=== PATIENT | female | born 2000 | race Caucasian/White ===

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

== ENCOUNTER 2021-04-05 20:55 | Emergency (ER) | payer OTHER, MEDICAID, SELFPAY ==
[2021-04-05 20:57] VITALS: BP 141/87; PULSE 71; RESP 16; TEMP 36.4; O2SAT 100; BMI 25.4
--- NOTE | 2021-04-05 22:08 | EX.ED.DYSGE1 ---
HPI History of Present Illness Chief Complaint: Anxiety Narrative Narrative: 21-year-old female presenting with anxiety. She states she has a long history of anxiety. She states she has not bipolar. She decided she would stop taking her medications 3 years ago and has intermittent episodes of anxiety. Currently she thinks that she is anxious because she has a new job. She denies chest pain or shortness of breath. She denies fever or chills. She states she is otherwise eating and drinking normally. She does have some difficulty sleeping but is getting sleep. She states that she does have a history of insomnia in the past. She has not seen her primary care provider or psychiatric professional in years. [facility] Medical History Anxiety Asthma Migraines Home Medications hydroxyzine pamoate [Vistaril] 25 mg PO TID PRN #30 cap 04/05/21 [Rx Last Taken Unknown] Allergy/AdvReac Type Severity Reaction Status Date / Time escitalopram [From Lexapro] Allergy Rash Verified 04/05/21 20:56 Social History Smoking Status: Never smoker ROS ROS ED Constitutional Constitutional ED: Denies chills or fever(s) Eyes Eyes: Denies blurry vision or change in vision ENT ENT ED: Denies ear pain or rhinorrhea Cardiovascular Cardiovascular: Denies chest pain or palpitations Respiratory/Chest Respiratory/Chest: Denies cough or dyspnea Gastrointestinal Gastrointestinal: Denies abdominal pain, nausea or vomiting Genitourinary Genitourinary ED: Denies dysuria or hematuria Musculoskeletal Musculoskeletal: Denies arthralgias or myalgias Neurologic Neurologic: Denies headache(s) or weakness Psychiatric Psychiatric: Reports anxiety; Denies suicidal ideation or suicidal thoughts EXAM Physical Exam Const Vital Signs: 04/05/21 20:57 Temperature 97.6 F L Temperature Source Temporal Pulse Rate 71 Respiratory Rate 16 Blood Pressure 141/87 H Blood Pressure Mean 105 Pulse Ox 100 Oxygen Delivery Method Room Air Positive well nourished General Appearance ED: NAD HEENT Reports moist mucous membranes Negative for trauma Eyes PERRL and EOMs intact bilaterally Resp normal respiratory effort and clear to auscultation bilaterally Cardio regular rate, regular rhythm and no murmurs GI normal to inspection, nondistended, normoactive bowel sounds Neuro oriented x3 and CN's II-XII intact bilaterally Sensorium / Orientation: alert Psych mental status grossly normal Mood & Affect: anxious Skin no rashes or lesions noted and no wounds MDM MDM MDM Narrative Medical decision making narrative: Patient presenting with anxiety. She has a history of this. She thinks that the stress from her new job is causing it. She is not on any medication because she took her self off of it. From her story she does not sound manic. She has not suicidal or homicidal. Patient was given Ativan and felt improved. I will give her hydroxyzine for home until she can follow-up with Dr. Souza. Patient stable at this time. Impression: 1. Anxiety Discharge Plan Triage Chief Complaint: Anxiety ED Provider: Gold Springer Dx/Rx/DC Orders Instructions: ED Anxiety Reaction Prescriptions: New hydroxyzine pamoate [Vistaril] 25 mg capsule 25 mg PO TID PRN (Reason: anxiety) Qty: 30 RF: 0 Primary Care Provider: Rubia Souza Referrals: Rubia Souza MD [Primary Care Provider] - Disposition Disposition: Home, Self Care
[2021-04-05] MEDS: LORazepam 1 MG Tablet PO (22:17)
--- NOTE | 2021-04-05 22:51 | ED.RN ---
patient reports feeling better and comfortable going home
== END 2021-04-05 23:14 | disposition home or self-care (01) ==
PROVIDERS: Emergency Provider Student in an Organized Health Care Education/Training Program; PCP Pediatrics
DX: F41.9 Anxiety disorder, unspecified (principal); J45.909 Unspecified asthma, uncomplicated
CPT/HCPCS: 99283

== ENCOUNTER 2021-05-02 17:24 | Emergency (ER) | payer OTHER, MEDICAID, SELFPAY ==
[2021-05-02 17:25] VITALS: BP 120/89; PULSE 77; RESP 16; TEMP 36.6; O2SAT 99; BMI 25.6
--- NOTE | 2021-05-02 17:26 | NURSING ---
NO OLD EKGS
--- NOTE | 2021-05-02 17:48 | EKG12_ITS ---
Test Reason : CP Blood Pressure : / mmHG Vent. Rate : 063 BPM Atrial Rate : 063 BPM P-R Int : 132 ms QRS Dur : 074 ms QT Int : 380 ms P-R-T Axes : 046 061 027 degrees QTc Int : 388 ms Normal sinus rhythm with sinus arrhythmia Normal ECG Confirmed by ALVARO CHRISTENSEN, FELICIA ([id number]), proposal editor KATT CHEN ([id number]) on 05/06/2021 1:20:18 PM Referred By: KIMBERLY Confirmed By:FELICIA JOHN MD
[2021-05-02 18:00] VITALS: BP 110/67
[2021-05-02 18:00] LABS: Absolute Lymphocyte Count 2.72 X10^3/uL (0.83-4.51); Absolute Neutrophil Count 5.5 X10^3/uL (2.0-7.7); Basophil# 0.07 X10^3/uL; Basophil% 0.8 % (0-1); Eosinophil# 0.06 X10^3/uL; Eosinophils% 0.7 % (0-5); Hematocrit 42.5 % (37-47); Hemoglobin 13.6 g/dL (12.0-15.0); Lymphocyte # 2.72 X10^3/ul (0.83-4.51); Lymphocyte % 30.3 % (19-41); Mean Corpuscular Hgb 27.5 pg (27.0-32.0); Mean Corpuscular Volume 85.9 fL (81-99); Mean Platelet Vol. 11.6 fl (6.2-12.0); Monocyte% 6.7 % (0-10); NRBC Flagged by Analyzer 0 % (0-5); Neutrophil % 61.3 % (47-70); Platelet Count 294 K/mm3 (150-450); RBC Distribution Width CV 12.4 % (11.6-14.6); RBC Distribution Width SD 38.6 fl (35.1-43.9); Red Blood Count 4.95 M/mm3 (4.2-5.4)
--- NOTE | 2021-05-02 18:00 | RAD_ITS ---
STUDY: X-RAY CHEST REASON FOR EXAM: Female, 21 years old. CP TECHNIQUE: AP portable COMPARISON: December 2015 FINDINGS: The lungs are clear and expanded. There is no demonstrated pleural abnormality. Normal size heart. Normal mediastinum and bailey. Normal visualized pulmonary arteries. Normal visualized aortic arch and descending thoracic aorta. Normal visualized thoracic spine. Normal visualized ribs, clavicles, and shoulders. There is no demonstrated abnormality of the visualized soft tissue structures of the upper abdomen. RAD/Chest 1 View (Portable) IMPRESSION: Normal x-ray examination of the chest. Electronically Signed: Fabio Ramirez MD at 18:25 EDT , Service support ,
[2021-05-02] MEDS: 0.9% Normal Saline 1,000 ML 150 ML IV (18:11)
[2021-05-02 18:26] LABS: D-Dimer Quantitative (DVT/PE) 0.85 FEU/ug/m (0.27-0.49)
[2021-05-02 18:31] LABS: Anion Gap 7 (5-15); BUN 8 mg/dL (7-18); BUN/Creat Ratio 10.8 RATIO (10-20); Calcium,Total 8.8 mg/dL (8.5-10.1); Chloride 104 mmol/L (98-107); Creatinine, Serum 0.74 mg/dL (0.55-1.02); EST Glomerular Filtration Rate 106 mL/min (>60); Est Glom Filt Rate - Afr Amer 128 mL/min (>60); Estimated Creatinine Clearance 95.91 ml/min; Glucose 80 mg/dL (74-106); Potassium 3.8 mmol/L (3.5-5.1); Sodium Level 138 mmol/L (136-145); Thyroid Stim Hormone (TSH) 2.04 uIU/mL (0.358-3.74); Troponin-I HS < 3.0 pg/mL (3.0-53.7)
[2021-05-02 18:32] LABS: Internal QC Validated? YES +Cl - CLEAR BKGD; Pregnancy, Serum, hCG Quali. NEGATIVE Negative
--- NOTE | 2021-05-02 18:39 | CT_ITS ---
STUDY: CTA CHEST REASON FOR EXAM: Female, 21 years old. chest pain RADIATION DOSAGE (If Supplied By Facility): CTDIvol = ( 11.78 ) mGy, DLP = ( 368.35 ) mGycm TECHNIQUE: The examination was performed with the intravenous administration of IV 100mL Isovue-370. Post-processing of the angiographic images was performed, with multiplanar reformation and 3D reconstruction. Individualized dose optimization techniques were used for this CT. COMPARISON: Portable chest 05/02/2021 FINDINGS: Normal enhancement of the main pulmonary artery and right and left pulmonary arteries. Normal enhancement of the bilateral peripheral pulmonary arteries. There is no demonstrated pulmonary embolism. Normal thoracic aorta and visualized great vessels. There is no demonstrated aortic dissection. Normal heart and pericardium. Normal mediastinum. Normal hilar regions. Normal visualized trachea and bronchi. The lungs are well expanded. Normal pulmonary parenchyma. Normal pleura. Normal chest wall structures. Normal osseous structures. Normal visualized upper abdomen. CT/CTA Chest W/WO Contrast IMPRESSION: Normal CTA chest examination, without a demonstrated pulmonary embolism or arterial dissection. Electronically Signed: Fabio Ramirez MD at 19:37 EDT , Service support ,
--- NOTE | 2021-05-02 18:45 | EDS_ITS ---
HPI History of Present Illness Chief Complaint: Chest Pain Informant: patient Onset/Context/Timing Onset: Today Quality: Positive for Pressure Location: Substernal Current Severity: Mild Maximum Severity: Moderate Narrative Narrative: Patient presents secondary to 15 minutes of chest pressure. She has been dealing with dizzy episodes recently which she describes as both lightheadedness and spinning. Patient states these symptoms come on fairly frequently. She has not found any specific enticing factor. She is scheduled to see a geophysical manager next week about this. Today she had chest pressure which is a new symptom for her. [facility] Medical History Anxiety Asthma Migraines Home Medications hydroxyzine pamoate [Vistaril] 25 mg PO TID PRN #30 cap 04/05/21 [Rx Last Taken Unknown] Allergy/AdvReac Type Severity Reaction Status Date / Time escitalopram [From Lexapro] Allergy Rash Verified 05/02/21 17:24 Social History Smoking Status: Never smoker ROS ROS ED Constitutional Constitutional ED: Denies chills or fever(s) Eyes Eyes: Denies change in vision ENT ENT ED: Denies sore throat Cardiovascular Cardiovascular: Reports chest pain Respiratory/Chest Respiratory/Chest: Denies cough or dyspnea Gastrointestinal Gastrointestinal: Denies abdominal pain, diarrhea, nausea or vomiting Genitourinary Genitourinary ED: Denies dysuria Musculoskeletal Musculoskeletal: Denies back pain Integumentary Denies rash Neurologic Neurologic: Reports other Details: Dizziness ; Denies headache(s) or weakness Psychiatric Psychiatric: Denies anxiety or depression Endocrine Endocrinology: Denies polydipsia or polyuria Allergic/Immunologic Allergic/Immunologic ED: Denies urticaria EXAM Physical Exam Const Vital Signs: 05/02/21 17:25 05/02/21 18:00 05/02/21 19:21 Temperature 97.9 F Temperature Source Oral Pulse Rate 77 57 L Respiratory Rate 16 20 H Blood Pressure 120/89 H 110/67 Blood Pressure Mean 99 81 Pulse Ox 99 100 Oxygen Delivery Method Room Air Room Air Positive well nourished and well developed General Appearance ED: well developed HEENT Reports normocephalic and head/scalp atraumatic Eyes PERRL and EOMs intact bilaterally Neck supple Chest Wall inspection of chest normal and palpation of chest normal Resp normal respiratory effort and clear to auscultation bilaterally Cardio regular rate and regular rhythm GI normal to inspection, nondistended, normoactive bowel sounds Palpation: soft Back/Spine no CVA tenderness Extremity normal to inspection Neuro oriented x3 and no sensory deficits noted Sensorium / Orientation: alert Motor Exam: strength 5/5 throughout Psych mental status grossly normal Skin no rashes or lesions noted Heart Score History: Slightly/Non-Suspicious ECG: Normal Age: </= 45 years Risk Factors: No Risk Factors Troponin: </= Normal Limit Score: 0 MDM MDM MDM Narrative Medical decision making narrative: Patient was placed on cardiac cath lab manager. EKG, labs, chest x-ray are obtained. Lab Data Attestation: I reviewed the patient's lab results. Labs: Laboratory Results - last 24 hr 05/02/21 05/02/21 05/02/21 17:35 17:35 17:35 WBC 9.0 RBC 4.95 Hgb 13.6 Hct 42.5 MCV 85.9 MCH 27.5 MCHC 32.0 RDW Std Deviation 38.6 RDW Coeff of Paul 12.4 Plt Count 294 MPV 11.6 Immature Gran % (Auto) 0.200 Neut % (Auto) 61.3 Lymph % (Auto) 30.3 [place] % (Auto) 6.7 Eos % (Auto) 0.7 Baso % (Auto) 0.8 Absolute Neuts (auto) 5.5 Absolute Lymphs (auto) 2.72 Nucleated RBC % 0 D-Dimer Quant (PE/DVT) Sodium 138 Potassium 3.8 Chloride 104 Carbon Dioxide 27.0 Anion Gap 7 BUN 8 Creatinine 0.74 Estim Creat Clear Calc 95.91 Est GFR (MDRD) Af Amer 128 Est GFR (MDRD) Non-Af 106 BUN/Creatinine Ratio 10.8 Glucose 80 Calcium 8.8 Troponin I High Sens < 3.0 L TSH 2.04 Serum , Qual NEGATIVE 05/02/21 17:55 WBC RBC Hgb Hct MCV MCH MCHC RDW Std Deviation RDW Coeff of Paul Plt Count MPV Immature Gran % (Auto) Neut % (Auto) Lymph % (Auto) [place] % (Auto) Eos % (Auto) Baso % (Auto) Absolute Neuts (auto) Absolute Lymphs (auto) Nucleated RBC % D-Dimer Quant (PE/DVT) 0.85 H* Sodium Potassium Chloride Carbon Dioxide Anion Gap BUN Creatinine Estim Creat Clear Calc Est GFR (MDRD) Af Amer Est GFR (MDRD) Non-Af BUN/Creatinine Ratio Glucose Calcium Troponin I High Sens TSH Serum , Qual Radiography Chest X-Ray - ED: 1 View, Read by ED Physician, Normal, Heart, Lungs and Mediastinum Diagnostic Testing: Radiology Impression Chest X-Ray 05/02/21 18:00 IMPRESSION: Normal x-ray examination of the chest. Electronically Signed: Fabio Ramirez MD at 18:25 EDT , Service support , Chest CTA 05/02/21 18:39 IMPRESSION: Normal CTA chest examination, without a demonstrated pulmonary embolism or arterial dissection. Electronically Signed: Fabio Ramirez MD at 19:37 EDT , Service support , EKG Initial EKG: Attestation: I personally reviewed and interpreted this EKG as follows: Interpretation: Sinus Rhythm (Sinus at 63 with no acute ischemia.) Treatment and Re-Evaluation Comments:: Lab work is reviewed with the patient. D-dimer is slightly elevated and patient is sent for a CTA. This reveals no evidence of PE or dissection. Patient has been on cardiac cath lab manager throughout her ED stay with no significant arrhythmias. She already has a follow-up appointment scheduled with cardiology next week. Patient is encouraged to return for worsened symptoms or concerns. Discharge Plan Triage Chief Complaint: Chest Pain ED Provider: Destiny Bruce Dx/Rx/DC Orders Clinical Impression: Atypical chest pain, Dizziness Instructions: ED Chest Pain, Uncertain Cause, ED Dizziness, Uncertain Cause Prescriptions: No Action hydroxyzine pamoate [Vistaril] 25 mg capsule 25 mg PO TID PRN (Reason: anxiety) Qty: 30 RF: 0 Primary Care Provider: Patricia Vadlivia NP Referrals: Patricia Valdivia NP, DIRECTOR OF REVENUE CYCLE MANAGEMENT-C [Primary Care Provider] - Activity Restrictions/Additional Instructions: Follow-up next week with cardiology as scheduled. Disposition Disposition: Home, Self Care
[2021-05-02 19:21] VITALS: PULSE 57; RESP 20; O2SAT 100
[2021-05-02 20:08] VITALS: BP 129/81; PULSE 64; RESP 16; O2SAT 99
== END 2021-05-02 20:08 | disposition home or self-care (01) ==
PROVIDERS: Emergency Provider Emergency Medicine; PCP Registered Nurse
DX: R07.89 Other chest pain (principal); R42 Dizziness and giddiness; R79.89 Other specified abnormal findings of blood chemistry; F41.9 Anxiety disorder, unspecified; J45.909 Unspecified asthma, uncomplicated; Z79.899 Other long term (current) drug therapy
CPT/HCPCS: 71045; 71275; 80048; 84443; 84484; 84703; 85025; 85379; 93005; 96360; 96361; 99284; J7030; Q9967; A4216

== ENCOUNTER 2021-05-09 18:50 | Emergency (ER) | payer OTHER, MEDICAID, SELFPAY ==
[2021-05-09 18:51] VITALS: BP 114/64; PULSE 75; RESP 16; TEMP 37.1; O2SAT 100
[2021-05-09 18:52] VITALS: BP 114/64; PULSE 75; RESP 16; TEMP 37.1; O2SAT 100; BMI 29.7
--- NOTE | 2021-05-09 19:38 | EKG12_ITS ---
Test Reason : CP Blood Pressure : / mmHG Vent. Rate : 071 BPM Atrial Rate : 071 BPM P-R Int : 140 ms QRS Dur : 082 ms QT Int : 384 ms P-R-T Axes : 039 061 018 degrees QTc Int : 417 ms Sinus rhythm with marked sinus arrhythmia Otherwise normal ECG Confirmed by ARACELI CHRISTENSEN, LETTY ([id number]), fan mail editor KATT CHEN ([id number]) on 05/13/2021 10:37:16 AM Referred By: MICHI Confirmed By:HERVE CHARLES MD
--- NOTE | 2021-05-09 19:59 | EDS_ITS ---
HPI History of Present Illness Chief Complaint: Chest Pain Narrative Narrative: Patient presenting with chest pain which he has been dealing with for a couple of weeks. She also has associated dizziness/lightheadedness. She was seen by cardiology yesterday and started on fludrocortisone for orthostatic hypotension. Patient states she was at work and noticed that she was having symptoms again. Patient came to the ED for evaluation. Patient denies any cardiac history or other medical problems. Patient denies fever, chills, cough. Patient states that her symptoms are similar to what she is experiencing over the last 2 weeks. PE Risk Factors: Negative for Recent Travel/Surgery, Recent Immobilization, Prior DVT or PE, Cancer and OCP + Smoking + >/=35 PFSH PFSH Medical History Anxiety Asthma Migraines Home Medications hydroxyzine pamoate [Vistaril] 25 mg PO TID PRN #30 cap 04/05/21 [Rx Last Taken Unknown] Allergy/AdvReac Type Severity Reaction Status Date / Time escitalopram [From Lexapro] Allergy Rash Verified 05/02/21 17:24 Social History Smoking Status: Never smoker ROS ROS ED Constitutional Constitutional ED: Denies chills, fever(s) or sweats Eyes Eyes: Denies blurry vision or change in vision ENT ENT ED: Denies ear pain, rhinorrhea or sore throat Cardiovascular Cardiovascular: Reports chest pain and other Details: Lightheadedness with standing ; Denies palpitations or racing heartbeat Respiratory/Chest Respiratory/Chest: Denies cough, dyspnea or sputum Gastrointestinal Gastrointestinal: Denies abdominal pain, constipation, diarrhea or vomiting Genitourinary Genitourinary ED: Denies dysuria, hematuria or urinary frequency Musculoskeletal Musculoskeletal: Denies arthralgias, myalgias or neck pain Integumentary Denies abscess, Abrasions or rash Neurologic Neurologic: Denies headache(s), paresthesias or weakness Psychiatric Psychiatric: Denies anxiety, depression, suicidal ideation or suicidal thoughts Endocrine Endocrinology: Denies polydipsia or polyuria EXAM Physical Exam Const Vital Signs: 05/09/21 18:51 05/09/21 18:52 05/09/21 20:08 Temperature 98.7 F 98.7 F Temperature Source Temporal Temporal Pulse Rate 75 75 Pulse Rate [Lying] Pulse Rate [Sitting] Pulse Rate [Standing] Respiratory Rate 16 16 Blood Pressure 114/64 114/64 Blood Pressure [Lying] Blood Pressure [Sitting] Blood Pressure [Standing] Blood Pressure Mean 80 80 Blood Pressure Mean [Lying] Blood Pressure Mean [Sitting] Blood Pressure Mean [Standing] Pulse Ox 100 100 Oxygen Delivery Method Room Air Room Air Room Air 05/09/21 20:10 Temperature Temperature Source Pulse Rate Pulse Rate [Lying] 57 L Pulse Rate [Sitting] 63 Pulse Rate [Standing] 65 Respiratory Rate Blood Pressure Blood Pressure [Lying] 100/62 Blood Pressure [Sitting] 109/67 Blood Pressure [Standing] 108/68 Blood Pressure Mean Blood Pressure Mean [Lying] 74 Blood Pressure Mean [Sitting] 81 Blood Pressure Mean [Standing] 81 Pulse Ox Oxygen Delivery Method Positive well developed General Appearance ED: well developed and NAD; Negative for pallor HEENT Reports normocephalic, head/scalp atraumatic and moist mucous membranes normocephalic and atraumatic Eyes PERRL and EOMs intact bilaterally Neck no lymphadenopathy and supple Chest Wall inspection of chest normal and palpation of chest normal Resp normal respiratory effort and clear to auscultation bilaterally Auscultation: Negative for rales, rhonchi or wheezes Cardio regular rate and regular rhythm GI Auscultation: normoactive bowel sounds Palpation: soft Narrative: Deferred Back/Spine Cervical Spine: cervical spine tenderness Extremity normal to inspection General Extremety ED: Yes edema and tenderness General Extremity: edema Neuro oriented x3 and CN's II-XII intact bilaterally Sensorium / Orientation: alert Motor Exam: strength 5/5 throughout Psych mental status grossly normal Attitude: No agitated Skin no rashes or lesions noted and no wounds General Skin Exam: Negative for jaundice or pallor Heart Score History: Slightly/Non-Suspicious ECG: Normal Age: </= 45 years Risk Factors: No Risk Factors Troponin: </= Normal Limit Score: 0 MDM MDM MDM Narrative Medical decision making narrative: Patient presenting with chest pain and dizziness that he has been experiencing for the last couple of weeks. She was seen in the ED for this on the . Patient had a negative work-up at that time except orthostatic hypotension. Patient was seen by her punch out crew member yesterday and started fluid cortisone yesterday for orthostatic hypotension. Patient had return of her symptoms. Patient is PERC negative and previously had a CTA on the which was negative. EKG on my interpretation is sinus rhythm at [address] elevation or depression. [place] interval 140 ms, QRS duration 82 ms, QTC 417 ms. Patient's heart score is 0. Lab work shows a leukocytosis of 11.3 which was present previously and is actually lower. Otherwise her lab work is normal. Troponin is less than 3. Chest x-ray shows no acute cardiopulmonary process on my interpretation and the radiologist does agree. Patient is not orthostatic in the ED today. Patient symptoms unknown but I do not believe it represents ACS or PE given she recently had CTA of the chest and is PERC negative. Patient stable for discharge at this time. Impression: 1. Chest pain, noncardiac 2. Dizziness uncertain cause Lab Data Attestation: I reviewed the patient's lab results. Labs: Laboratory Results - last 24 hr 05/09/21 05/09/21 20:03 20:03 WBC 11.3 H RBC 4.52 Hgb 12.8 Hct 39.6 MCV 87.6 MCH 28.3 MCHC 32.3 RDW Std Deviation 39.2 RDW Coeff of Paul 12.1 Plt Count 252 MPV 11.9 Immature Gran % (Auto) 0.400 Neut % (Auto) 68.3 Lymph % (Auto) 22.9 [place] % (Auto) 6.7 Eos % (Auto) 1.0 Baso % (Auto) 0.7 Absolute Neuts (auto) 7.7 Absolute Lymphs (auto) 2.58 Nucleated RBC % 0 Sodium 139 Potassium 3.7 Chloride 107 Carbon Dioxide 26.0 Anion Gap 6 BUN 8 Creatinine 0.63 Estim Creat Clear Calc 112.66 Est GFR (MDRD) Af Amer 155 Est GFR (MDRD) Non-Af 128 BUN/Creatinine Ratio 12.7 Glucose 80 Calcium 9.1 Troponin I High Sens < 3.0 L Discharge Plan Triage Chief Complaint: Chest Pain ED Provider: Gold Springer Dx/Rx/DC Orders Instructions: ED Chest Pain, Noncardiac, ED Dizziness, Uncertain Cause Prescriptions: No Action hydroxyzine pamoate [Vistaril] 25 mg capsule 25 mg PO TID PRN (Reason: anxiety) Qty: 30 RF: 0 Primary Care Provider: Patricia Valdivia NP Referrals: Skip,Patricia AUDIO/VISUAL OPERATOR, AUDIO/VISUAL OPERATOR-C [Primary Care Provider] - Disposition Disposition: Home, Self Care
[2021-05-09] MEDS: Aspirin 81 MG TAB.CHEW 324 MG PO (20:04)
[2021-05-09 20:10] VITALS: BP 100/62; BP 108/68; BP 109/67; PULSE 57; PULSE 63; PULSE 65
[2021-05-09 20:10] LABS: Absolute Lymphocyte Count 2.58 X10^3/uL (0.83-4.51); Absolute Neutrophil Count 7.7 X10^3/uL (2.0-7.7); Basophil# 0.08 X10^3/uL; Basophil% 0.7 % (0-1); Eosinophil# 0.11 X10^3/uL; Hematocrit 39.6 % (37-47); Hemoglobin 12.8 g/dL (12.0-15.0); Lymphocyte # 2.58 X10^3/ul (0.83-4.51); Lymphocyte % 22.9 % (19-41); Mean Corp Hgb Conc 32.3 g/dL (32-36); Mean Corpuscular Hgb 28.3 pg (27.0-32.0); Mean Corpuscular Volume 87.6 fL (81-99); Mean Platelet Vol. 11.9 fl (6.2-12.0); Monocyte# 0.75 X10^3/uL; Monocyte% 6.7 % (0-10); NRBC Flagged by Analyzer 0 % (0-5); Neutrophil % 68.3 % (47-70); Platelet Count 252 K/mm3 (150-450); RBC Distribution Width CV 12.1 % (11.6-14.6); RBC Distribution Width SD 39.2 fl (35.1-43.9); Red Blood Count 4.52 M/mm3 (4.2-5.4); White Blood Count 11.3 K/mm3 (4.4-11.0)
--- NOTE | 2021-05-09 20:20 | RAD_ITS ---
STUDY: X-RAY CHEST REASON FOR EXAM: Female, 21 years old. Chest pain TECHNIQUE: Single frontal view of the chest. COMPARISON: 05/02/2021. FINDINGS: The lungs are clear and expanded. There is no demonstrated pleural abnormality. Normal size heart. Normal mediastinum and bailey. Normal visualized pulmonary arteries. Normal visualized aortic arch and descending thoracic aorta. Normal visualized thoracic spine. Normal visualized ribs, clavicles, and shoulders. There is no demonstrated abnormality of the visualized soft tissue structures of the upper abdomen. RAD/Chest 1 View (Portable) IMPRESSION: Normal x-ray examination of the chest. Electronically Signed: Ajit Charles MD at 21:26 EDT Tel , Service support ,
[2021-05-09 20:43] LABS: Anion Gap 6 (5-15); BUN 8 mg/dL (7-18); BUN/Creat Ratio 12.7 RATIO (10-20); Calcium,Total 9.1 mg/dL (8.5-10.1); Chloride 107 mmol/L (98-107); Creatinine, Serum 0.63 mg/dL (0.55-1.02); EST Glomerular Filtration Rate 128 mL/min (>60); Est Glom Filt Rate - Afr Amer 155 mL/min (>60); Estimated Creatinine Clearance 112.66 ml/min; Glucose 80 mg/dL (74-106); Potassium 3.7 mmol/L (3.5-5.1); Sodium Level 139 mmol/L (136-145); Troponin-I HS < 3.0 pg/mL (3.0-53.7)
[2021-05-09 21:06] VITALS: BP 107/62; PULSE 62; RESP 16; O2SAT 94
== END 2021-05-09 21:08 | disposition home or self-care (01) ==
PROVIDERS: Emergency Provider Student in an Organized Health Care Education/Training Program; PCP Registered Nurse
DX: R07.89 Other chest pain (principal); R42 Dizziness and giddiness; F41.9 Anxiety disorder, unspecified; J45.909 Unspecified asthma, uncomplicated; Z79.899 Other long term (current) drug therapy
CPT/HCPCS: 71045; 80048; 84484; 85025; 93005; 99285; A4216

== ENCOUNTER 2025-05-15 21:55 | Emergency (ER) | payer BC, SELFPAY ==
[2025-05-15 21:55] VITALS: BP 161/83; PULSE 120; RESP 20; TEMP 36; O2SAT 100; BMI 26.9
--- NOTE | 2025-05-15 22:06 | EX.ED.DYSGE1 ---
HPI History of Present Illness Chief Complaint: Laceration Informant: patient Narrative Narrative: Patient is a 25-year-old female with past medical history of anxiety and asthma who is right-hand dominant. She states roughly 20 minutes prior to arrival she was cutting up vegetables and her cat was climbing on the curtains. She states that she looked up to tell her cat to stop and she instinctively reached out for the knife she was using an ax and then grabbed the sharp end and cut her right thumb. She denies any numbness tingling or weakness. She states she was uncertain if she would need sutures or not secondary to the laceration and therefore comes in for evaluation [facility] Medical History Anxiety Migraines Asthma Home Medications ?Medication ?Instructions ?Recorded ?Last Taken ?Type hydroxyzine pamoate 25 mg capsule 25 mg PO TID PRN anxiety #30 caps 04/05/21 Unknown Rx (Vistaril) Allergy/AdvReac Type Severity Reaction Status Date / Time escitalopram (From Lexapro) Allergy Rash Verified 05/02/21 17:24 Social History Smoking Status: Never smoker [facility] ED Constitutional Constitutional ED: Denies chills or fever(s) ENT ENT ED: Denies sore throat Cardiovascular Cardiovascular: Denies chest pain Respiratory/Chest Respiratory/Chest: Denies cough or dyspnea Gastrointestinal Gastrointestinal: Denies abdominal pain, diarrhea, nausea or vomiting Musculoskeletal Musculoskeletal: Reports other Details: Positive right hand/thumb pain Integumentary Reports other Details: Positive right thumb laceration Neurologic Neurologic: Denies headache(s), paresthesias or weakness Hematologic/Lymphatic Hematologic/Lymphatic: Denies easy bleeding or easy bruising EXAM Physical Exam Const Vital Signs: 05/15/25 21:55 05/15/25 23:04 Temperature 96.8 F L 97.9 F Temperature Source Temporal Pulse Rate 120 H 80 Respiratory Rate 20 H 18 Blood Pressure 161/83 H 115/70 Blood Pressure Mean 109 85 Pulse Ox 100 100 Oxygen Delivery Method Room Air Positive well nourished and well developed General Appearance ED: well developed HEENT HEENT Narrative: Normocephalic atraumatic Eyes PERRL and EOMs intact bilaterally General Eye ED: Negative for scleral icterus Neck supple Resp normal respiratory effort and clear to auscultation bilaterally Cardio regular rhythm Rate: tachycardic Extremity Extremity Narrative: Right upper extremity is neurovascularly intact; AIN/PIN are intact and normal. Along the volar aspect of the right thumb just below the DIP joint is a horizontal 1.5 cm laceration that is subcutaneous layer deep with minimal ooze of blood and no retained foreign object. No ligamentous or tendon damage noted either Remainder of the exam is normal Neuro oriented x3 and CN's II-XII intact bilaterally Sensorium / Orientation: alert Motor Exam: strength 5/5 throughout Psych mental status grossly normal Skin Skin Narrative: Laceration to the right thumb as documented above MDM MDM MDM Narrative Medical decision making narrative: Patient arrived to ER hypertensive and tachycardic but was visibly anxious and nervous. She sustained a simple laceration to her right thumb. There is no sign of ligamentous or tendon damage no retained foreign object or no signs of bony deformity. Therefore do not feel the need for x-ray or lab work as there is no obvious signs of secondary infection either. The patient had the wound close as documented below. Her tetanus status was updated. Following closure of the wound she is neurovascularly intact with full active range of motion and is otherwise safe for discharge Patient had the right thumb cleaned with chlorhexidine. It was anesthetized using 5 mL of 1% lidocaine without epinephrine and digital block fashion. The wound was copiously irrigated with normal saline. Then three 4-0 Ethilon sutures were placed in simple interrupted fashion. This brought the wound edges getter well with good approximation. Patient tolerated the procedure without complication History & Record Review Discussion w/independent historian: Patient Discharge Plan Triage Chief Complaint: Laceration ED Provider: Brandon Wray Dx/Rx/DC Orders Clinical Impression: Laceration of right thumb, Anxiety Instructions: ED Laceration, Hand: All Closures Prescriptions: No Action hydroxyzine pamoate [Vistaril] 25 mg capsule 25 mg PO TID PRN (Reason: anxiety) Qty: 30 0RF Stand Alone Forms: ED Work / School Excuse Primary Care Provider: Care Physician,No Primary Referrals: Patricia Valdivia ANIMAL HEALTH TECHNICIAN, ANIMAL HEALTH TECHNICIAN-C [Non-Staff] - Activity Restrictions/Additional Instructions: Please return to the ER or see your family doctor in 7 to 10 days for suture removal Print Language: Persian Disposition Disposition: Home, Self Care Discharge Date/Time: 05/15/25 23:05
[2025-05-15] MEDS: Lidocaine 1% (20 ml mdv) 20 ML Vial INFILT (22:12)
[2025-05-15 23:04] VITALS: BP 115/70; PULSE 80; RESP 18; TEMP 36.6; O2SAT 100
--- OUTSIDE RECORDS SUMMARY | 2025-05-15 23:04 | XMS RPT_ITS | CCD ---
Author Organization [facility] Team Providers Care Club Car Attendant Name Role Phone Unavailable Primary Care Provider Unavailabl e YAMILKA TOM Referring Unavailable KATELYNN CAMPO Attending Unavailable KATELYNN CAMPO Referring Unavailable KATELYNN CAMPO Referring Unavailable Unavailable Primary Care Provider Unavailabl e Allergies Allergy Classification Reported Allergen(s) Allergy Type Date of Onset Reaction(s) Facility (7 sources) Escitalopram; Translations: [ESCITALOPRAM] Drug Allergy 07-20-2020 Rash [facility] Medications Current Medications Medication Drug Class(es) Dates Sig (Normalized) Sig (Original) [id number] actuat albuterol 0.09 mg/actuat metered dose inhaler (20 sources) beta2-Adrenergic Agonist Start: 11-06-2024 take 2 puff(s) by inhalation every four hours as needed for wheezing albuterol HFA (PROVENTIL HFA, VENTOLIN HFA) 90 mcg/actuation inhaler Indications: Lower respiratory infection Inhale 2 Puffs as instructed every 4 hours as needed for wheezing/shortness of breath. 8 g 11/06/2024 Active Start: 12-29-2023 take 2.5 mg by inhal ation every four hours as needed albuterol (PROVENTIL) 2.5 mg /3 mL (0.083 %) nebulizer solution Use 3 mL via nebulizer every 4 hours as needed for wheezing/shortness of breath. Use over 5-15minutes. 75 mL 12/29/2023 Active Start: 12-29-2023 End: 05-23-2024 take 2 puff(s) by inhalation every six hours as needed albuterol HFA (PROAIR HFA) 90 mcg/actuation inhaler Inhale 2 Puffs as instructed every 6 hours as needed. 1 Each 12/29/2023 05/23/2024 Discontinued Start: 02-23-2021 End: 05-23-2024 take 2 puff(s) by inhalation every four hours as needed albuterol HFA (PROAIR HFA) 90 mcg/actuation inhaler Indications: Suspected COVID-19 virus infection , Mild intermittent asthma with exacerbation Inhale 2 Puffs as instructed every 4 hours as needed. 1 Each 02/23/2021 05/23/2024 Discontinued albuterol HFA (P ROAIR HFA) 90 mcg/actuation inhaler Inhale 2 Puffs as instructed. Active Comment on above: Inhale 2 Puffs as in structed. Inhale 2 Puffs as in structed every 4 hours as needed. Inhale 2 Puffs as in structed every 6 hours as needed. Use 3 mL via nebuliz er every 4 hours as needed for wheezing/shortness of breath. Use over 5-15minutes. benzonatate 100 mg oral capsule (1 source) Non-narcotic Antitussive Start: 5 take 1 capsule by mouth three times daily as needed for cough benzonatate (TESSALON PERLE) 100 mg capsule Indications: Lower respiratory infection Take 1 capsule by mouth three times a day as needed for cough for up to 12 doses. 12 capsule 11/06/2024 Active cetirizine hydrochloride 10 mg oral tablet (6 sources) Histamine-1 Receptor Antagonist Start: 9 take 1 tablet by mouth once daily as needed cetirizine (ZYRTEC) 10 mg tablet Indications: Seasonal allergic rhinitis due to pollen Take 1 tablet by mouth once daily as needed. 30 tablet 2 02/15/2019 Active Comment on above: Take 1 tablet by [facility] once daily as needed. doxycycline monohydrate 100 mg oral capsule (2 sources) Tetracycline-class Drug Start: 5 End: 5 take 1 capsule by mouth twice daily doxycycline monohydrate (MONODOX) 100 mg capsule Indications: Lower respiratory infection Take 1 capsule by mouth two times a day for 5 days. 10 capsule 11/06/2024 11/11/2024 Active Start: 01-01-2024 End: 01-08-2024 take 1 tablet by mouth twice daily doxycycline (VIBRA-TABS) 100 mg tablet Indications: Acute cough , Mild intermittent asthma with acute exacerbation Take 1 tablet by mouth two times a day for 7 days. 14 tablet 0 01/01/2024 01/08/2024 Active Comment on above: Take 1 tablet by [facility] two times a day for 7 days. fluticasone propionate 0.05 mg/actuat metered dose nasal spray (7 sources) Corticosteroid Start: 02-16-20 End: 01-01-20 take 2 spray(s) by mouth once daily fluticasone (FLONASE) 50 mcg/actuation nasal spray Indications: Acute cough , Mild intermittent asthma with acute exacerbation Use 2 Sprays in each nostril once daily. Rinse mouth after use. 11.1 mL 01/01/2024 Active Comment on above: Use 2 Sprays in each nostril once daily. Rinse mouth after use. metroNIDAZOLE 500 mg oral tablet (1 source) Nitroimidazole Antimicrobial Start: 05-24-20 End: 05-31-20 take 1 tablet by mouth twice daily metroNIDAZOLE (FLAGYL) 500 mg tablet Take 1 tablet by mouth two times a day for 7 days. 14 tablet 0 05/24/2024 05/31/2024 Active Completed/Discontinued Medications Medication Drug Class(es) Dates Sig (Normalized) Sig (Original) albuterol 0.833 mg/ml / ipratropium bromide 0.167 mg/ml inhalation solution (1 source) Anticholinergic, beta2-Adrenergic Agonist Start: 01-01-2024 End: 01-01-2024 ipratropium-albute rol 3 mL nebulizer solution (DUONEB) Start: 01-01-2024 End: 01-01-2024 ipratropium-albuterol 3 mL n ebulizer solution (DUONEB) FLUoxetine (4 sources) Serotonin Reuptake Inhibitor End: 05-23-2024 FLUOXETINE HCL (PROZAC ORAL) Take by mouth. 05/23/2024 Discontinued End: 05-23-2024 FLUOXETINE HCL (PROZAC ORAL) Take by mouth. 0 05/23/2024 Discontinued FLUOXETINE HCL ( PROZAC ORAL) Take by mouth. 0 Active Comment on above: Take by mouth. mupirocin 0.02 mg/mg topical ointment (4 sources) RNA Synthetase Inhibitor Antibacterial Start: End: mupirocin (BACTROBAN) 2 % ointment Indications: Paronychia of finger, left Apply 1 application to affected area three times daily. Location: left index finger 1 Tube 01/19/2019 05/23/2024 Discontinued Comment on above: Apply 1 application to affected area three times daily. Location: left index finger olopatadine 2 mg/ml ophthalmic solution (4 sources) Histamine-1 Receptor Inhibitor Start: 9 End: 4 take 1 drop(s) into the eye(s) once daily as needed Olopatadine (PATADAY) 0.2 % drop Indications: Seasonal allergic rhinitis due to pollen Use 1 Drop in both eyes once daily as needed. 1 Bottle 02/15/2019 05/23/2024 Discontinued Comment on above: Use 1 Drop in both e yes once daily as needed. predniSONE 10 mg oral tablet (5 sources) Start: 4 End: 4 predniSONE (DELTASONE) 10 mg tablet Indications: Acute cough , Mild intermittent asthma with acute exacerbation Take 4 tabs daily for 3 days, then 2 tabs daily for 3 days, then 1 tab daily for 3 days with food. 21 tablet 0 01/01/2024 05/23/2024 Discontinued Start: 12-29-2023 End: 01-03-2024 take 2 tablets by mouth once daily predniSONE (DELTASONE) 20 mg tablet Take 2 tablets by mouth once daily for 5 days. 10 tablet 12/29/2023 01/03/2024 Comment on above: Take 2 tablets by mo ut once daily for 5 days. Take 4 tabs daily fo r 3 days, then 2 tabs daily for 3 days, then 1 tab daily for 3 days with food. sertraline 50 mg oral tablet (4 sources) Serotonin Reuptake Inhibitor End: 05-23-2024 take 1 tablet by mouth once daily sertraline (ZOLOFT) 50 mg tablet Take 50 mg by mouth once daily. 05/23/2024 Discontinued Comment on above: Take 50 mg by mouth once daily. topiramate (4 sources) End: 05-23-2024 topiramate (TOPAMAX ORAL) Take by mouth. 05/23/2024 Discontinued End: 05-23-2024 topiramate (TOPAMAX ORAL) Ta ke by mouth. 0 05/23/2024 Discontinued topiramate (TOPA MAX ORAL) Take by mouth. 0 Active Comment on above: Take by mouth. triamcinolone acetonide 0.25 mg/ml topical cream (4 sources) Corticosteroid Start: 07-20-2020 End: 05-23-2024 triamcinolone (KENALOG) 0.025 % cream Indications: Allergic rash present on examination Apply 1 application to affected area twice daily. 30 g 07/20/2020 05/23/2024 Discontinued Comment on above: Apply 1 application to affected area twice daily. Problems Problem Classification Problem Date Documented Da te Episodic/Chronic Asthma (2 sources) Exacerbation of asthma; Translations: [Unspecified asthma with (acute) exacerbation] 12-29-2023 Chronic Inflammatory diseases of female pelvic organs (1 source) Bacterial vaginosis; Translations: [Acute vaginitis] 05-24-2024 Episodic Other female genital disorders (1 source) Abnormal uterine bleeding; Translations: [Abnormal uterine and vaginal bleeding, unspecified] 05-23-2024 Chronic Other female genital disorders (1 source) Abnormal uterine and vaginal bleeding, unspecified; Translations: [Abnormal uterine bleeding] Onset: 05-23-2024 Chronic Other lower respiratory disease (2 sources) Cough; Translations: [Acute cough] 01-01-2024 Episodic Other lower respiratory disease (1 source) Lower respiratory tract infection; Translations: [Unspecified acute lower respiratory infection] 11-06-2024 Episodic Other screening for suspected conditions (not mental disorders or infectious disease) (1 source) Cancer cervix screening status; Translations: [Encounter for screening for malignant neoplasm of cervix] 05-23-2024 Episodic Unclassified (1 source) Acute cough; Translations: [Acute cough] Onset: 01-01-2024 Results Test Name Value Interpretation Reference Range Facil ity CASIMIROOVon 11-06-2024 CNOV Office Visit ([facility] ) MALLIKA ESPINO ([id number]) 2 F Date Time Provider Department 11/06/24 11:30 AM DELIA RODRIGUEZ [facility] During your visit today, we recorded the following information about you: Temperature Pulse Respiration Blood pressure 99.2 degrees 100/minute 18/minute 110/68 Weight 73.2 kg Delia Rodriguez APRN.CNP 11/06/2024 11:41 AM Signed This note was created using Dimeres. Subjective Mallika Espino is a 24 year old female. HPI For the last 2 -3 weeks pt has had sore throat cough headache occasional vomiting and, sinus congestion. She notes episodic fevers. Review of Systems As above Objective BP 110/68 Pulse 100 Temp 37.3 ?C (99.2 ?F) (Tympanic) Resp 18 Wt 73.2 kg (161 lb 6 oz) LMP 12/29/2023 (Exact Date) SpO2 99% Physical Exam Vitals and nursing note reviewed. Constitutional: General: She is not in acute distress. Appearance: Normal appearance. She is not ill-appearing. HENT: Head: Normocephalic. Mouth/Throat: Mouth: Mucous membranes are moist. Eyes: Conjunctiva/sclera: Conjunctivae normal. Cardiovascular: Rate and Rhythm: Normal rate and regular rhythm. Pulmonary: Effort: Pulmonary effort is normal. Breath sounds: Normal breath sounds. Musculoskeletal: General: Normal range of motion. Cervical back: Normal range of motion. Skin: General: Skin is warm and dry. Neurological: General: No focal deficit present. Mental Status: She is alert. Psychiatric: Mood and Affect: Mood normal. Behavior: Behavior normal. Assessment and Plan ASSESSMENT/PLAN: 1. Lower respiratory infection - ICD9: 519.8, ICD10: J22 With several weeks of slowly worsening symptoms I am concerned for possible pneumonia. Patient started on medications as noted below. We did discuss viral testing which patient declines at this time. She will follow-up with PCP. - BENZONATATE 100 MG CAPSULE - DOXYCYCLINE MONOHYDRATE 100 MG CAPSULE - ALBUTEROL SULFATE HFA 90 MCG/ACTUATION AEROSOL INHALER Delia Rodriguez APRN.CNP Allergies As of Date: 11/06/2024 Noted Allergy Reaction LEXAPRO (ESCITALOPRAM) 07/20/2020 2 - Rash Date Reviewed: 11/06/2024 Reviewed by: Delia Rodriguez APRN.CNP - Fully Assessed Reason for Visit: Cough [28] Cmt: Cough, ST, RUSSELL, vomiting and sinus congestion x 3 weeks Primary Visit Diagnosis:Lower respiratory infection [J22] Order(s):benzonatate (TESSALON PERLE) 100 mg capsuleTake 1 capsule by mouth three times a day as needed for cough for up to 12 doses.Disp: 12 capsuleRfl: 0 doxycycline monohydrate (MONODOX) 100 mg capsuleTake 1 capsule by mouth two times a day for 5 days.Disp: 10 capsuleRfl: 0 albuterol HFA (PROVENTIL HFA, VENTOLIN HFA) 90 mcg/actuation inhalerInhale 2 Puffs as instructed every 4 hours as needed for wheezing/shortness of breath.Disp: 8 gRfl: 0 Prescriptions as of 11/06/2024 - benzonatate (TESSALON PERLE) 100 mg capsule Take 1 capsule by mouth three times a day as needed for cough for up to 12 doses. - doxycycline monohydrate (MONODOX) 100 mg capsule Take 1 capsule by mouth two times a day for 5 days. - albuterol HFA (PROVENTIL HFA, VENTOLIN HFA) 90 mcg/actuation inhaler Inhale 2 Puffs as instructed every 4 hours as needed for wheezing/shortness of breath. - fluticasone (FLONASE) 50 mcg/actuation nasal spray Use 2 Sprays in each nostril once daily. Rinse mouth after use. - albuterol (PROVENTIL) 2.5 mg /3 mL (0.083 %) nebulizer solution Use 3 mL via nebulizer every 4 hours as needed for wheezing/shortness of breath. Use over 5-15minutes. - cetirizine (ZYRTEC) 10 mg tablet Take 1 tablet by mouth once daily as needed. - albuterol HFA (PROAIR HFA) 90 mcg/actuation inhaler Inhale 2 Puffs as instructed. Problem List As Of Date: 11/06/2024 (None) Prescriptions ordered this encounter Disp Refills Start End BENZONATATE 100 MG CAPSULE 12 c* 0 11/06/2024 Route: ORAL Sig: Take 1 capsule by mouth three times a day as needed for cough for up to 12 doses. DOXYCYCLINE MONOHYDRATE 100 MG CAPSU* 10 c* 0 11/06/2024 11/11/2024 Route: ORAL Sig: Take 1 capsule by mouth two times a day for 5 days. ALBUTEROL SULFATE HFA 90 MCG/ACTUATI* 8 g 0 11/06/2024 Cmt: Generic or brand: dispense inhaler preferred by patient/insurance unless DARIO flag is selected. Route: INHALATION Sig: Inhale 2 Puffs as instructed every 4 hours as needed for wheezing/shortness of breath. Letter Text Encounter Status:Closed by DELIA RODRIGUEZ on 11/06/24 [facility] 05-24-2024 KELLIN Telephone (OBGYWM) MALLIKA ESPINO ([id number]) 2 F Date Time Provider Department 05/24/24 KATELYNN CAMPO During your visit today, we recorded the following information about you: Katelynn Campo APRN.[facility] 05/24/2024 7:20 AM Signed Please notify patient: You tested positive for bacterial vaginosis. This is an imbalance of your normal bacteria. Your partner does not need treated. I will send a prescription for Flagyl 500mg by mouth twice a day for 7 days. 1) No alcohol during treatment and for 72 hours after last dose. 2) No intercourse during treatment. 3) Probiotic by mouth once daily for 30 days or as needed. Please let me know if you have any questions. Katelynn Campo APRN.Destiny Welch RN 05/24/2024 11:00 AM Signed Patient notified. Voiced understanding. Destiny Bautista RN Allergies As of Date: 05/24/2024 Noted Allergy Reaction LEXAPRO (ESCITALOPRAM) 07/20/2020 2 - Rash Date Reviewed: 05/23/2024 Reviewed by: Joana Timmons MA - Fully Assessed Reason for Visit: Results [95] Primary Visit Diagnosis:Bacterial vaginosis [N76.0, B96.89] Order(s):metroNIDAZOL E (FLAGYL) 500 mg tabletTake 1 tablet by mouth two times a day for 7 days.Disp: 14 tabletRfl: 0 Prescriptions as of 05/24/2024 - metroNIDAZOLE (FLAGYL) 500 mg tablet Take 1 tablet by mouth two times a day for 7 days. - fluticasone (FLONASE) 50 mcg/actuation nasal spray Use 2 Sprays in each nostril once daily. Rinse mouth after use. - albuterol (PROVENTIL) 2.5 mg /3 mL (0.083 %) nebulizer solution Use 3 mL via nebulizer every 4 hours as needed for wheezing/shortness of breath. Use over 5-15minutes. - cetirizine (ZYRTEC) 10 mg tablet Take 1 tablet by mouth once daily as needed. - albuterol HFA (PROAIR HFA) 90 mcg/actuation inhaler Inhale 2 Puffs as instructed. Problem List As Of Date: 05/24/2024 (None) Prescriptions ordered this encounter Disp Refills Start End METRONIDAZOLE 500 MG TABLET 14 t* 0 05/24/2024 05/31/2024 Route: ORAL Sig: Take 1 tablet by mouth two times a day for 7 days. Encounter Status:Closed by DESTINY BAUTISTA on 05/24/24 Normal [facility] 4 HCG.beta subunit Qn m[IU]/mL Normal <5.0 [facility] Comment on above: Order Comment: Speci men Type: BLOOD SPECIMEN Ordering Facility: [facility] Address: [address] [place] [address] Result Comment: Gertrudis galeas Performed By: #### 2 [id number] #### [facility] CLIA [id number] [address] [place] [address] [place] [address] [place] BACTERIAL VAGINOSIS NAATon 0 05-23-2024 Lactobacillus crispatus+gasseri+ jensenii + Gardnerella vaginalis + Atopobium vaginae rRNA SISI+probe Ql (Vag fld) Positive Abnormal Negative for bacterial vaginosis [facility] Comment on above: Order Comment: Speci men Type: FLUID SPECIMEN Ordering Facility: [facility] Address: [address] [place] [address] Performed By: #### L [id number] #### [facility] CLIA [id number] [address] [place] [address] [place] [facility] CLIA [id number] [address] [place] [address] [place] C. trachomatis+N. gonorrhoea e DNA SISI+probe Ql (Unsp spec)on 05-23-2024 C. trachomatis rRNA SISI+probe Ql (Unsp spec) Negative Normal Negative for Chlamydia trachomatis by amplificaton [facility] Comment on above: Order Comment: Speci men Type: FLUID SPECIMEN Ordering Facility: [facility] Address: [address] [place] [address] Performed By: #### L [id number] #### [facility] CLIA [id number] [address] [place] [address] [place] [facility] CLIA [id number] [address] [place] [address] [place] N. gonorrhoeae rRNA SISI+probe Ql (Unsp spec) Negative Normal Negative for Neisseria gonorrhoeae by amplification [facility] Comment on above: Order Comment: Speci men Type: FLUID SPECIMEN Ordering Facility: [facility] Address: [address] [place] [address] Performed By: #### L [id number] #### [facility] CLIA [id number] [address] [place] [address] [place] [facility] CLIA [id number] [address] [place] [address] [place] DC/TRICHOMONAS NAATon 0 05-23-2024 C. glabrata RNA SISI+probe Ql (Vag fld) Negative Normal Negative for Dc glabrata [facility] Comment on above: Order Comment: Speci men Type: FLUID SPECIMEN Ordering Facility: [facility] Address: [address] [place] [address] Performed By: #### L [id number] #### [facility] CLIA [id number] [address] [place] [address] [place] [facility] CLIA [id number] [address] [place] [address] [place] Dc sp DNA SISI+probe Ql (Vag fld) Negative Normal Negative for Dc species [facility] Comment on above: Order Comment: Speci men Type: FLUID SPECIMEN Ordering Facility: [facility] Address: [address] [place] [address] Performed By: #### L [id number] #### [facility] CLIA [id number] [address] [place] [address] [place] [facility] CLIA [id number] [address] [place] [address] [place] T. vaginalis DNA SISI+probe Ql (Unsp spec) Negative Normal Negative for Trichomonas vaginalis by amplification [facility] Comment on above: Order Comment: Speci men Type: FLUID SPECIMEN Ordering Facility: [facility] Address: [address] [place] [address] Performed By: #### L [id number] #### [facility] CLIA [id number] [address] [place] [address] [place] [facility] CLIA [id number] [address] [place] [address] [place] CBC panel Auto (Bld)on 05-23 Erythrocyte distribution width (RBC) [Ratio] 12.1 % 11.5 - 15.0 % [facility] Hematocrit (Bld) [Volume fraction] 40.9 % 36.0 - 46.0 % [facility] Hemoglobin (Bld) [Mass/Vol] 13.7 g/dL 11.5 - 15.5 g/dL [facility] Interpretation and review of laboratory results Normal [facility] MCH (RBC) [Entitic mass] 28.2 pg 26.0 - 34.0 pg [facility] MCHC (RBC) [Mass/Vol] 33.5 g/dL 30.5 - 36.0 g/dL [facility] MCV (RBC) [Entitic vol] 84.3 fL 80.0 - 100.0 fL [facility] Nucleated RBC (Bld) [#/Vol] NINF [facility] Platelet mean volume (Bld) [Entitic vol] 12.2 fL 9.0 - 12.7 fL [facility] Platelets (Bld) [#/Vol] 269 10*3/uL [facility] RBC (Bld) [#/Vol] 4.85 10*6/uL 3.90 - 5.20 m/uL [facility] WBC (Bld) [#/Vol] 9.16 10*3/uL [facility] Erythrocyte distribution width (RBC) [Ratio] 12.1 % Normal 11.5-15.0 [facility] Comment on above: Order Comment: Speci men Type: FLUID SPECIMEN Ordering Facility: [facility] Address: [address] [place] [address] Performed By: #### L [id number] #### [facility] CLIA [id number] [address] [place] [address] [place] [facility] CLIA [id number] [address] [place] [address] [place] Hematocrit (Bld) [Volume fraction] 40.9 % Normal 36.0-46.0 [facility] Comment on above: Order Comment: Speci men Type: FLUID SPECIMEN Ordering Facility: [facility] Address: [address] [place] [address] Performed By: #### L [id number] #### [facility] CLIA [id number] [address] [place] [address] [place] [facility] CLIA [id number] [address] [place] [address] [place] Hemoglobin (Bld) [Mass/Vol] 13.7 g/dL Normal 11.5-15.5 [facility] Comment on above: Order Comment: Speci men Type: FLUID SPECIMEN Ordering Facility: [facility] Address: [address] [place] [address] Performed By: #### L [id number] #### [facility] CLIA [id number] [address] [place] [address] [place] [facility] CLIA [id number] [address] [place] [address] [place] MCH (RBC) [Entitic mass] 28.2 pg Normal 26.0-34.0 [facility] Comment on above: Order Comment: Speci men Type: FLUID SPECIMEN Ordering Facility: [facility] Address: [address] [place] [address] Performed By: #### L [id number] #### [facility] CLIA [id number] [address] [place] [address] [place] [facility] CLIA [id number] [address] [place] [address] [place] MCHC (RBC) [Mass/Vol] 33.5 g/dL Normal 30.5-36.0 [facility] Comment on above: Order Comment: Speci men Type: FLUID SPECIMEN Ordering Facility: [facility] Address: [address] [place] [address] Performed By: #### L [id number] #### [facility] CLIA [id number] [address] [place] [address] [place] [facility] CLIA [id number] [address] [place] [address] [place] MCV (RBC) [Entitic vol] 84.3 fL Normal 80.0-100.0 [facility] Comment on above: Order Comment: Speci men Type: FLUID SPECIMEN Ordering Facility: [facility] Address: [address] [place] [address] Performed By: #### L [id number] #### [facility] CLIA [id number] [address] [place] [address] [place] [facility] CLIA [id number] [address] [place] [address] [place] Nucleated RBC (Bld) [#/Vol] 10*3/uL Normal <0.01 [facility] Comment on above: Order Comment: Speci men Type: FLUID SPECIMEN Ordering Facility: [facility] Address: [address] [id number] Performed By: #### L [id number] #### [facility] CLIA [id number] [address] [place] [address] [place] [facility] CLIA [id number] [address] [place] [address] [place] Platelet mean volume (Bld) [Entitic vol] 12.2 fL Normal 9.0-12.7 [facility] Comment on above: Order Comment: Speci men Type: FLUID SPECIMEN Ordering Facility: [facility] Address: [address] [place] [address] Performed By: #### L [id number] #### [facility] CLIA [id number] [address] [place] [address] [place] [facility] CLIA [id number] [address] [place] [address] [place] Platelets (Bld) [#/Vol] 269 10*3/uL Normal 150-400 [facility] Comment on above: Order Comment: Speci men Type: FLUID SPECIMEN Ordering Facility: [facility] Address: [address] [place] [address] Performed By: #### L [id number] #### [facility] CLIA [id number] [address] [place] [address] [place] [facility] CLIA [id number] [address] [place] [address] [place] RBC (Bld) [#/Vol] 4.85 10*6/uL Normal 3.90-5.20 [facility] Comment on above: Order Comment: Speci men Type: FLUID SPECIMEN Ordering Facility: [facility] Address: [address] [place] [address] Performed By: #### L [id number] #### [facility] CLIA [id number] [address] [place] [address] [place] [facility] CLIA [id number] [address] [place] [address] [place] WBC (Bld) [#/Vol] 9.16 10*3/uL Normal 3.70-11.00 [facility] Comment on above: Order Comment: Speci men Type: FLUID SPECIMEN Ordering Facility: [facility] Address: [address] [place] [address] Performed By: #### L [id number] #### [facility] CLIA [id number] [address] [place] [address] [place] [facility] CLIA [id number] [address] [place] [address] [place] CNOVon 05-23-2024 CNOV Office Visit (OBGYWM ) MALLIKA ESPINO ([id number]) 2 F Date Time Provider Department 05/23/24 2:00 PM KATELYNN CAMPO During your visit today, we recorded the following information about you: Katelynn Campo APRN.CAREER PLACEMENT SPECIALIST 05/23/2024 2:48 PM Signed Java Enterprise Architect offered: Patient declines. Mallika Espino is a 24 year old female who presents for problem visit Heavy menses for 14 days. HPI: Patient is here for heavy menses, the bleeding started 05/10/2024 and has not stopped bleeding since. She changes out a super sized tampon every 1-2 hours. Experiencing some pain on the right side. Pain scale at a 4 and consistent. She describes it like a sharp throbbing pain. mother had endometriosis. OB History No obstetric history on file. Construction Manager History LMP: 12/29/2023 (Exact Date), Having periods Age at Menarche: Age at First : Age at Menopause: Construction Manager History Comments: Sexual Activity: No sexual activity data on record; No partner data on record Contraception: No contraception data on record PAST MEDICAL HISTORY No date: Psychiatric disorder PAST SURGICAL HISTORY No date: TONSILLECTOMY HX No family history on file. Social History Tobacco Use Smoking status: Never Smokeless tobacco: Never Substance Use Topics Alcohol use: Never Drug use: Never Current Outpatient Medications Medication Sig fluticasone (FLONASE) 50 mcg/actuation nasal spray Use 2 Sprays in each nostril once daily. Rinse mouth after use. albuterol (PROVENTIL) 2.5 mg /3 mL (0.083 %) nebulizer solution Use 3 mL via nebulizer every 4 hours as needed for wheezing/shortness of breath. Use over 5-15minutes. cetirizine (ZYRTEC) 10 mg tablet Take 1 tablet by mouth once daily as needed. albuterol HFA (PROAIR HFA) 90 mcg/actuation inhaler Inhale 2 Puffs as instructed. No current facility-administered medications for this visit. Allergies As of Date: 05/23/2024 Allergen Noted Reaction LEXAPRO [ESCITALOPRAM] 07/20/2020 Rash Fully Assessed 01/01/2024 REVIEW OF SYSTEMS Abdomen: No bloating, early satiety, indigestion, or increased flatulence. No abdominal pain, nausea, vomiting, diarrhea, or constipation. Bladder: No dysuria, gross hematuria, urinary frequency, urinary urgency, or incontinence. Breast: No breast lumps, nipple d/c, overlying skin changes, redness or skin retraction. Expanded ROS: SOFTWARE TESTING SPECIALIST: Positive for abnormal vaginal bleeding Allergies and current medication updated:Yes EXAM: LMP 12/29/2023 GENERAL: pleasant, female in no apparent distress HEENT: Normocephalic, atraumatic, mucus membranes moist, and no lesions CHEST: Normal inspiratory effort PELVIC: external genitalia normal, normal Bartholin's glands, urethra, [place]'s glands, no vulvar lesions, no cervical lesions, good vaginal support, physiologic discharge present, no blood noted, normal appearing perineal body and perianal region BIMANUAL: uterus normal size, shape and consistency, no adnexal masses + mild tenderness to right adnexa with palpation NEURO: alert and oriented x3,exam grossly non-focal EXTREMITIES: normal ASSESSMENT AND PLAN: 1. Abnormal uterine bleeding - ICD9: 626.9, ICD10: N93.9 (primary diagnosis) - One time occurrence - Labs and ultrasound ordered - To go to ER if using pad/tampon hourly, dizziness, chest pain, or shortness of breath - RTO after completed to discuss contraception options as patient would like to start Katelynn Campo APRN.CNP Medical Decision Making: Problems: Low: Acute, uncomplicated illness or injury Data: Unique test(s) ordered: 3+ Risk: Low: Low risk from testing/treatment Medical Decision Making Level: 3 - Low Allergies As of Date: 05/23/2024 Noted Allergy Reaction LEXAPRO (ESCITALOPRAM) 07/20/2020 2 - Rash Date Reviewed: 05/23/2024 Reviewed by: Joana Timmons MA - Fully Assessed Reason for Visit: problem visit [Other] Cmt: Heavy menses Primary Visit Diagnosis:Abnormal uterine bleeding [N93.9] Other Visit Diagnosis:Screening for cervical cancer [Z12.4] Order(s):HCG QUANTITATIVE [SQHCGQT] Order #: [id number] FUTURE COMPLETE BLOOD COUNT [SQCBC] Order #: [id number] FUTURE HEMOGLOBIN A1C [DYAOP3N] Order #: [id number] FUTURE THYROID STIMULATING HORMONE [SQTSH] Order #: [id number] FUTURE PELVIC US WHI [[id number]] Order #: [id number]: 1 FUTURE PAP TEST [GXU0006] Order #: [id number]. #:[id number] DC/TRICHOMONAS NAAT [SQCVTV] Order #: [id number] BACTERIAL VAGINOSIS NAAT [SQBVAMP] Order #: [id number] GONORRHEA/CHLAMYDIA NAAT [SQGCCT] Order #: [id number] Prescriptions as of 05/23/2024 - fluticasone (FLONASE) 50 mcg/actuation nasal spray Use 2 Sprays in each nostril once daily. Rinse mouth after use. - albuterol (PROVENTIL) 2.5 mg /3 mL (0.083 %) nebulizer solution Use 3 mL via nebulizer every 4 hours as needed for wheezing/shortness of breath. Use (more content not included)... Normal [facility] HbA1c (Bld)on 05-23-2024 Average glucose Estimated from glycated hemoglobin (Bld) [Mass/Vol] 94 mg/dL Normal [facility] Comment on above: Order Comment: Speci men Type: FLUID SPECIMEN Ordering Facility: [facility] Address: [address] [place] [address] Result Comment: eAG: (Estimated average glucose) is a calculated value from HgbA1c and is denial management representative of the average blood glucose level in the last 2-3 month period. Performed By: #### L [id number] #### [facility] CLIA [id number] [address] [place] [address] [place] [facility] CLIA [id number] [address] [place] [address] [place] HbA1c (Bld) [Mass fraction] 4.9 % Normal 4.3-5.6 [facility] Comment on above: Order Comment: Jeromei men Type: FLUID SPECIMEN Ordering Facility: [facility] Address: [address] [place] [address] Result Comment: Amer [place] Diabetes Association guidelines indicate that patients with HgbA1c in the range 5.7-6.4% are at increased risk for development of diabetes, and intervention by lifestyle modification may be beneficial. HgbA1c greater or equal to 6.5% is considered diagnostic of diabetes. Performed By: #### L [id number] #### [facility] CLIA [id number] [address] [place] [address] [place] [facility] CLIA [id number] [address] [place] [address] [place] PAP TESTon 05-23-2024 ADEQUACY Satisfactory for interpretation. Normal [facility] Comment on above: Order Comment: Speci men Type: FLUID SPECIMEN Ordering Facility: [facility] Address: [address] [place] [address] Performed By: #### L [id number] #### [facility] CLIA [id number] [address] [place] [address] [place] [facility] CLIA [id number] [address] [place] [address] [place] CASE REPORT Normal [facility] Comment on above: Order Comment: Speci men Type: FLUID SPECIMEN Ordering Facility: [facility] Address: [address] [place] [address] Result Comment: Gyne cologic Cytology Report Case: [id number] Authorizing Provider: Katelynn Campo APRN.CAREER PLACEMENT SPECIALIST Collected: 05/23/2024 02:34 PM Ordering Location: OB/Gynecology Received: 05/23/2024 04:14 PM First Screen: Naomi, Radha, CT, ASCP Rescreen: Serina Felipe Specimen: Pap Test, ThinPrep, Cervix Performed By: #### L [id number] #### [facility] CLIA [id number] [address] [place] [address] [place] [facility] CLIA [id number] [address] [place] [address] [place] CLINICAL HISTORY, CYTOLOGY, SOFTWARE TESTING SPECIALIST Abnormal Bleeding (Describe) Normal [facility] Comment on above: Order Comment: Speci men Type: FLUID SPECIMEN Ordering Facility: [facility] Address: [address] [place] [address] Result Comment: Hebandar y Performed By: #### L [id number] #### [facility] CLIA [id number] [address] [place] [address] [place] [facility] CLIA [id number] [address] [place] [address] [place] FINAL PERFORMING LAB Normal [facility] Comment on above: Order Comment: Speci men Type: FLUID SPECIMEN Ordering Facility: [facility] Address: [address] [place] [address] Result Comment: Tech nical component, meal cook screening performed at [facility], [address] [place] [address] CLIA# [id number] Diagnostic interpretation performed at [facility], [address] [place] [address] CLIA# [id number] Band Machine Operator: Chace Skelton M.D. Performed By: #### L [id number] #### [facility] CLIA [id number] [address] [place] [address] [place] [facility] CLIA [id number] [address] [id number] [place] HPV REFLEX HPV if Atypical Normal [facility] Comment on above: Order Comment: Speci men Type: FLUID SPECIMEN Ordering Facility: [facility] Address: [address] [place] [address] Performed By: #### L [id number] #### [facility] CLIA [id number] [address] [place] [address] [place] [facility] CLIA [id number] [address] [place] [address] [place] INTERPRETATION, CYTOLOGY, SOFTWARE TESTING SPECIALIST Normal [facility] Comment on above: Order Comment: Speci men Type: FLUID SPECIMEN Ordering Facility: [facility] Address: [address] [place] [address] Result Comment: Nega tive for intraepithelial lesion or malignancy. Performed By: #### L [id number] #### [facility] CLIA [id number] [address] [place] [address] [place] [facility] CLIA [id number] [address] [place] [address] [place] LMP 05/10/2024 Normal [facility] Comment on above: Order Comment: Speci men Type: FLUID SPECIMEN Ordering Facility: [facility] Address: [address] [place] [address] Performed By: #### L [id number] #### [facility] CLIA [id number] [address] [place], [place] [address] [place] [facility] CLIA [id number] [address] [place] [address] [place] PAP DISCLAIMER COMMENT The Pap Smear is a screening test for cervical cancer. False negative results occur with all screening tests, emphasizing the need for rescreening at recommended intervals, and clinical correlation. Normal [facility] Comment on above: Order Comment: Speci men Type: FLUID SPECIMEN Ordering Facility: [facility] Address: [address] [place] [address] Performed By: #### L [id number] #### [facility] CLIA [id number] [address] [place] [address] [place] [facility] CLIA [id number] [address] [place] [address] [place] PAP SCREENPLAY WRITER COMMENT This specimen has been analyzed by the ThinPrep Imaging System, an automated imaging and review system, which assists the laboratory in evaluating cells on ThinPrep Pap tests. Following automated imaging, selected nuñez from every slide are reviewed by a meal cook. Normal [facility] Comment on above: Order Comment: Gosia britton Type: FLUID SPECIMEN Ordering Facility: [facility] Address: [address] [place] [address] Performed By: #### L [id number] #### [facility] CLIA [id number] [address] [place] [address] [place] [facility] CLIA [id number] [address] [place] [address] [place] TSH SerPl-aCncon 05-23-2024 TSH Qn 1.300 m[IU]/L Normal 0.270-4.200 [facility] Comment on above: Order Comment: Gosia britton Type: FLUID SPECIMEN Ordering Facility: [facility] Address: [address] [place] [address] Result Comment: If t he patient is , TSH reference range varies by gestational period: First Trimester (weeks 9-12): 0.180-2.990 mIU/L Second Trimester: 0.110-3.980 mIU/L Third Trimester: 0.480-4.710 mIU/L Chinedu Barajas et al. A Practical Approach for the Verifications and Determination of Site- and Trimester-Specific Reference Intervals for Thyroid Function tests in . Thyroid, 2019:29:3:412-420. Primo Dave, et al. 2017 Guidelines of the [place] Thyroid Association for the Diagnosis and Management of Thyroid Disease during and the . Thyroid, 2017:27:3:315-389. Performed By: #### L [id number] #### [facility] CLIA [id number] [address] [id number] [place] [facility] CLIA [id number] [address] [address] [id number] [facility] CNOVon 01-01-2024 CNOV Office Visit (UCWSTR ) DANIELLE ESPINOASHLEIGH Meryl ([id number]) 2 F Date Time Provider Department 01/01/24 3:00 PM YAMILKA TOM WS During your visit today, we recorded the following information about you: Temperature Pulse Respiration Blood pressure 97 degrees 67/minute 26/minute 120/71 Weight 74.1 kg Yamilka Tom APRN.CAREER PLACEMENT SPECIALIST 01/01/2024 5:37 PM Signed This note was created using NoteWriter. Subjective Brandonroopa Espino is a 23 year old female. 23 year old female with PMH of asthma on albuterol inhaler PRN presents today with acute onset cough for four days. She was seen in [facility] care three days ago where she was diagnosed with acute asthma exacerbation started on oral prednisone and refilled albuterol inhaler. Since then, she is feeling significantly worse. Pertinent positives include shortness of breath, wheezing, productive cough with green sputum, fatigue, body aches, chills, nausea, sore throat, decreased appetite and dizziness although she attributes this to her POTS. Pertinent negatives include vomiting, diarrhea, rhinorrhea, nasal congestion, ear pain, and eye irritation. Symptoms are worse at night. She has been using her albuterol nebulizer q6h and her albuterol inhaler 3 times a day as well as taking the oral prednisone. The history is provided by the patient. Cough This is a new problem. The current episode started more than 2 days ago. The problem occurs constantly. The problem has been rapidly worsening. The cough is Productive of purulent sputum. There has been no fever. Associated symptoms include chills, sore throat, myalgias, shortness of breath and wheezing. Pertinent negatives include no chest pain, no sweats, no ear congestion, no ear pain, no headaches, no rhinorrhea and no eye redness. Treatments tried: oral prednisone, albuterol inhaler and albuterol nebulizer. The treatment provided no relief. She is a smoker (occassionally vapes, has not vaped in 2 weeks). Her past medical history is significant for bronchitis, pneumonia and asthma. PAST MEDICAL HISTORY Diagnosis Date Psychiatric disorder PAST SURGICAL HISTORY Procedure Laterality Date TONSILLECTOMY HX ALLERGIES Lexapro [Escitalopram] MEDICATIONS fluticasone (FLONASE) 50 mcg/actuation nasal spray Use 2 Sprays in each nostril once daily. Rinse mouth after use. predniSONE (DELTASONE) 10 mg tablet Take 4 tabs daily for 3 days, then 2 tabs daily for 3 days, then 1 tab daily for 3 days with food. doxycycline (VIBRA-TABS) 100 mg tablet Take 1 tablet by mouth two times a day for 7 days. predniSONE (DELTASONE) 20 mg tablet Take 2 tablets by mouth once daily for 5 days. albuterol HFA (PROAIR HFA) 90 mcg/actuation inhaler Inhale 2 Puffs as instructed every 6 hours as needed. albuterol (PROVENTIL) 2.5 mg /3 mL (0.083 %) nebulizer solution Use 3 mL via nebulizer every 4 hours as needed for wheezing/shortness of breath. Use over 5-15minutes. albuterol HFA (PROAIR HFA) 90 mcg/actuation inhaler Inhale 2 Puffs as instructed every 4 hours as needed. (Patient not taking: Reported on 12/29/2023) triamcinolone (KENALOG) 0.025 % cream Apply 1 application to affected area twice daily. (Patient not taking: Reported on 02/23/2021 ) topiramate (TOPAMAX ORAL) Take by mouth. (Patient not taking: Reported on 02/23/2021 ) cetirizine (ZYRTEC) 10 mg tablet Take 1 tablet by mouth once daily as needed. (Patient not taking: Reported on 02/23/2021 ) Olopatadine (PATADAY) 0.2 % drop Use 1 Drop in both eyes once daily as needed. (Patient not taking: Reported on 02/23/2021 ) sertraline (ZOLOFT) 50 mg tablet Take 50 mg by mouth once daily. (Patient not taking: Reported on 02/23/2021 ) mupirocin (BACTROBAN) 2 % ointment Apply 1 application to affected area three times daily. Location: left index finger (Patient not taking: Reported on 02/15/2019 ) FLUOXETINE HCL (PROZAC ORAL) Take by mouth. (Patient not taking: Reported on 02/23/2021 ) albuterol HFA (PROAIR HFA) 90 mcg/actuation inhaler Inhale 2 Puffs as instructed. (Patient not taking: Reported on 02/23/2021 ) No family history on file. Social History Tobacco Use Smoking status: Never Smokeless tobacco: Never Substance Use Topics Alcohol use: Never Drug use: Never Review of Systems Constitutional: Positive for activity change, appetite change, chills and fatigue. Negative for fever. HENT: Positive for sore throat. Negative for ear discharge, ear pain and rhinorrhea. Eyes: Negative for pain, discharge, redness and itching. Respiratory: Positive for cough, chest tightness, shortness of breath and wheezing. Cardiovascular: Negative for chest pain. Gastrointestinal: Positive for nausea. Negative for abdominal pain, diarrhea and vomiting. Musculoskeletal: Positive for myalgias. Negative for gait problem. Skin: Negative for color change and rash. Neurol (more content not included)... Normal [facility] XR CHEST 2V FRONTAL/LATon XR CHEST 2V FRONTAL/LAT * * *Final Report* * * DATE OF EXAM: Jan 01 2024 3:19PM WOX [id number] - XR CHEST 2V FRONTAL/LAT / PROCEDURE REASON: Acute cough * * * * Physician Interpretation * * * * EXAMINATION: CHEST RADIOGRAPH (2 VIEW FRONTAL and LATERAL) CLINICAL HISTORY: Acute cough MQ: XC2_6 EXAM DATE/TIME: 01/01/2024 3:19 PM COMPARISON: Chest x-ray 05/27/2019 RESULT: Lines, tubes, and devices: None. Lungs and pleura: No consolidation. No lung mass. No pleural effusion. No pneumothorax. Cardiomediastinal silhouette: Normal cardiomediastinal silhouette. Bones and soft tissues: Unremarkable. IMPRESSION: No acute radiographic abnormality. Director For Beauty School: [facility] Transcribe Date/Time: Jan 01 2024 3:19P Dictated by : XOCHILT NAVA MD This examination was interpreted and the report reviewed and electronically signed by: XOCHILT NAVA MD on Jan 01 2024 3:20PM EST [id number] Normal [facility] XR Chest PA and Lateralon IMPRESSION: No acute radiographic abnormality. Director For Beauty School: [facility] Transcribe Date/Time: Jan 01 2024 3:19P Dictated by : XOCHILT NAVA MD This examination was interpreted and the report reviewed and electronically signed by: XOCHILT NAVA MD on Jan 01 2024 3:20PM EST DIVISION OF RADIOLOGY * * *Final Report* * * DATE OF EXAM: Jan 01 2024 3:19PM WOX [id number] - XR CHEST 2V FRONTAL/LAT / PROCEDURE REASON: Acute cough * * * * Physician Interpretation * * * * EXAMINATION: CHEST RADIOGRAPH (2 VIEW FRONTAL & LATERAL) CLINICAL HISTORY: Acute cough MQ: XC2_6 EXAM DATE/TIME: 01/01/2024 3:19 PM COMPARISON: Chest x-ray 05/27/2019 RESULT: Lines, tubes, and devices: None. Lungs and pleura: No consolidation. No lung mass. No pleural effusion. No pneumothorax. Cardiomediastinal silhouette: Normal cardiomediastinal silhouette. Bones and soft tissues: Unremarkable. DIVISION OF RADIOLOGY Provider, [facility] 01/01/[facility]24 * * *Final Report* * * DATE OF EXAM: Jan 01 2024 3:19PM WOX [id number] - XR CHEST 2V FRONTAL/LAT / PROCEDURE REASON: Acute cough * * * * Physician Interpretation * * * * EXAMINATION: CHEST RADIOGRAPH (2 VIEW FRONTAL & LATERAL) CLINICAL HISTORY: Acute cough MQ: XC2_6 EXAM DATE/TIME: 01/01/2024 3:19 PM COMPARISON: Chest x-ray 05/27/2019 RESULT: Lines, tubes, and devices: None. Lungs and pleura: No consolidation. No lung mass. No pleural effusion. No pneumothorax. Cardiomediastinal silhouette: Normal cardiomediastinal silhouette. Bones and soft tissues: Unremarkable. IMPRESSION IMPRESSION: No acute radiographic abnormality. Director For Beauty School: [facility] Transcribe Date/Time: Jan 01 2024 3:19P Dictated by : XOCHILT NAVA MD This examination was interpreted and the report reviewed and electronically signed by: XOCHILT NAVA MD on Jan 01 2024 3:20PM EST [facility] Radiology Study observation (narrative) [facility] XR Chest PA and LateralOrder ed By: [facility] Provider on 01-01-2024 [facility] CNOVon 12-29-2023 CNOV Office Visit (UCWSTR ) MALLIKA ESPINO ([id number]) 2 F Date Time Provider Department 12/29/23 10:15 AM TROY SANTIZO WSTR During your visit today, we recorded the following information about you: Temperature Pulse Respiration Blood pressure 97.6 degrees 89/minute 18/minute 112/76 Weight Last Period 74 kg 12/29/23 Troy Santizo PA-C 12/29/2023 10:51 AM Signed This note was created using [employer]ual[employer]. Subjective Mallika Espino is a 23 year old female. HPI Presents with a chief complaint of cough and wheeze since last night. She has a history of asthma. She has been out of her albuterol over the past few weeks. She has not seen PCP in about 2-1/2 years. She states she is aged out of [facility] and does not have an adult provider. No fever. Her chest has been tight. She feels like her allergies are flared up as well. She does have Zyrtec but has not been taking that. No fever. No body aches or chills. No vomiting or diarrhea. Review of Systems Constitutional: Negative. HENT: Positive for congestion and rhinorrhea. Negative for ear pain and sore throat. Respiratory: Positive for cough, chest tightness, shortness of breath and wheezing. Cardiovascular: Negative. Gastrointestinal: Negative. Genitourinary: Negative. Musculoskeletal: Negative. All other systems reviewed and are negative. PAST MEDICAL HISTORY Diagnosis Date Psychiatric disorder Current Outpatient Medications Medication Sig Dispense Refill predniSONE (DELTASONE) 20 mg tablet Take 2 tablets by mouth once daily for 5 days. 10 tablet 0 albuterol HFA (PROAIR HFA) 90 mcg/actuation inhaler Inhale 2 Puffs as instructed every 6 hours as needed. 1 Each 0 albuterol (PROVENTIL) 2.5 mg /3 mL (0.083 %) nebulizer solution Use 3 mL via nebulizer every 4 hours as needed for wheezing/shortness of breath. Use over 5-15minutes. 75 mL 0 albuterol HFA (PROAIR HFA) 90 mcg/actuation inhaler Inhale 2 Puffs as instructed every 4 hours as needed. (Patient not taking: Reported on 12/29/2023) 1 Each 0 triamcinolone (KENALOG) 0.025 % cream Apply 1 application to affected area twice daily. (Patient not taking: Reported on 02/23/2021 ) 30 g 0 topiramate (TOPAMAX ORAL) Take by mouth. (Patient not taking: Reported on 02/23/2021 ) cetirizine (ZYRTEC) 10 mg tablet Take 1 tablet by mouth once daily as needed. (Patient not taking: Reported on 02/23/2021 ) 30 tablet 2 fluticasone (FLONASE) 50 mcg/actuation nasal spray Use 2 Sprays in each nostril once daily. Rinse mouth after use. (Patient not taking: Reported on 02/23/2021 ) 1 Bottle 1 Olopatadine (PATADAY) 0.2 % drop Use 1 Drop in both eyes once daily as needed. (Patient not taking: Reported on 02/23/2021 ) 1 Bottle 0 sertraline (ZOLOFT) 50 mg tablet Take 50 mg by mouth once daily. (Patient not taking: Reported on 02/23/2021 ) mupirocin (BACTROBAN) 2 % ointment Apply 1 application to affected area three times daily. Location: left index finger (Patient not taking: Reported on 02/15/2019 ) 1 Tube 0 FLUOXETINE HCL (PROZAC ORAL) Take by mouth. (Patient not taking: Reported on 02/23/2021 ) albuterol HFA (PROAIR HFA) 90 mcg/actuation inhaler Inhale 2 Puffs as instructed. (Patient not taking: Reported on 02/23/2021 ) No current facility-administered medications for this visit. PAST SURGICAL HISTORY Procedure Laterality Date TONSILLECTOMY HX No family history on file. Social History Tobacco Use Smoking status: Never Smokeless tobacco: Never Substance Use Topics Alcohol use: Never Drug use: Never Objective BP 112/76 Pulse 89 Temp 36.4 ?C (97.6 ?F) Resp 18 Wt 74 kg (163 lb 2.3 oz) LMP 12/29/2023 (Exact Date) SpO2 100% Physical Exam Vitals reviewed. Constitutional: Appearance: Normal appearance. HENT: Head: Normocephalic and atraumatic. Right Ear: Tympanic membrane, ear canal and external ear normal. Left Ear: Tympanic membrane, ear canal and external ear normal. Nose: Congestion present. Mouth/Throat: Mouth: Mucous membranes are moist. Pharynx: Oropharynx is clear. Cardiovascular: Rate and Rhythm: Normal rate and regular rhythm. Heart sounds: Normal heart sounds. Pulmonary: Effort: Pulmonary effort is normal. Breath sounds: Normal breath sounds. Musculoskeletal: Cervical back: Neck supple. Lymphadenopathy: Cervical: No cervical adenopathy. Skin: General: Skin is warm and dry. Neurological: Mental Status: She is alert. Assessment and Plan ASSESSMENT/PLAN: 1. Asthma with acute exacerbation, unspecified asthma severity, unspecified whether persistent - ICD9: 493.92, ICD10: J45.901 -Will treat with prednisone and refilled her albuterol inhaler and nebulizer solution. Recommended starting her Zyrtec as well. I did recommend she establish with a PCP as well. Patient agreeable with plan. If worsening be s (more content not included)... Normal [facility] Progress Noteon 06-14-2021 [employer]top Spreader Authentication Interface Message Text Patient ID: Mallika Espino is a 21 y.o. female. Her chief complaint(s) include: Rash (rash started after taking new medication, hot and itchy, took benadryl to help, stopped taking medication) Assessment 1. Allergic reaction to drug, initial encounter 2. Depressive disorder Plan Mallika was seen today for rash. Diagnoses and all orders for this visit: Allergic reaction to drug, initial encounter - loratadine (CLARITIN) 10 MG tablet; Take 1 Tablet (10 mg) by mouth daily Depressive disorder - sertraline (ZOLOFT) 50 MG tablet; Take 1 Tablet (50 mg) by mouth daily Will have patient take loratadine to help with the allergic reaction. To discontinue the luvox since not tolerating. Will restart patient on zoloft since that is the medication that she tolerated in the best and had good results. Patient also provided with list of counselors and psychiatrist in the area and instructed to get into therapy since she continues to struggle with her depression and is not seeing improvements with the medications at this time. Recheck in 1 month,sooner if worsening. Return in about 1 month (around 07/14/2021) for Depression/Anxiety medication recheck. Subjective She is unaccompanied. Rash The onset has been acute. The duration has been 3 days. The pattern is persistent. The course is improving. The rash is described as red, itchy and bumpy. The symptoms are described as mild. (Had started a new medication). Symptoms are relieved by antihistamines. The patient has no fever, no fussiness, no difficulty sleeping, no rhinorrhea, no cough, no ear pain, no difficulty breathing, no vomiting and no diarrhea. The patient has been exposed to no sick contacts. The patient's past medical history is positive for drug allergy. Review of Systems Skin: Positive for rash. Objective Vital Signs 06/14/21 1040 Temp: 36.1 C (97 F) TempSrc: Temporal Weight: 76.1 kg Body mass index is 31.07 kg/m . Physical Exam Constitutional: She appears well. She is active. No distress. HENT: Head: Atraumatic. Ears: Right Ear: Tympanic membrane normal. Left Ear: Tympanic membrane normal. Mouth/Throat: Mucous membranes are moist. Eyes: Conjunctivae are normal. Cardiovascular: Normal rate and regular rhythm. Heart murmur not heard. Pulmonary/Chest: Breath sounds normal. There is normal air entry. Neurological: She is alert. Skin: Findings: Rash (resolving erythematous, papular, pruritic rash on forearm.) present. Vitals reviewed: Temperature 36.1 C (97 F), temperature source Temporal, weight 76.1 kg. Normal [facility] Progress Noteon 06-11-2021 [employer]top Spreader Authentication Interface Message Text Patient ID: Mallika Espino is a 21 y.o. female. Her chief complaint(s) include: Follow Up (anxiety and depression med check, symtoms seem to be worsening, fidgeting etc.) Assessment 1. Depression with anxiety Plan Mallika was seen today for follow up. Diagnoses and all orders for this visit: Depression with anxiety - fluvoxaMINE (LUVOX) 50 MG tablet; Take 1 Tablet (50 mg) by mouth nightly at bedtime - PHQ9 Assessment With Score Patient complaining that current medication/effexor seemed to be making her worse. Patient having a lot of problems with her anxiety and depression. Patient has been on multiple medications including prozac, zoloft, and lexapro and has not had any improvements. Will try patient on luvox to see if that helps. Discussed monitoring for side effects: Specifically for any rash since she had reaction with the lexapro. Reviewed side effects. Again, informed patient that results may take several weeks. Again, recommended patient get into some counseling. Patient denies any current suicidal ideations. Will need to monitor closely. Return in about 1 month (around 07/11/2021) for Depression/Anxiety medication recheck. Subjective She is unaccompanied. Depression HEEADSS: Suicidality: She has problems with sleep, has depression, has anxiety and has mood swings. She does not have ways to cope with stress, does not display self-confidence, has no suicidal ideation, has no homicidal ideation, does not have a psychiatrist and is not engaged in counseling. Follow-Up: taking medication as prescribed Follow-Up: desires not to stay in current treatment plan and no counseling Medication side effects: sedation (some), dry mouth (some), restlessness (fidgety), jitters/tremors (shakiness), headache and weight gain (minimal) Medication side effects: no constipation, no GI distress, no nausea, no insomnia and no increase suicidal thoughts Primary Care Review of Systems Objective Vital Signs 06/11/21 1104 BP: 113/59 Pulse: 67 Temp: 36.4 C (97.6 F) TempSrc: Temporal Weight: 73.9 kg Height: (!) 156.5 cm Body mass index is 30.17 kg/m . Physical Exam Constitutional: She appears well. She is active. No distress. HENT: Head: Atraumatic. Ears: Right Ear: Tympanic membrane and external ear normal. Left Ear: Tympanic membrane and external ear normal. Nose: Nose normal. No nasal discharge. Mouth/Throat: Mucous membranes are moist. Dentition is normal. No pharynx erythema. Eyes: Conjunctivae and EOM are normal. Pupils are equal, round, and reactive to light. Neck: Neck supple. Cardiovascular: Normal rate, regular rhythm, S1 normal and S2 normal. Pulses are palpable. Pulmonary/Chest: Effort normal and breath sounds normal. Abdominal: Soft. Bowel sounds are normal. She exhibits no distension and no mass. There is no abdominal tenderness. Musculoskeletal: Cervical back: Neck supple. General: No deformity. Neurological: She is alert. She has normal strength and normal reflexes. She exhibits normal muscle tone. Coordination and gait normal. Skin: Skin is warm. Skin is not pale and cyanotic. Findings: No rash. Vitals reviewed: Blood pressure 113/59, pulse 67, temperature 36.4 C (97.6 F), temperature source Temporal, height (!) 156.5 cm, weight 73.9 kg. Normal [facility] Progress Noteon 05-21-2021 [employer]top Spreader Authentication Interface Message Text Patient ID: Mallkia Espino is a 21 y.o. female. Her chief complaint(s) include: Anxiety (med ck) Assessment 1. Anxiety with depression Plan Mallika was seen today for anxiety. Diagnoses and all orders for this visit: Anxiety with depression - venlafaxine (EFFEXOR) 25 MG tablet; Take 1 Tablet (25 mg) by mouth 2 times daily - PHQ9 Assessment With Score Patient with significant depression/anxiety. Patient has been on several SSRI medications with minimal benefit. Patient not comfortable being on vistaril for the anxiety due to potential side effects. Will start patient on effexor to see if patient tolerates and see's improvement. Will monitor closely for any worsening symptoms or any signs and suicidal ideations. Recommend patient get into counseling. Patient states that difficult to get into counseling due to her work hours. Patient denies any current suicidal thoughts. Will need to monitor closely. Will follow up in 2 weeks to assess. May need to make adjustments in medication at that time/sooner if worsening. Return for Depression/Anxiety medication recheck: 2 weeks. Subjective She is unaccompanied. Anxiety Onset: Gradual Years Duration: > 10 years (improved for a while but now worsening over the last 1 to 2 years) Characterized by: Depressed Mood, Anxiety and Panic Attacks Course: anxiety worsening, depression stable. Symptoms: feeling down, feeling depressed, feeling anxious, irritability and self-harm (last time was 4 to 5 months ago) Symptoms: no hopelessness, no suicidal thoughts (not in last 6 months or so), no feeling afraid, no worthlessness, no visual hallucinations and no auditory hallucinations Associated Symptoms: decreased self-esteem, decreased appetite, decreased motivation and decreased sleep Associated Symptoms: no anhedonia (sometimes will struggle to enjoy herself), no worthlessness, no overeating and no purging Contributing Factors comment: Life situations/nothing specific Past Medical/Psychiatric History: depression and anxiety Previous Treatments: no counseling Current Treatments: no counseling Primary Care Review of Systems Objective Vital Signs 05/21/21 1105 BP: 115/69 Pulse: 89 Weight: 72.3 kg Height: (!) 155.8 cm Body mass index is 29.78 kg/m . Physical Exam Constitutional: She appears well. She is active. No distress. HENT: Head: Atraumatic. Ears: Right Ear: Tympanic membrane and external ear normal. Left Ear: Tympanic membrane and external ear normal. Nose: Nose normal. No nasal discharge. Mouth/Throat: Mucous membranes are moist. Dentition is normal. No pharynx erythema. Eyes: Conjunctivae and EOM are normal. Pupils are equal, round, and reactive to light. Neck: Neck supple. Cardiovascular: Normal rate, regular rhythm, S1 normal and S2 normal. Pulses are palpable. Pulmonary/Chest: Effort normal and breath sounds normal. Abdominal: Soft. Bowel sounds are normal. She exhibits no distension and no mass. There is no abdominal tenderness. Musculoskeletal: Cervical back: Neck supple. General: No deformity. Neurological: She is alert. She has normal strength and normal reflexes. She exhibits normal muscle tone. Coordination and gait normal. Skin: Skin is warm. Skin is not pale and cyanotic. Findings: No rash. Vitals reviewed: Blood pressure 115/69, pulse 89, height (!) 155.8 cm, weight 72.3 kg, last menstrual period 04/24/2021. Normal [facility] Progress Noteon 05-15-2021 [employer]top Spreader Authentication Interface Message Text We had the pleasure of seeing Mallika Espino in the [facility] at [facility] on May 15, 2021. As you know, Mallika is a 21 y.o. female seen in evaluation for chest pain. She was last seen on May 08, 2021 for symptoms of orthostatic dizziness. Mallika reports a 1-2 week history of sharp mid-sternal chest pain occurring at rest. The pain lasts for seconds to minutes and intermittently radiates to the neck and arm. The pain is worsened with inspiration and palpation. Mallika was evaluated in the Emergency Department for her symptoms with a reported negative evaluation. There has been no significant shortness of breath or palpitations. Mallika has anxiety and notes that she is scheduled for evaluation and assessment for therapy. Mallika reports improvement in her dizziness since beginning [facility]; however, notes some residual symptoms. Past medical history was reviewed and is significant for allergic rhinitis, asthma, migraine headache, and depression. Current medications are hydroxyzine, fluticasone inhaler, fluticasone nasal spray, albuterol, ondansetron, ibuprofen, and loratadine. There is an allergy to Lexapro which causes rash. On review of systems, 10 of 14 systems were reviewed and were negative other than noted above. Family history was reviewed and is unknown as Mallika was adopted. On review of social history Mallika lives in [place], [place]. She works in a [employer] factory. Physical exam showed: Vitals: Height: 159 cm, Weight - Scale: 72 kg. Heart rate was 71 beats per minute, respiratory rate was 28 breaths per minute, and blood pressure was 122/70 mmHg. In general, Mallika is acyanotic, well developed, well nourished, and in no acute distress. She appears anxious with shaking of her hands and feet. HEENT exam revealed that mucous membranes are moist. There is no thyromegaly or cervical lymphadenopathy. Respirations are comfortable. There is no use of accessory muscles. There are no retractions. Auscultation reveals good air movement bilaterally without wheezes, rales, or rhonchi. On palpation of the precordium, there are no lifts, heaves, or thrills. Auscultation reveals regular rate and rhythm with a normal S1 and physiologically split S2. There is no ejection click. There is no murmur, gallop, or rub. Radial and posterior tibial pulses are 2+, with no delay. Abdomen is soft, non-tender, and non-distended. There is no abdominal bruit. Liver is not palpable. Spleen is not palpable. Extremity exam reveals no cyanosis, clubbing, or edema. Extremities are warm and well perfused. Neurologicexam is grossly intact. There are no rashes or bruises on skin exam. DIAGNOSES: 1. Orthostatic dizziness. A. Positive orthostatic vital signs. B. Benign ECG. 2. Chest pain, non-cardiac. ASSESSMENT: Mallika is a 21 y.o. female with symptoms most consistent with non-cardiac chest pain and prior symptoms of orthostatic dizziness. RECOMMENDATIONS: 1. Continue primary medical care as directed. 2. SBE prophylaxis is not indicated. Continue Florinef 0.1 mg daily. Continue to drink a goal minimum of 80-100 ounces of caffeine free fluid daily. 3. No activity restrictions from a cardiovascular perspective. 4. We will see Mallika in follow-up in 1 month for repeat evaluation. Total encounter time was 20 minutes, which includes chart review, counseling, documentation and/or coordination of care. Normal [facility] 12 Lead EKGon 05-09-2021 12 Lead EKG [facility] Cardiovascular Services [address] [place] [address] 12 Lead EKG 05/09/211945 MR#: [id number] Acct: [id number] Name: MALLIKA ESPINO Rep #: [id number] : 2000 21 From: Mike Goddard MD Attending Dr: Status: DEP ER Ordering Dr: Gold Springer DO Date: 05/09/21 Location: ED Sex: F C Admitted: Test Reason : CP Blood Pressure : / mmHG Vent. Rate : 071 BPM Atrial Rate : 071 BPM P-R Int : 140 ms QRS Dur : 082 ms QT Int : 384 ms P-R-T Axes : 039 061 018 degrees QTc Int : 417 ms Sinus rhythm with marked sinus arrhythmia Otherwise normal ECG Confirmed by ARACELI CHRISTENSEN, LETTY ([id number]), publications editor KATT CHEN ([id number]) on 05/13/2021 10:37:16 AM Referred By: MICHI Confirmed By:HERVE GODDARD MD 05/13/21 1037 Date Mike Goddard MD CC: BEEF BONER-Rashawn Valdivia; Dr. Gold Springer, DO Signed Normal [facility] Basic Metabolic Profile (BMP )on 05-09-2021 BUN/CRE 12.7 RATIO Normal 10-20 [facility] Comment on above: Order Comment: Comme nts: Specimen #1 Performed By: #### L [id number], L100.0100, L500.2500 #### [facility] [address] [place], [address] CA,Total 9.1 mg/dL Normal 8.5-10.1 [facility] Comment on above: Order Comment: Comme nts: Specimen #1 Performed By: #### L [id number], L100.0100, L500.2500 #### [facility] [address] [place], [address] Chloride [Moles/Vol] 107 mmol/L Normal 98-107 [facility] Comment on above: Order Comment: Comme nts: Specimen #1 Performed By: #### L [id number], L100.0100, L500.2500 #### [facility] [address] [place], [address] CO2 [Moles/Vol] 26.0 mmol/L Normal 21.0-32.0 [facility] Comment on above: Order Comment: Comme nts: Specimen #1 Performed By: #### L [id number], L100.0100, L500.2500 #### [facility] [address] [place], [address] Creatinine [Mass/Vol] 0.63 mg/dL Normal 0.55-1.02 [facility] Comment on above: Order Comment: Comme nts: Specimen #1 Result Comment: The validity of the calculated GFR GFRAA in patients over 70 years has not been determined. Clinical correlation is essential. Performed By: #### L [id number], L100.0100, L500.2500 #### [facility] [address] [place], [address] ECRCL 112.66 ml/min Normal [facility] Comment on above: Order Comment: Comme nts: Specimen #1 Performed By: #### L [id number], L100.0100, L500.2500 #### [facility] [address] [place], [address] EST GFR - AA 155 mL/min Normal >60 [facility] Comment on above: Order Comment: Comme nts: Specimen #1 Result Comment: Afri can Danish GFR Calc Performed By: #### L [id number], L100.0100, L500.2500 #### [facility] [address] [place], [address] GAP 6 Normal 5-15 [facility] Comment on above: Order Comment: Comme nts: Specimen #1 Performed By: #### L [id number], L100.0100, L500.2500 #### [facility] [address] [place], [address] GFR/1.73 sq M.predicted among non-blacks MDRD (S/P/Bld) [Vol rate/Area] 128 mL/min/{1.73_m2} Normal >60 [facility] Comment on above: Order Comment: Comme nts: Specimen #1 Result Comment: Non- GFR Calc Performed By: #### L [id number], L100.0100, L500.2500 #### [facility] [address] [place], [address] Glucose [Mass/Vol] 80 mg/dL Normal 74-106 [facility] Comment on above: Order Comment: Sarae nts: Specimen #1 Result Comment: Roxie dinh note revised GLUCOSE reference range effective 2017. Performed By: #### L [id number], L100.0100, L500.2500 #### [facility] [address] [place], [address] Potassium [Moles/Vol] 3.7 mmol/L Normal 3.5-5.1 [facility] Comment on above: Order Comment: Comme nts: Specimen #1 Performed By: #### L [id number], L100.0100, L500.2500 #### [facility] [address] [place], [address] Sodium [Moles/Vol] 139 mmol/L Normal 136-145 [facility] Comment on above: Order Comment: Comme nts: Specimen #1 Performed By: #### L [id number], L100.0100, L500.2500 #### [facility] [address] [place], [address] Urea nitrogen [Mass/Vol] 8 mg/dL Normal 7-18 [facility] Comment on above: Order Comment: Comme nts: Specimen #1 Performed By: #### L [id number], L100.0100, L500.2500 #### [facility] [address] [place], [address] CBC W/Diff, Automatedon 07-2 Absolute Lymph 2.58 X10 3/uL Normal 0.83-4.51 [facility] Comment on above: Performed By: #### L [id number], L100.0100, L500.2500 #### [facility] [address] [place], [address] Absolute Neut 7.7 X10 3/uL Normal 2.0-7.7 [facility] Comment on above: Performed By: #### L [id number], L100.0100, L500.2500 #### [facility] [address] [place], [address] Basophils/100 WBC (Bld) 0.7 % Normal 0-1 [facility] Comment on above: Performed By: #### L 501.4020, L100.0100, L500.2500 #### [facility] [address] [place], [address] Eosinophils/100 WBC (Bld) 1.0 % Normal 0-5 [facility] Comment on above: Performed By: #### L [id number], L100.0100, L500.2500 #### [facility] [address] [place], [address] Erythrocyte distribution width (RBC) [Ratio] 12.1 % Normal 11.6-14.6 [facility] Comment on above: Performed By: #### L [id number], L100.0100, L500.2500 #### [facility] [address] [place], [address] Hematocrit (Bld) [Volume fraction] 39.6 % Normal 37-47 [facility] Comment on above: Performed By: #### L [id number], L100.0100, L500.2500 #### [facility] [address] [place], [address] Hemoglobin (Bld) [Mass/Vol] 12.8 g/dL Normal 12.0-15.0 [facility] Comment on above: Performed By: #### L 501.4020, L100.0100, L500.2500 #### [facility] [address] [place], [address] IG% 0.400 Normal 0.0-0.9 [facility] Comment on above: Result Comment: IG% - Immature Granulocytes (promyelocytes, myelocytes and metamyelocytes) > 1% indicates that a LEFT SHIFT is Present. Performed By: #### L [id number], L100.0100, L500.2500 #### [facility] [address] [place], [address] Lymphocytes/100 WBC (Bld) 22.9 % Normal 19-41 [facility] Comment on above: Performed By: #### L 501.4020, L100.0100, L500.2500 #### [facility] [address] [place], [address] MCH (RBC) [Entitic mass] 28.3 pg Normal 27.0-32.0 [facility] Comment on above: Performed By: #### L 501.4020, L100.0100, L500.2500 #### [facility] [address] [place], [address] MCHC (RBC) [Mass/Vol] 32.3 g/dL Normal 32-36 [facility] Comment on above: Performed By: #### L 501.4020, L100.0100, L500.2500 #### [facility] [address] [place], [address] MCV (RBC) [Entitic vol] 87.6 fL Normal 81-99 [facility] Comment on above: Performed By: #### L 501.4020, L100.0100, L500.2500 #### [facility] [address] [place], [address] Monocytes/100 WBC (Bld) 6.7 % Normal 0-10 [facility] Comment on above: Performed By: #### L 501.4020, L100.0100, L500.2500 #### [facility] [address] [place], [address] Neutrophils/100 WBC (Bld) 68.3 % Normal 47-70 [facility] Comment on above: Performed By: #### L 501.4020, L100.0100, L500.2500 #### [facility] [address] [place], [address] Nucleated RBC (Bld) [#/Vol] 0 10*3/uL Normal 0-5 [facility] Comment on above: Performed By: #### L 501.4020, L100.0100, L500.2500 #### [facility] [address] [place], [address] Platelet mean volume (Bld) [Entitic vol] 11.9 fL Normal 6.2-12.0 [facility] Comment on above: Performed By: #### L 501.4020, L100.0100, L500.2500 #### [facility] [address] [place], [address] Platelets (Bld) [#/Vol] 252 10*3/uL Normal 150-450 [facility] Comment on above: Performed By: #### L 501.4020, L100.0100, L500.2500 #### [facility] [address] [place], [address] RBC (Bld) [#/Vol] 4.52 10*6/uL Normal 4.2-5.4 [facility] Comment on above: Performed By: #### L 501.4020, L100.0100, L500.2500 #### [facility] [address] [place], [address] RDW SD 39.2 fl Normal 35.1-43.9 [facility] Comment on above: Performed By: #### L 501.4020, L100.0100, L500.2500 #### [facility] [address] [place], [address] WBC (Bld) [#/Vol] 11.3 10*3/uL High 4.4-11.0 [facility] Comment on above: Performed By: #### L 501.4020, L100.0100, L500.2500 #### [facility] [address] [place], [address] Chest 1 View (Portable)on Chest 1 View (Portable) [facility] Imaging Services [address] [place] [address] Chest 1 View (Portable) MR#: [id number] Acct: [id number] Name: MALLIKA ESPINO Rep #: [id number] : 2000 F 21 From: Ajit Charles MD PCP: PAIGE Andrews Status: DEP ER Study: Chest 1 View (Portable) Date of Exam: 05/09/21 Exam# [id number] Ordering Dr: Gold Springer DO STUDY: X-RAY CHEST REASON FOR EXAM: Female, 21 years old. Chest pain TECHNIQUE: Single frontal view of the chest. COMPARISON: 05/02/2021. FINDINGS: The lungs are clear and expanded. There is no demonstrated pleural abnormality. Normal size heart. Normal mediastinum and bailey. Normal visualized pulmonary arteries. Normal visualized aortic arch and descending thoracic aorta. Normal visualized thoracic spine. Normal visualized ribs, clavicles, and shoulders. There is no demonstrated abnormality of the visualized soft tissue structures of the upper abdomen. RAD/Chest 1 View (Portable) IMPRESSION: Normal x-ray examination of the chest. Electronically Signed: Ajit Charles MD at 21:26 EDT Tel , Service support , CC: PAIGE Valdivia; Dr. Gold Springer DO Director [employer]: Signed Normal [facility] Emergency Department Summary on 05-09-2021 Emergency Department Summary [facility] Medical Records Department [address] [place] [address] Emergency Department Summary 05/09/21 MR#: [id number] Acct: [id number] Name: MALLIKA ESPINO Rep #: [id number] : 2000 21 From: Gold Springer DO PCP: KALEB AndrewsC Status:REG ER Location: ED HPI History of Present Illness Chief Complaint: Chest Pain Narrative Narrative: Patient presenting with chest pain which he has been dealing with for a couple of weeks. She also has associated dizziness/lightheaded ness. She was seen by cardiology yesterday and started on fludrocortisone for orthostatic hypotension. Patient states she was at work and noticed that she was having symptoms again. Patient came to the ED for evaluation. Patient denies any cardiac history or other medical problems. Patient denies fever, chills, cough. Patient states that her symptoms are similar to what she is experiencing over the last 2 weeks. PE Risk Factors: Negative for Recent Travel/Surgery, Recent Immobilization, Prior DVT or PE, Cancer and OCP + Smoking + >/=35 PFSH PFSH Medical History Anxiety Asthma Migraines Home Medications hydroxyzine pamoate [Vistaril] 25 mg PO TID PRN #30 cap 04/05/21 [Rx Last Taken Unknown] Allergy/AdvReac Type Severity Reaction Status Date / Time escitalopram [From Lexapro] Allergy Rash Verified 05/02/21 17:24 Social History Smoking Status: Never smoker ROS ROS ED Constitutional Constitutional ED: Denies chills, fever(s) or sweats Eyes Eyes: Denies blurry vision or change in vision ENT ENT ED: Denies ear pain, rhinorrhea or sore throat Cardiovascular Cardiovascular: Reports chest pain and other Details: Lightheadedness with standing ; Denies palpitations or racing heartbeat Respiratory/Chest Respiratory/Chest: Denies cough, dyspnea or sputum Gastrointestinal Gastrointestinal: Denies abdominal pain, constipation, diarrhea or vomiting Genitourinary Genitourinary ED: Denies dysuria, hematuria or urinary frequency Musculoskeletal Musculoskeletal: Denies arthralgias, myalgias or neck pain Integumentary Denies abscess, Abrasions or rash Neurologic Neurologic: Denies headache(s), paresthesias or weakness Psychiatric Psychiatric: Denies anxiety, depression, suicidal ideation or suicidal thoughts Endocrine Endocrinology: Denies polydipsia or polyuria EXAM Physical Exam Const Vital Signs: 05/09/21 18:51 05/09/21 18:52 05/09/21 20:08 Temperature 98.7 F 98.7 F Temperature Source Temporal Temporal Pulse Rate 75 75 Pulse Rate [Lying] Pulse Rate [Sitting] Pulse Rate [Standing] Respiratory Rate 16 16 Blood Pressure 114/64 114/64 Blood Pressure [Lying] Blood Pressure [Sitting] Blood Pressure [Standing] Blood Pressure Mean 80 80 Blood Pressure Mean [Lying] Blood Pressure Mean [Sitting] Blood Pressure Mean [Standing] Pulse Ox 100 100 Oxygen Delivery Method Room Air Room Air Room Air 05/09/21 20:10 Temperature Temperature Source Pulse Rate Pulse Rate [Lying] 57 L Pulse Rate [Sitting] 63 Pulse Rate [Standing] 65 Respiratory Rate Blood Pressure Blood Pressure [Lying] 100/62 Blood Pressure [Sitting] 109/67 Blood Pressure [Standing] 108/68 Blood Pressure Mean Blood Pressure Mean [Lying] 74 Blood Pressure Mean [Sitting] 81 Blood Pressure Mean [Standing] 81 Pulse Ox Oxygen Delivery Method Positive well developed General Appearance ED: well developed and NAD; Negative for pallor HEENT Reports normocephalic, head/scalp atraumatic and moist mucous membranes normocephalic and atraumatic Eyes PERRL and EOMs intact bilaterally Neck no lymphadenopathy and supple Chest Wall inspection of chest normal and palpation of chest normal Resp normal respiratory effort and clear to auscultation bilaterally Auscultation: Negative for rales, rhonchi or wheezes Cardio regular rate and regular rhythm GI Auscultation: normoactive bowel sounds Palpation: soft Narrative: Deferred Back/Spine Cervical Spine: cervical spine tenderness Extremity normal to inspection General Extremety ED: Yes edema and tenderness General Extremity: edema Neuro oriented x3 and CN's II-XII intact bilaterally Sensorium / Orientation: alert Motor Exam: strength 5/5 throughout Psych mental status grossly normal Attitude: No agitated Skin no rashes or lesions noted and no wounds General Skin Exam: Negative for jaundice or pallor Heart Score History: Slightly/Non-Suspicio us ECG: Normal Age: Risk Factors: No Risk Factors Troponin: Score: 0 MDM MDM MDM Narrative Medical decision making narrative: Patient presenting with (more content not included)... Normal [facility] L501.4020on 05-09-2021 TROPONIN-I HS < 3.0 Low 3.0-53.7 [facility] Comment on above: Order Comment: Comme nts: Specimen #1 Result Comment: Roxie dinh Note: New Test Units and Gender Specific Reference Ranges. For more information see Policy Stat Procedure [place] High Sensitivity Troponin (TNIH) and attachments. Performed By: #### L 501.4020, L100.0100, L500.2500 #### [facility] [address] [place], [place], [id number] Progress Noteon 05-08-2021 [employer] Authentication Interface Message Text We had the pleasure of seeing Mallika Espino in the [facility] at [facility] on May 08, 2021. As you know, Mallika is a 21 y.o. female seen in evaluation for dizziness. She reports a 2-3 week history of dizziness associated with blurry vision and warmth. There has been no symptoms are worse with position change and have not improved with increased hydration to 64 ounces of fluid per day. Mallika reports an episode of chest pain approximately 1 week ago. There has been no significant palpitations or shortness of breath. Past medical history was reviewed and is significant for allergic rhinitis, asthma, migraine headache, and depression. Current medications are hydroxyzine, fluticasone inhaler, fluticasone nasal spray, albuterol, ondansetron, ibuprofen, and loratadine. There is an allergy to Lexapro which causes rash. On review of systems, 10 of 14 systems were reviewed and were negative other than noted above. Family history was reviewed and is unknown as Mallika was adopted. On review of social history Mallika lives in [place], [place]. 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 Physical exam showed: Vitals: Height: 159 cm, Weight - Scale: 72 kg. Heart rate was 58 beats per minute, respiratory rate was 28 breaths per minute, and blood pressure was 111/68 mmHg. Orthostatic vital signs are positive. In general, Mallika is acyanotic, well developed, well nourished, and in no acute distress. HEENT exam revealed that mucous membranes are moist. There is no thyromegaly or cervical lymphadenopathy. Respirations are comfortable. There is no use of accessory muscles. There are no retractions. Auscultation reveals good air movement bilaterally without wheezes, rales, or rhonchi. On palpation of the precordium, there are no lifts, heaves, or thrills. Auscultation reveals regular rate and rhythm with a normal S1 and physiologically split S2. There is no ejection click. There is no murmur, gallop, or rub. Radial and posterior tibial pulses are 2+, with no delay. Abdomen is soft, non-tender, and non-distended. There is no abdominal bruit. Liver is not palpable. Spleen is not palpable. Extremity exam reveals no cyanosis, clubbing, or edema. Extremities are warm and well perfused. Neurologic exam is grossly intact. There are no rashes or bruises on skin exam. A 12-lead ECG performed today that I personally reviewed demonstrated sinus rhythm and a ventricular rate of 53, LA interval of 136 msec, QRS duration of 98 msec, QTc of 373 msec, QRS axis of +64 degrees, no atrial enlargement, no ventricular hypertrophy, and no ST/T changes. DIAGNOSES: 1. Orthostatic dizziness. A. Positive orthostatic vital signs. B. Benign ECG. ASSESSMENT: Mallika is a 21 y.o. female with symptoms most consistent with orthostatic dizziness with positive orthostatic vital signs and a benign ECG. RECOMMENDATIONS: 1. Continue primary medical care as directed. 2. SBE prophylaxis is not indicated. Begin Florinef 0.1 mg daily. Continue to drink a goal minimum of 80-100 ounces of caffeine free fluid daily. 3. No activity restrictions from a cardiovascular perspective. 4. We will see Mallika in follow-up in 1 month for repeat evaluation. Total encounter time was 30 minutes, which includes chart review, counseling, documentation and/or coordination of care. Normal [facility] 12 Lead EKGon 05-02-2021 12 Lead EKG [facility] Cardiovascular Services [address] [place] [address] 12 Lead EKG 05/02/21 2647 MR#: [id number] Acct: [id number] Name: MALLIKA ESPINO Rep #: [id number] : 2000 21 From: Tone John MD Attending Dr: Status: DEP ER Ordering Dr: Destiny Bruce MD Date: 05/02/21 Location: ED Sex: F C Admitted: Test Reason : CP Blood Pressure : / mmHG Vent. Rate : 063 BPM Atrial Rate : 063 BPM P-R Int : 132 ms QRS Dur : 074 ms QT Int : 380 ms P-R-T Axes : 046 061 027 degrees QTc Int : 388 ms Normal sinus rhythm with sinus arrhythmia Normal ECG Confirmed by ALVARO CHRISTENSEN, TONE ([id number]), publications editor KATT CHEN ([id number]) on 05/06/2021 1:20:18 PM Referred By: KIMBERLY Confirmed By:TONE JOHN MD 05/06/21 1320 Date Tone John MD CC: BEEF BONER-C Katelynn Valdivia; Dr. Destiny Bruce MD Signed Normal [facility] Basic Metabolic Profile (BMP )on 05-02-2021 BUN/CRE 10.8 RATIO Normal 10-20 [facility] Comment on above: Order Comment: 1 Performed By: #### L 700.6800, L300.8000, L501.9520, L500.2500, L100.0100, L501.4020 ####[facility] [address] [place], [address] CA,Total 8.8 mg/dL Normal 8.5-10.1 [facility] Comment on above: Order Comment: 1 Performed By: #### L 700.6800, L300.8000, L501.9520, L500.2500, L100.0100, L501.4020 ####[facility] [address] [place], [address] Chloride [Moles/Vol] 104 mmol/L Normal 98-107 [facility] Comment on above: Order Comment: 1 Performed By: #### L 700.6800, L300.8000, L501.9520, L500.2500, L100.0100, L501.4020 ####[facility] [address] [place], [address] CO2 [Moles/Vol] 27.0 mmol/L Normal 21.0-32.0 [facility] Comment on above: Order Comment: 1 Performed By: #### L 700.6800, L300.8000, L501.9520, L500.2500, L100.0100, L501.4020 ####[facility] [address] [place], [address] Creatinine [Mass/Vol] 0.74 mg/dL Normal 0.55-1.02 [facility] Comment on above: Order Comment: 1 Result Comment: The validity of the calculated GFR GFRAA in patients over 70 years has not been determined. Clinical correlation is essential. Performed By: #### L 700.6800, L300.8000, L501.9520, L500.2500, L100.0100, L501.4020 ####[facility] [address] [place], [address] ECRCL 95.91 ml/min Normal [facility] Comment on above: Order Comment: 1 Performed By: #### L 700.6800, L300.8000, L501.9520, L500.2500, L100.0100, L501.4020 ####[facility] [address] [place], [address] EST GFR - AA 128 mL/min Normal >60 [facility] Comment on above: Order Comment: 1 Result Comment: Afri can Danish GFR Calc Performed By: #### L 700.6800, L300.8000, L501.9520, L500.2500, L100.0100, L501.4020 ####[facility] [address] [place], [address] GAP 7 Normal 5-15 [facility] Comment on above: Order Comment: 1 Performed By: #### L 700.6800, L300.8000, L501.9520, L500.2500, L100.0100, L501.4020 ####[facility] [address] [place], [address] GFR/1.73 sq M.predicted among non-blacks MDRD (S/P/Bld) [Vol rate/Area] 106 mL/min/{1.73_m2} Normal >60 [facility] Comment on above: Order Comment: 1 Result Comment: Non- GFR Calc Performed By: #### L 700.6800, L300.8000, L501.9520, L500.2500, L100.0100, L501.4020 ####[facility] [address] [place], [address] Glucose [Mass/Vol] 80 mg/dL Normal 74-106 [facility] Comment on above: Order Comment: 1 Result Comment: Roxie dinh note revised GLUCOSE reference range effective 2017. Performed By: #### L 700.6800, L300.8000, L501.9520, L500.2500, L100.0100, L501.4020 ####[facility] [address] [place], [address] Potassium [Moles/Vol] 3.8 mmol/L Normal 3.5-5.1 [facility] Comment on above: Order Comment: 1 Performed By: #### L 700.6800, L300.8000, L501.9520, L500.2500, L100.0100, L501.4020 ####[facility] [address] [place], [address] Sodium [Moles/Vol] 138 mmol/L Normal 136-145 [facility] Comment on above: Order Comment: 1 Performed By: #### L 700.6800, L300.8000, L501.9520, L500.2500, L100.0100, L501.4020 ####[facility] [address] [place], [address] Urea nitrogen [Mass/Vol] 8 mg/dL Normal 7-18 [facility] Comment on above: Order Comment: 1 Performed By: #### L 700.6800, L300.8000, L501.9520, L500.2500, L100.0100, L501.4020 ####[facility] [address] [place], [address] CBC W/Diff, Automatedon 07 Absolute Lymph 2.72 X10 3/uL Normal 0.83-4.51 [facility] Comment on above: Performed By: #### L 700.6800, L300.8000, L501.9520, L500.2500, L100.0100, L501.4020 #### [facility] [address] [place], [address] Absolute Neut 5.5 X10 3/uL Normal 2.0-7.7 [facility] Comment on above: Performed By: #### L 700.6800, L300.8000, L501.9520, L500.2500, L100.0100, L501.4020 #### [facility] [address] [place], [address] Basophils/100 WBC (Bld) 0.8 % Normal 0-1 [facility] Comment on above: Performed By: #### L 700.6800, L300.8000, L501.9520, L500.2500, L100.0100, L501.4020 #### [facility] [address] [place], [address] Eosinophils/100 WBC (Bld) 0.7 % Normal 0-5 [facility] Comment on above: Performed By: #### L 700.6800, L300.8000, L501.9520, L500.2500, L100.0100, L501.4020 #### [facility] [address] [place], [address] Erythrocyte distribution width (RBC) [Ratio] 12.4 % Normal 11.6-14.6 [facility] Comment on above: Performed By: #### L 700.6800, L300.8000, L501.9520, L500.2500, L100.0100, L501.4020 #### [facility] [address] [place], [address] Hematocrit (Bld) [Volume fraction] 42.5 % Normal 37-47 [facility] Comment on above: Performed By: #### L 700.6800, L300.8000, L501.9520, L500.2500, L100.0100, L501.4020 #### [facility] [address] [place], [address] Hemoglobin (Bld) [Mass/Vol] 13.6 g/dL Normal 12.0-15.0 [facility] Comment on above: Performed By: #### L 700.6800, L300.8000, L501.9520, L500.2500, L100.0100, L501.4020 #### [facility] [address] [place], [address] IG% 0.200 Normal 0.0-0.9 [facility] Comment on above: Result Comment: IG% - Immature Granulocytes (promyelocytes, myelocytes and metamyelocytes) > 1% indicates that a LEFT SHIFT is Present. Performed By: #### L 700.6800, L300.8000, L501.9520, L500.2500, L100.0100, L501.4020 #### [facility] [address] [place], [address] Lymphocytes/100 WBC (Bld) 30.3 % Normal 19-41 [facility] Comment on above: Performed By: #### L 700.6800, L300.8000, L501.9520, L500.2500, L100.0100, L501.4020 #### [facility] [address] [place], [address] MCH (RBC) [Entitic mass] 27.5 pg Normal 27.0-32.0 [facility] Comment on above: Performed By: #### L 700.6800, L300.8000, L501.9520, L500.2500, L100.0100, L501.4020 #### [facility] [address] [place], [address] MCHC (RBC) [Mass/Vol] 32.0 g/dL Normal 32-36 [facility] Comment on above: Performed By: #### L 700.6800, L300.8000, L501.9520, L500.2500, L100.0100, L501.4020 #### [facility] [address] [place], [address] MCV (RBC) [Entitic vol] 85.9 fL Normal 81-99 [facility] Comment on above: Performed By: #### L 700.6800, L300.8000, L501.9520, L500.2500, L100.0100, L501.4020 #### [facility] [address] [place], [address] Monocytes/100 WBC (Bld) 6.7 % Normal 0-10 [facility] Comment on above: Performed By: #### L 700.6800, L300.8000, L501.9520, L500.2500, L100.0100, L501.4020 #### [facility] [address] [place], [address] Neutrophils/100 WBC (Bld) 61.3 % Normal 47-70 [facility] Comment on above: Performed By: #### L 700.6800, L300.8000, L501.9520, L500.2500, L100.0100, L501.4020 #### [facility] [address] [place], [address] Nucleated RBC (Bld) [#/Vol] 0 10*3/uL Normal 0-5 [facility] Comment on above: Performed By: #### L 700.6800, L300.8000, L501.9520, L500.2500, L100.0100, L501.4020 #### [facility] [address] [place], [address] Platelet mean volume (Bld) [Entitic vol] 11.6 fL Normal 6.2-12.0 [facility] Comment on above: Performed By: #### L 700.6800, L300.8000, L501.9520, L500.2500, L100.0100, L501.4020 #### [facility] [address] [place], [address] Platelets (Bld) [#/Vol] 294 10*3/uL Normal 150-450 [facility] Comment on above: Performed By: #### L 700.6800, L300.8000, L501.9520, L500.2500, L100.0100, L501.4020 #### [facility] [address] [place], [address] RBC (Bld) [#/Vol] 4.95 10*6/uL Normal 4.2-5.4 [facility] Comment on above: Performed By: #### L 700.6800, L300.8000, L501.9520, L500.2500, L100.0100, L501.4020 #### [facility] [address] [place], [address] RDW SD 38.6 fl Normal 35.1-43.9 [facility] Comment on above: Performed By: #### L 700.6800, L300.8000, L501.9520, L500.2500, L100.0100, L501.4020 #### [facility] [address] [place], [address] WBC (Bld) [#/Vol] 9.0 10*3/uL Normal 4.4-11.0 [facility] Comment on above: Performed By: #### L 700.6800, L300.8000, L501.9520, L500.2500, L100.0100, L501.4020 #### [facility] [address] [place], [address] CTA Chest W/WO Contraston CTA Chest W/WO Contrast [facility] Imaging Services [address] [facility] [place] [address] CTA Chest W/WO Contrast MR#: [id number] Acct: [id number] Name: MALLIKA ESPINO Rep #: [id number] : 2000 F 21 From: Fabio Ramirez MD PCP: Katelynn Valdivia NP-C Status: REG ER Study: CTA Chest W/WO Contrast Date of Exam: 05/02/21 Exam# [id number] Ordering Dr: Destiny Bruce MD STUDY: CTA CHEST REASON FOR EXAM: Female, 21 years old. chest pain RADIATION DOSAGE (If Supplied By Facility): CTDIvol = ( 11.78 ) mGy, DLP = ( 368.35 ) mGycm TECHNIQUE: The examination was performed with the intravenous administration of IV 100mL Isovue-370. Post-processing of the angiographic images was performed, with multiplanar reformation and 3D reconstruction. Individualized dose optimization techniques were used for this CT. COMPARISON: Portable chest 05/02/2021 FINDINGS: Normal enhancement of the main pulmonary artery and right and left pulmonary arteries. Normal enhancement of the bilateral peripheral pulmonary arteries. There is no demonstrated pulmonary embolism. Normal thoracic aorta and visualized great vessels. There is no demonstrated aortic dissection. Normal heart and pericardium. Normal mediastinum. Normal hilar regions. Normal visualized trachea and bronchi. The lungs are well expanded. Normal pulmonary parenchyma. Normal pleura. Normal chest wall structures. Normal osseous structures. Normal visualized upper abdomen. CT/CTA Chest W/WO Contrast IMPRESSION: Normal CTA chest examination, without a demonstrated pulmonary embolism or arterial dissection. Electronically Signed: Fabio Ramirez MD at 19:37 EDT , Service support , CC: PAIGE Valdivia; Dr. Destiny Bruce MD [employer]: Signed Normal [facility] Chest 1 View (Portable)on Chest 1 View (Portable) [facility] Imaging Services [address] [place] [id number] Chest 1 View (Portable) MR#: [id number] Acct: [id number] Name: MALLIKA ESPINO Rep #: [id number] : 2000 F 21 From: Fabio Ramirez MD PCP: PAIGE Andrews Status: REG ER Study: Chest 1 View (Portable) Date of Exam: 05/02/21 Exam# [id number] Ordering Dr: Destiny Bruce MD STUDY: X-RAY CHEST REASON FOR EXAM: Female, 21 years old. CP TECHNIQUE: AP portable COMPARISON: December 2015 FINDINGS: The lungs are clear and expanded. There is no demonstrated pleural abnormality. Normal size heart. Normal mediastinum and bailey. Normal visualized pulmonary arteries. Normal visualized aortic arch and descending thoracic aorta. Normal visualized thoracic spine. Normal visualized ribs, clavicles, and shoulders. There is no demonstrated abnormality of the visualized soft tissue structures of the upper abdomen. RAD/Chest 1 View (Portable) IMPRESSION: Normal x-ray examination of the chest. Electronically Signed: Fabio Ramirez MD at 18:25 EDT , Service support , CC: PAIGE Valdivia; Dr. Destiny Bruce MD [employer]: Signed Normal [facility] D-Dimer Quantitative (DVT/PE )on 05-02-2021 D-DIMER QUANT 0.85 FEU/ug/m Invalid Interpretation Code 0.27-0.49 [facility] Comment on above: Result Comment: CRIT ICAL VALUE VERIFIED. CALLED TO SERINA PETE SUBMARINE OPERATOR 05/02/21 1826 Jorge L العلي. RESULTS READ BACK BY SAME . D-Dimer ELEVATED (>0.49): Additional studies and clinical assessments are indicated to conclude diagnosis of: Deep Vein Thrombosis (DVT) or Pulmonary Embolism (PE) Performed By: #### L 700.6800, L300.8000, L501.9520, L500.2500, L100.0100, L501.4020 ####[facility] [address] [facility] [place], [address] Emergency Department Summary on 05-02-2021 Emergency Department Summary [facility] Medical Records Department [address] [place] [address] Emergency Department Summary 05/02/21 MR#: [id number] Acct: [id number] Name: MALLIKA ESPINO Rep #: [id number] : 2000 21 From: Destiny Bruce MD PCP: PAIGE Andrews Status:DEP ER Location: ED HPI History of Present Illness Chief Complaint: Chest Pain Informant: patient Onset/Context/Timing Onset: Today Quality: Positive for Pressure Location: Substernal Current Severity: Mild Maximum Severity: Moderate Narrative Narrative: Patient presents secondary to 15 minutes of chest pressure. She has been dealing with dizzy episodes recently which she describes as both lightheadedness and spinning. Patient states these symptoms come on fairly frequently. She has not found any specific enticing factor. She is scheduled to see a salesforce specialist next week about this. Today she had chest pressure which is a new symptom for her. [facility] Medical History Anxiety Asthma Migraines Home Medications hydroxyzine pamoate [Vistaril] 25 mg PO TID PRN #30 cap 04/05/21 [Rx Last Taken Unknown] Allergy/AdvReac Type Severity Reaction Status Date / Time escitalopram [From Lexapro] Allergy Rash Verified 05/02/21 17:24 Social History Smoking Status: Never smoker ROS ROS ED Constitutional Constitutional ED: Denies chills or fever(s) Eyes Eyes: Denies change in vision ENT ENT ED: Denies sore throat Cardiovascular Cardiovascular: Reports chest pain Respiratory/Chest Respiratory/Chest: Denies cough or dyspnea Gastrointestinal Gastrointestinal: Denies abdominal pain, diarrhea, nausea or vomiting Genitourinary Genitourinary ED: Denies dysuria Musculoskeletal Musculoskeletal: Denies back pain Integumentary Denies rash Neurologic Neurologic: Reports other Details: Dizziness ; Denies headache(s) or weakness Psychiatric Psychiatric: Denies anxiety or depression Endocrine Endocrinology: Denies polydipsia or polyuria Allergic/Immunologic Allergic/Immunologic ED: Denies urticaria EXAM Physical Exam Const Vital Signs: 05/02/21 17:25 05/02/21 18:00 05/02/21 19:21 Temperature 97.9 F Temperature Source Oral Pulse Rate 77 57 L Respiratory Rate 16 20 H Blood Pressure 120/89 H 110/67 Blood Pressure Mean 99 81 Pulse Ox 99 100 Oxygen Delivery Method Room Air Room Air Positive well nourished and well developed General Appearance ED: well developed HEENT Reports normocephalic and head/scalp atraumatic Eyes PERRL and EOMs intact bilaterally Neck supple Chest Wall inspection of chest normal and palpation of chest normal Resp normal respiratory effort and clear to auscultation bilaterally Cardio regular rate and regular rhythm GI normal to inspection, nondistended, normoactive bowel sounds Palpation: soft Back/Spine no CVA tenderness Extremity normal to inspection Neuro oriented x3 and no sensory deficits noted Sensorium / Orientation: alert Motor Exam: strength 5/5 throughout Psych mental status grossly normal Skin no rashes or lesions noted Heart Score History: Slightly/Non-Suspicio us ECG: Normal Age: Risk Factors: No Risk Factors Troponin: Score: 0 MDM MDM MDM Narrative Medical decision making narrative: Patient was placed on bus driver/monitor. EKG, labs, chest x-ray are obtained. Lab Data Attestation: I reviewed the patient's lab results. Labs: Laboratory Results - last 24 hr 05/02/21 05/02/21 05/02/21 17:35 17:35 17:35 WBC 9.0 RBC 4.95 Hgb 13.6 Hct 42.5 MCV 85.9 MCH 27.5 MCHC 32.0 RDW Std Deviation 38.6 RDW Coeff of Paul 12.4 Plt Count 294 MPV 11.6 Immature Gran % (Auto) 0.200 Neut % (Auto) 61.3 Lymph % (Auto) 30.3 Gallia % (Auto) 6.7 Eos % (Auto) 0.7 Baso % (Auto) 0.8 Absolute Neuts (auto) 5.5 Absolute Lymphs (auto) 2.72 Nucleated RBC % 0 D-Dimer Quant (PE/DVT) Sodium 138 Potassium 3.8 Chloride 104 Carbon Dioxide 27.0 Anion Gap 7 BUN 8 Creatinine 0.74 Estim Creat Clear Calc 95.91 Est GFR (MDRD) Af Amer 128 Est GFR (MDRD) Non-Af 106 BUN/Creatinine Ratio 10.8 Glucose 80 Calcium 8.8 Troponin I High Sens < 3.0 L TSH 2.04 Serum , Qual NEGATIVE 05/02/21 17:55 WBC RBC Hgb Hct MCV MCH MCHC RDW Std Deviation RDW Coeff of Paul Plt Count MPV Immature Gran % (Auto) Neut % (Auto) Lymph % (Auto) Gallia % (Auto) Eos % (Auto) Baso % (Auto) Absolute Neuts (auto) Absolute Lymphs (auto) Nucleated RBC % D-Dimer Quant (PE/DVT) 0.85 H* Sodium Potassium Chloride Ca (more content not included)... Normal [facility] L501.4020on 05-02-2021 TROPONIN-I HS < 3.0 Low 3.0-53.7 [facility] Comment on above: Order Comment: 1 Result Comment: Roxie dinh Note: New Test Units and Gender Specific Reference Ranges. For more information see Policy Stat Procedure [place] High Sensitivity Troponin (TNIH) and attachments. Performed By: #### L 700.6800, L300.8000, L501.9520, L500.2500, L100.0100, L501.4020 ####[facility] [address] [place], [place], [id number] ,Serum,hCG Quali.on 05-02-2021 HCG, SERUM QUAL Negative Normal [facility] Comment on above: Performed By: #### L 700.6800, L300.8000, L501.9520, L500.2500, L100.0100, L501.4020 ####[facility] [address] [place], [place], [id number] Thyroid Stim Hormone (TSH)on 05-02-2021 TSH 2.04 uIU/mL Normal 0.358-3.74 [facility] Comment on above: Order Comment: 1 Performed By: #### L 700.6800, L300.8000, L501.9520, L500.2500, L100.0100, L501.4020 ####[facility] [address] [place], [place], [id number] Ferritinon 04-25-2021 Ferritin [Mass/Vol] 16 ng/mL Normal 10-291 [facility] Comment on above: Order Comment: With differential. Release to patient->Automatic Is this specimen being sent to an external lab?->No 69443&Blood^\S\^Vein&Vein TIBC will not be run. Release to patient->Automatic Is this specimen being sent to an external lab?->No 90932&Blood^\S\^Vein&Vein TIBC will be run. Release to patient->Automatic Is this specimen being sent to an external lab?->No 94687&Blood^\S\^Vein&Vein Performed By: #### F ERTN #### [address] [address] TSH with reflex T4FRon 04-25 TSH with reflex T4FR 0.867 uIU/mL Normal 0.350-5.500 [facility] Comment on above: Order Comment: With differential. Release to patient->Automatic Is this specimen being sent to an external lab?->No 76075&Blood^\S\^Vein&Vein TIBC will not be run. Release to patient->Automatic Is this specimen being sent to an external lab?->No 88318&Blood^\S\^Vein&Vein TIBC will be run. Release to patient->Automatic Is this specimen being sent to an external lab?->No 31099&Blood^\S\^Vein&Vein Performed By: #### T SHR #### [place] [address] Basic Metabolic Panelon 04-11 Calcium [Mass/Vol] 9.5 mg/dL Normal 7.6-11.0 [facility] Comment on above: Order Comment: With differential. Release to patient->Automatic Is this specimen being sent to an external lab?->No 77751&Blood^\S\^Vein&Vein TIBC will not be run. Release to patient->Automatic Is this specimen being sent to an external lab?->No 32554&Blood^\S\^Vein&Vein TIBC will be run. Release to patient->Automatic Is this specimen being sent to an external lab?->No 66144&Blood^\S\^Vein&Vein Performed By: #### B MP #### [place] [address] Chloride [Moles/Vol] 104 mmol/L Normal 96-108 [facility] Comment on above: Order Comment: With differential. Release to patient->Automatic Is this specimen being sent to an external lab?->No 51592&Blood^\S\^Vein&Vein TIBC will not be run. Release to patient->Automatic Is this specimen being sent to an external lab?->No 27444&Blood^\S\^Vein&Vein TIBC will be run. Release to patient->Automatic Is this specimen being sent to an external lab?->No 31463&Blood^\S\^Vein&Vein Performed By: #### B MP #### [place] [address] CO2 [Moles/Vol] 26.2 mmol/L Normal 22.0-29.0 [facility] Comment on above: Order Comment: With differential. Release to patient->Automatic Is this specimen being sent to an external lab?->No 65570&Blood^\S\^Vein&Vein TIBC will not be run. Release to patient->Automatic Is this specimen being sent to an external lab?->No 93135&Blood^\S\^Vein&Vein TIBC will be run. Release to patient->Automatic Is this specimen being sent to an external lab?->No 36785&Blood^\S\^Vein&Vein Performed By: #### B MP #### [place] [address] Creatinine [Mass/Vol] 0.69 mg/dL Normal 0.50-1.00 [facility] Comment on above: Order Comment: With differential. Release to patient->Automatic Is this specimen being sent to an external lab?->No 02792&Blood^\S\^Vein&Vein TIBC will not be run. Release to patient->Automatic Is this specimen being sent to an external lab?->No 13531&Blood^\S\^Vein&Vein TIBC will be run. Release to patient->Automatic Is this specimen being sent to an external lab?->No 64713&Blood^\S\^Vein&Vein Result Comment: Premature 0.3-1.0 mg/dL Performed By: #### B MP #### [place] [address] Glucose [Mass/Vol] 83 mg/dL Normal 70-99 [facility] Comment on above: Order Comment: With differential. Release to patient->Automatic Is this specimen being sent to an external lab?->No 01428&Blood^\S\^Vein&Vein TIBC will not be run. Release to patient->Automatic Is this specimen being sent to an external lab?->No 75492&Blood^\S\^Vein&Vein TIBC will be run. Release to patient->Automatic Is this specimen being sent to an external lab?->[place] 78241&Blood^\S\^Vein&Vein Result Comment: Criteria for Diagnosis of Diabetes(Effective 03/17/11): Fasting specimen (no caloric intake for at least 8 hours). <100 mg/dl Normal 100-125 mg/dl Increased Risk for Diabetes >125 mg/dl Diagnostic for Diabetes Random Glucose (any time of day without regard to last meal). >=200 mg/dl plus Classic Symptoms of Diabetes Performed By: #### B MP #### [place] [address] Potassium [Moles/Vol] 4.4 mmol/L Normal 3.3-5.1 [facility] Comment on above: Order Comment: With differential. Release to patient->Automatic Is this specimen being sent to an external lab?->[place] 45096&Blood^\S\^Vein&Vein TIBC will not be run. Release to patient->Automatic Is this specimen being sent to an external lab?->No 06596&Blood^\S\^Vein&Vein TIBC will be run. Release to patient->Automatic Is this specimen being sent to an external lab?->No 40606&Blood^\S\^Vein&Vein Performed By: #### B MP #### [place] [address] Sodium [Moles/Vol] 139 mmol/L Normal 133-145 [facility] Comment on above: Order Comment: With differential. Release to patient->Automatic Is this specimen being sent to an external lab?->No 53538&Blood^\S\^Vein&Vein TIBC will not be run. Release to patient->Automatic Is this specimen being sent to an external lab?->No 33718&Blood^\S\^Vein&Vein TIBC will be run. Release to patient->Automatic Is this specimen being sent to an external lab?->No 32173&Blood^\S\^Vein&Vein Performed By: #### B MP #### [place] [address] Urea nitrogen [Mass/Vol] 9 mg/dL Normal 4-19 [facility] Comment on above: Order Comment: With differential. Release to patient->Automatic Is this specimen being sent to an external lab?->No 99195&Blood^\S\^Vein&Vein TIBC will not be run. Release to patient->Automatic Is this specimen being sent to an external lab?->No 75963&Blood^\S\^Vein&Vein TIBC will be run. Release to patient->Automatic Is this specimen being sent to an external lab?->No 68951&Blood^\S\^Vein&Vein Performed By: #### B MP #### [place] [address] Complete Blood Counton 04-24 Differential Complete Automated Normal [facility] Comment on above: Order Comment: With differential. Release to patient->Automatic Is this specimen being sent to an external lab?->No 23259&Blood^\S\^Vein&Vein TIBC will not be run. Release to patient->Automatic Is this specimen being sent to an external lab?->No 23523&Blood^\S\^Vein&Vein TIBC will be run. Release to patient->Automatic Is this specimen being sent to an external lab?->No 73555&Blood^\S\^Vein&Vein Performed By: #### C BC #### [place] [address] Basophils/100 WBC (Bld) 0.90 % Normal 0.00-1.00 [facility] Comment on above: Order Comment: With differential. Release to patient->Automatic Is this specimen being sent to an external lab?->No 37481&Blood^\S\^Vein&Vein TIBC will not be run. Release to patient->Automatic Is this specimen being sent to an external lab?->No 95915&Blood^\S\^Vein&Vein TIBC will be run. Release to patient->Automatic Is this specimen being sent to an external lab?->No 27919&Blood^\S\^Vein&Vein Performed By: #### C BC #### [place] [address] Eosinophils/100 WBC (Bld) 1.00 % Normal 0.00-3.00 [facility] Comment on above: Order Comment: With differential. Release to patient->Automatic Is this specimen being sent to an external lab?->No 00755&Blood^\S\^Vein&Vein TIBC will not be run. Release to patient->Automatic Is this specimen being sent to an external lab?->No 36097&Blood^\S\^Vein&Vein TIBC will be run. Release to patient->Automatic Is this specimen being sent to an external lab?->No 18635&Blood^\S\^Vein&Vein Performed By: #### C BC #### [place] [address] Erythrocyte distribution width (RBC) [Ratio] 12.5 % Normal 0.0-14.4 [facility] Comment on above: Order Comment: With differential. Release to patient->Automatic Is this specimen being sent to an external lab?->No 99090&Blood^\S\^Vein&Vein TIBC will not be run. Release to patient->Automatic Is this specimen being sent to an external lab?->No 85407&Blood^\S\^Vein&Vein TIBC will be run. Release to patient->Automatic Is this specimen being sent to an external [place]?->[place] 60257&Blood^\S\^Vein&Vein Performed By: #### C BC #### [place] [address] Hematocrit (Bld) [Volume fraction] 39.2 % Normal 36.0-44.0 [facility] Comment on above: Order Comment: With differential. Release to patient->Automatic Is this specimen being sent to an external lab?->No 49457&Blood^\S\^Vein&Vein TIBC will not be run. Release to patient->Automatic Is this specimen being sent to an external lab?->No 18056&Blood^\S\^Vein&Vein TIBC will be run. Release to patient->Automatic Is this specimen being sent to an external lab?->No 80829&Blood^\S\^Vein&Vein Performed By: #### C BC #### [place] [address] Hemoglobin (Bld) [Mass/Vol] 12.8 g/dL Normal 12.0-15.0 [facility] Comment on above: Order Comment: With differential. Release to patient->Automatic Is this specimen being sent to an external lab?->No 59225&Blood^\S\^Vein&Vein TIBC will not be run. Release to patient->Automatic Is this specimen being sent to an external lab?->No 38782&Blood^\S\^Vein&Vein TIBC will be run. Release to patient->Automatic Is this specimen being sent to an external lab?->No 35143&Blood^\S\^Vein&Vein Performed By: #### C BC #### [place] [address] Immature granulocytes/100 WBC (Bld) 0.10 % Normal [facility] Comment on above: Order Comment: With differential. Release to patient->Automatic Is this specimen being sent to an external lab?->No 26027&Blood^\S\^Vein&Vein TIBC will not be run. Release to patient->Automatic Is this specimen being sent to an external lab?->No 70595&Blood^\S\^Vein&Vein TIBC will be run. Release to patient->Automatic Is this specimen being sent to an external [place]?->[place] 83327&Blood^\S\^Vein&Vein Result Comment: Kamryn ture Granulocyte Percent includes promyelocytes, myelocytes, and metamyelocytes. IG% > 1.0 indicates a left shift is present. With automated differentials, bands are included in the neutrophil count and not in the Immature Granulocyte Percent. Performed By: #### C BC #### [place] [address] Lymphocytes/100 WBC (Bld) 30.5 % Normal 24.0-44.0 [facility] Comment on above: Order Comment: With differential. Release to patient->Automatic Is this specimen being sent to an external lab?->No 86783&Blood^\S\^Vein&Vein TIBC will not be run. Release to patient->Automatic Is this specimen being sent to an external lab?->[place] 90059&Blood^\S\^Vein&Vein TIBC will be run. Release to patient->Automatic Is this specimen being sent to an external lab?->No 07823&Blood^\S\^Vein&Vein Performed By: #### C BC #### [place] [id number] MCH (RBC) [Entitic mass] 28.1 pg Normal 26.0-34.0 [facility] Comment on above: Order Comment: With differential. Release to patient->Automatic Is this specimen being sent to an external lab?->No 85174&Blood^\S\^Vein&Vein TIBC will not be run. Release to patient->Automatic Is this specimen being sent to an external lab?->No 43170&Blood^\S\^Vein&Vein TIBC will be run. Release to patient->Automatic Is this specimen being sent to an external lab?->No 52474&Blood^\S\^Vein&Vein Performed By: #### C BC #### [place] [address] MCHC 32.7 % Normal 31.0-37.0 [facility] Comment on above: Order Comment: With differential. Release to patient->Automatic Is this specimen being sent to an external lab?->No 20843&Blood^\S\^Vein&Vein TIBC will not be run. Release to patient->Automatic Is this specimen being sent to an external lab?->No 70822&Blood^\S\^Vein&Vein TIBC will be run. Release to patient->Automatic Is this specimen being sent to an external lab?->No 04464&Blood^\S\^Vein&Vein Performed By: #### C BC #### [address] [id number] MCV (RBC) [Entitic vol] 86.0 fL Normal 80.0-100.0 [facility] Comment on above: Order Comment: With differential. Release to patient->Automatic Is this specimen being sent to an external lab?->No 19486&Blood^\S\^Vein&Vein TIBC will not be run. Release to patient->Automatic Is this specimen being sent to an external lab?->No 88475&Blood^\S\^Vein&Vein TIBC will be run. Release to patient->Automatic Is this specimen being sent to an external lab?->No 18568&Blood^\S\^Vein&Vein Performed By: #### C BC #### [place] [address] Monocytes/100 WBC (Bld) 7.10 % High 3.00-6.00 [facility] Comment on above: Order Comment: With differential. Release to patient->Automatic Is this specimen being sent to an external lab?->No 92082&Blood^\S\^Vein&Vein TIBC will not be run. Release to patient->Automatic Is this specimen being sent to an external lab?->No 78744&Blood^\S\^Vein&Vein TIBC will be run. Release to patient->Automatic Is this specimen being sent to an external lab?->No 50693&Blood^\S\^Vein&Vein Performed By: #### C BC #### [place] [address] Neutrophils (Bld) [#/Vol] 4.3 10*3/uL Normal 2.0-7.2 [facility] Comment on above: Order Comment: With differential. Release to patient->Automatic Is this specimen being sent to an external lab?->No 14422&Blood^\S\^Vein&Vein TIBC will not be run. Release to patient->Automatic Is this specimen being sent to an external lab?->No 76807&Blood^\S\^Vein&Vein TIBC will be run. Release to patient->Automatic Is this specimen being sent to an external lab?->No 18984&Blood^\S\^Vein&Vein Performed By: #### C BC #### [place] [address] Neutrophils/100 WBC (Bld) 60.4 % Normal 35.0-66.0 [facility] Comment on above: Order Comment: With differential. Release to patient->Automatic Is this specimen being sent to an external lab?->No 26034&Blood^\S\^Vein&Vein TIBC will not be run. Release to patient->Automatic Is this specimen being sent to an external lab?->No 53101&Blood^\S\^Vein&Vein TIBC will be run. Release to patient->Automatic Is this specimen being sent to an external lab?->No 35789&Blood^\S\^Vein&Vein Performed By: #### C BC #### [facility] [address] [place] [id number] Nucleated RBC/100 WBC (Bld) [Ratio] 0.0 % Normal -1.0-0.0 [facility] Comment on above: Order Comment: With differential. Release to patient->Automatic Is this specimen being sent to an external lab?->[place] 98006&Blood^\S\^Vein&Vein TIBC will not be run. Release to patient->Automatic Is this specimen being sent to an external lab?->No 50683&Blood^\S\^Vein&Vein TIBC will be run. Release to patient->Automatic Is this specimen being sent to an external lab?->No 34787&Blood^\S\^Vein&Vein Performed By: #### C BC #### [place] [id number] Platelet mean volume (Bld) [Entitic vol] 12.4 fL Normal [facility] Comment on above: Order Comment: With differential. Release to patient->Automatic Is this specimen being sent to an external lab?->No 56564&Blood^\S\^Vein&Vein TIBC will not be run. Release to patient->Automatic Is this specimen being sent [place] an [place]?->[place] [address]48&Blood^\S\^Vein&Vein TIBC will be run. Release to patient->Automatic Is this specimen being sent to an external lab?->No 77537&Blood^\S\^Vein&Vein Result Comment: MPV is platelet range and age dependent Performed By: #### C BC #### [place] [address] Platelets (Bld) [#/Vol] 261 10*3/uL Normal 150-450 [facility] Comment on above: Order Comment: With differential. Release to patient->Automatic Is this specimen being sent to an external lab?->No 72311&Blood^\S\^Vein&Vein TIBC will not be run. Release to patient->Automatic Is this specimen being sent to an external lab?->No 32623&Blood^\S\^Vein&Vein TIBC will be run. Release to patient->Automatic Is this specimen being sent to an external lab?->No 15745&Blood^\S\^Vein&Vein Performed By: #### C BC #### [place] [address] RBC 4.56 10E12/L Normal 4.00-4.90 [facility] Comment on above: Order Comment: With differential. Release to patient->Automatic Is this specimen being sent to an external lab?->No 21746&Blood^\S\^Vein&Vein TIBC will not be run. Release to patient->Automatic Is this specimen being sent to an external lab?->[place] 33008&Blood^\S\^Vein&Vein TIBC will be run. Release to patient->Automatic Is this specimen being sent to an external lab?->No 98918&Blood^\S\^Vein&Vein Performed By: #### C BC #### [place] [address] WBC (Bld) [#/Vol] 7.0 10*3/uL Normal 4.5-11.0 [facility] Comment on above: Order Comment: With differential. Release to patient->Automatic Is this specimen being sent to an external lab?->No [id number]&Blood^\S\^Vein&Vein TIBC will not be run. Release to patient->Automatic Is this specimen being sent to an external lab?->No [id number]&Blood^\S\^Vein&Vein TIBC will be run. Release to patient->Automatic Is this specimen being sent to an external lab?->No [id number]&Blood^\S\^Vein&Vein Performed By: #### C BC #### [place] [address] Ironon 04-24-2021 %Saturation 32 % Normal 13-59 [facility] Comment on above: Order Comment: With differential. Release to patient->Automatic Is this specimen being sent to an external lab?->No [id number]&Blood^\S\^Vein&Vein TIBC will not be run. Release to patient->Automatic Is this specimen being sent to an external lab?->No [id number]&Blood^\S\^Vein&Vein TIBC will be run. Release to patient->Automatic Is this specimen being sent to an external lab?->No [id number]&Blood^\S\^Vein&Vein Performed By: #### I ALLI #### [place] [address] Iron [Mass/Vol] 143 ug/dL Normal 30-160 [facility] Comment on above: Order Comment: With differential. Release to patient->Automatic Is this specimen being sent to an external lab?->No [id number]&Blood^\S\^Vein&Vein TIBC will not be run. Release to patient->Automatic Is this specimen being sent to an external lab?->No [id number]&Blood^\S\^Vein&Vein TIBC will be run. Release to patient->Automatic Is this specimen being sent to an external lab?->No [id number]&Blood^\S\^Vein&Vein Performed By: #### I ALLI #### [address] [address] TIBC 444 ug/dl High 228-428 [facility] Comment on above: Order Comment: With differential. Release to patient->Automatic Is this specimen being sent to an external lab?->No [id number]&Blood^\S\^Vein&Vein TIBC will not be run. Release to patient->Automatic Is this specimen being sent to an external lab?->No [id number]&Blood^\S\^Vein&Vein TIBC will be run. Release to patient->Automatic Is this specimen being sent to an external lab?->No 12941&Blood^\S\^Vein&Vein Performed By: #### I ALLI #### [facility] [address] [place] [id number] Progress Noteon 04-24-2021 [employer] Spreader Authentication Interface Message Text Patient ID: Mallika Espino is a 21 y.o. female. Her chief complaint(s) include: Dizziness (Mostly upon standing, movement, nauseous when happens, headache, tingling, numbness.) Assessment 1. Syncope, unspecified syncope type 2. Need for vaccination 3. Menorrhagia with regular cycle Plan Mallika was seen today for dizziness. Diagnoses and all orders for this visit: Syncope, unspecified syncope type - Complete Blood Count with Diff (Clinic Collect) - Ferritin (Clinic Collect) - Iron & TIBC (Clinic Collect) - TSH with Reflex to T4, Free (Clinic Collect) - Reticulocyte Count, Automated (Clinic Collect) - Basic Metabolic Panel (Clinic Collect) - AMB Referral To Cardiology; Future Need for vaccination - Cancel: Meningococcal B (BEXSERO) - Cancel: HPV (Gardasil 9) Menorrhagia with regular cycle Return for Well Visit and as needed. Will order labwork and f/u based on lab results. Concern for heavy bleeding, recommended scheduling follow up appt to discuss heavy bleeding with periods. Advised to call and schedule appt with cardiology. Vital signs significant for orthostatic hypotension. Recommended increasing water intake to 80-100 oz per day and to avoid caffeine. Recommended healthy, salty snacks with goal of 3-5 gms of sodium per day. Advised to change positions slowly. Advised to present to ED with chest pain, worst RUSSELL of life, or worsen symptoms. Pt voiced understanding. Advised not to drive today, pt's father picked her up from appt. Subjective HPI Comments: Yesterday at work at 8:30pm got really dizzy, felt like entire body was tingling, francesca in face, nurse at work checked blood sugar and everything was fine (pt unsure of value), took BP and was 80 over something, felt like room was spinning and felt like she was being pulled down. 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 Denies position change, unsure if knees were locked. Occasional dizziness with position changes. + Nauseated during episode. States hearing became like ringing and vision was blurred for a few seconds, would zoom in a out. Pt denies chest pain, states last night felt like a lot of weight on her chest during the episode, denies palpitations or SOB. That was the only time pt ever felt like that. Has not had the tingling sensation before. I get nausous and dizzy with migraines but nothing like that. Has had a RUSSELL x 1 week, /10 RUSSELL, has not tried anything this week. Previously on iron, no longer taking. Currently on period, started 2 days ago. Has to change pad/tampon every hour first couple of days (past 2 days), denies any clots. Yesterday before work: 2 pm- got pizza and water (16oz), sips throughout the day, 4 pm- drank energy drink, Monster that lasted until about 8pm. 6 pm got crackers and water. Never finished another water bottle so less than 32 oz of water yesterday. She is unaccompanied. Dizziness This problem is recurrent. The patient's symptoms have included no fever, no congestion, no rhinorrhea, no sneezing, no sore throat, no cough, no diarrhea and no vomiting. The symptoms are aggravated by standing. Review of Systems Neurological: Positive for dizziness. Objective Vital Signs 04/24/21 1556 04/24/21 1600 BP: 102/54 (!) 88/54 Pulse: 56 58 There is no height or weight on file to calculate BMI. Physical Exam Constitutional: She appears well. She is active. No distress. HENT: Head: Atraumatic. Ears: Right Ear: Tympanic membrane normal. Left Ear: Tympanic membrane normal. Mouth/Throat: Mucous membranes are moist. No pharynx erythema. Eyes: Conjunctivae and EOM are normal. Red reflex is present bilaterally. No strabismus. Pupils are equal, round, and reactive to light. Right eye exhibits normal extraocular motion and no nystagmus. Left eye exhibits normal extraocular motion and no nystagmus. Neck: Neck supple. Cardiovascular: Normal rate and regular rhythm. Heart murmur not heard. Pulmonary/Chest: Breath sounds normal. There is normal air entry. Musculoskeletal: Cervical back: Normal range of motion and neck supple. Neurological: No focal deficit present. She is alert. Mental status is at baseline. She has normal motor skills, normal reflexes and intact cranial nerves. She has a normal Isyxay-Ohay-Chcldf Test, unimpaired heel to puckett and unimpaired rapid alternating movements. She displays a positive Romberg sign. Gait normal. Coordination normal. Reflex Scores: Patellar reflexes are 2+ on the right side and 2+ on the left side. Skin: She is not diaphoretic. Vitals reviewed: Blood pressure (!) 88/54, pulse 58, last menstrual period 04/24/2021. Normal [facility] Reticulocyte Count Automated on 04-24-2021 RET-HE 32.5 pg Normal 30.6-40.7 [facility] Comment on above: Order Comment: With differential. Release to patient->Automatic Is this specimen being sent to an external lab?->No [id number]&Blood^\S\^Vein&Vein TIBC will not be run. Release to patient->Automatic Is this specimen being sent to an external lab?->No 12090&Blood^\S\^Vein&Vein TIBC will be run. Release to patient->Automatic Is this specimen being sent to an external lab?->No [id number]&Blood^\S\^Vein&Vein Performed By: #### R TCA #### [place] [address] Reticulocyte Automated 1.1 % Normal 0.5-2.0 [facility] Comment on above: Order Comment: With differential. Release to patient->Automatic Is this specimen being sent to an external lab?->No [id number]&Blood^\S\^Vein&Vein TIBC will not be run. Release to patient->Automatic Is this specimen being sent to an external lab?->No 13093&Blood^\S\^Vein&Vein TIBC will be run. Release to patient->Automatic Is this specimen being sent to an external lab?->No 23959&Blood^\S\^Vein&Vein Performed By: #### R TCA #### [facility] [address] [address] Emergency Department Summary on 04-06-2021 Emergency Department Summary [facility] Medical Records Department [address] [place] [address] Emergency Department Summary 04/05/21 MR#: [id number] Acct: [id number] Name: MALLIKA ESPINO Rep #: [id number] : 2000 21 From: Gold Springer DO PCP: Dr. Rubia Souza MD Status:REG ER Location: ED HPI History of Present Illness Chief Complaint: Anxiety Narrative Narrative: 21-year-old female presenting with anxiety. She states she has a long history of anxiety. She states she has not bipolar. She decided she would stop taking her medications 3 years ago and has intermittent episodes of anxiety. Currently she thinks that she is anxious because she has a new job. She denies chest pain or shortness of breath. She denies fever or chills. She states she is otherwise eating and drinking normally. She does have some difficulty sleeping but is getting sleep. She states that she does have a history of insomnia in the past. She has not seen her primary care provider or psychiatric professional in years. [facility] Medical History Anxiety Asthma Migraines Home Medications hydroxyzine pamoate [Vistaril] 25 mg PO TID PRN #30 cap 04/05/21 [Rx Last Taken Unknown] Allergy/AdvReac Type Severity Reaction Status Date / Time escitalopram [From Lexapro] Allergy Rash Verified 04/05/21 20:56 Social History Smoking Status: Never smoker ROS ROS ED Constitutional Constitutional ED: Denies chills or fever(s) Eyes Eyes: Denies blurry vision or change in vision ENT ENT ED: Denies ear pain or rhinorrhea Cardiovascular Cardiovascular: Denies chest pain or palpitations Respiratory/Chest Respiratory/Chest: Denies cough or dyspnea Gastrointestinal Gastrointestinal: Denies abdominal pain, nausea or vomiting Genitourinary Genitourinary ED: Denies dysuria or hematuria Musculoskeletal Musculoskeletal: Denies arthralgias or myalgias Neurologic Neurologic: Denies headache(s) or weakness Psychiatric Psychiatric: Reports anxiety; Denies suicidal ideation or suicidal thoughts EXAM Physical Exam Const Vital Signs: 04/05/21 20:57 Temperature 97.6 F L Temperature Source Temporal Pulse Rate 71 Respiratory Rate 16 Blood Pressure 141/87 H Blood Pressure Mean 105 Pulse Ox 100 Oxygen Delivery Method Room Air Positive well nourished General Appearance ED: NAD HEENT Reports moist mucous membranes Negative for trauma Eyes PERRL and EOMs intact bilaterally Resp normal respiratory effort and clear to auscultation bilaterally Cardio regular rate, regular rhythm and no murmurs GI normal to inspection, nondistended, normoactive bowel sounds Neuro oriented x3 and CN's II-XII intact bilaterally Sensorium / Orientation: alert Psych mental status grossly normal Mood Affect: anxious Skin no rashes or lesions noted and no wounds MDM MDM MDM Narrative Medical decision making narrative: Patient presenting with anxiety. She has a history of this. She thinks that the stress from her new job is causing it. She is not on any medication because she took her self off of it. From her story she does not sound manic. She has not suicidal or homicidal. Patient was given Ativan and felt improved. I will give her hydroxyzine for home until she can follow-up with Dr. Souza. Patient stable at this time. Impression: 1. Anxiety Discharge Plan Triage Chief Complaint: Anxiety ED Provider: Gold Springer Dx/Rx/DC Orders Instructions: ED Anxiety Reaction Prescriptions: New hydroxyzine pamoate [Vistaril] 25 mg capsule 25 mg PO TID PRN (Reason: anxiety) Qty: 30 RF: 0 Primary Care Provider: Rubia Souza Referrals: Rubia Souza MD [Primary Care Provider] - Disposition Disposition: Home, Self Care What to do if you have Problems For any increased pain, shortness of breath, bleeding, nausea or vomiting, chest pain, or any unexpected problems, contact your Primary Care Provider. Call [facility] ([phone]) or report to the closest Emergency Room. Call 911 if necessary. 04/05/21 9395 Cosigner Signature (if applicable): CC: Dr. Rubia Souza MD Signed [facility] ECG COMPLETEon 05-27-2019 ECG COMPLETE NAME : JUAN ESPINO PID : [id number] : 2000 Gender : Female Race : ORD : [id number] Procedure Date : May 27 2019 03:19:54 Edit Date : May 28 2019 18:04:56 Diagnosis:NORMAL SINUS RHYTHM NORMAL ECG NO PREVIOUS ECGS AVAILABLE Confirmed by MD CAMPOVERDE VINAYAK ([id number]) on 05/28/2019 6:04:51 PM Ventricular Rate : 62 BPM Atrial Rate : 62 BPM P-R Interval : 134 ms QRS Duration : 70 ms Q-T Interval : 364 ms QTC Calculation(Bazett) : 369 ms P [place] : 52 degrees R [place] : 53 degrees T [place] : 19 degrees Test Reason : Chest Pain Location : 150 : [place] 10 Overread By : MD CAMPOVERDE VINAYAK Edited By : MD CAMPOVERDE VINAYAK Referred By : , Acquired by : Venu Merchant [facility] Vital Signs Date Time Vital Sign Value Performing Clinician Faci lity 11-06-2024 11:30-0500 Body temperature 99.19 [degF] Delia Moomaw WORD PROCESSING OPERATOR.CAREER PLACEMENT SPECIALIST Work Phone: [facility] 11-06-2024 11:30-0500 Body weight 73.2 kg Delia Moomaw WORD PROCESSING OPERATOR.CAREER PLACEMENT SPECIALIST Work Phone: [facility] 11-06-2024 11:30-0500 Diastolic blood pressure 68 mm[Hg] Delia Moomaw WORD PROCESSING OPERATOR.CAREER PLACEMENT SPECIALIST Work Phone: [facility] 11-06-2024 11:30-0500 Heart rate 100 /min Delia Moomaw WORD PROCESSING OPERATOR.CAREER PLACEMENT SPECIALIST Work Phone: [facility] 11-06-2024 11:30-0500 Respiratory rate 18 /min Delia Moomaw WORD PROCESSING OPERATOR.CAREER PLACEMENT SPECIALIST Work Phone: [facility] 11-06-2024 11:30-0500 SaO2% (BldA) [Mass fraction] 99 % Delia Moomaw WORD PROCESSING OPERATOR.CAREER PLACEMENT SPECIALIST Work Phone: [facility] 11-06-2024 11:30-0500 Systolic blood pressure 110 mm[Hg] Delia Moomaw WORD PROCESSING OPERATOR.CAREER PLACEMENT SPECIALIST Work Phone: [facility] 01-01-2024 14:53-0400 Body temperature 97 [degF] Yamilka Tom WORD PROCESSING OPERATOR.CAREER PLACEMENT SPECIALIST Work Phone: [facility] 01-01-2024 14:53-0400 Body weight 74.1 kg Yamilka Tom WORD PROCESSING OPERATOR.CAREER PLACEMENT SPECIALIST Work Phone: [facility] 01-01-2024 14:53-0400 Diastolic blood pressure 71 mm[Hg] Yamilka Tom WORD PROCESSING OPERATOR.CAREER PLACEMENT SPECIALIST Work Phone: [facility] 01-01-2024 14:53-0400 Heart rate 67 /min Yamilka Tom WORD PROCESSING OPERATOR.CAREER PLACEMENT SPECIALIST Work Phone: [facility] 01-01-2024 14:53-0400 Respiratory rate 26 /min Yamilka Tom WORD PROCESSING OPERATOR.CAREER PLACEMENT SPECIALIST Work Phone: [facility] 01-01-2024 14:53-0400 SaO2% (BldA) [Mass fraction] 98 % Yamilka Tom WORD PROCESSING OPERATOR.CAREER PLACEMENT SPECIALIST Work Phone: [facility] 01-01-2024 14:53-0400 Systolic blood pressure 120 mm[Hg] Yamilka Tom WORD PROCESSING OPERATOR.CAREER PLACEMENT SPECIALIST Work Phone: [facility] 12-29-2023 10:22-0400 Body temperature 97.59 [degF] Troy Athy PA-C Work Phone: [facility] 12-29-2023 10:22-0400 Body weight 74 kg Troy Athy PA-C Work Phone: [facility] 12-29-2023 10:22-0400 Diastolic blood pressure 76 mm[Hg] Troy Athy PA-C Work Phone: [facility] 12-29-2023 10:22-0400 Heart rate 89 /min Troy Athy PA-C Work Phone: [facility] 12-29-2023 10:22-0400 Respiratory rate 18 /min Troy Athy PA-C Work Phone: [facility] 12-29-2023 10:22-0400 SaO2% (BldA) [Mass fraction] 100 % Troy Athy PA-C Work Phone: [facility] 12-29-2023 10:22-0400 Systolic blood pressure 112 mm[Hg] Troy Santizo PA-C Work Phone: [facility] Encounters Encounter Date Encounter Type Care Provider Facility Start: 11-06-2024 End: 11-06-2024 [facility] Facility:[facility] Start: 11-06-2024 End: 11-06-2024 Patient encounter procedure Delia Alvaradow WORD PROCESSING OPERATOR.CAREER PLACEMENT SPECIALIST Work Phone: [facility] Comment on above: Lower respiratory in fection (Primary Dx) Start: 06-07-2024 ambulatory KATELYNN CAMPO Facility:[facility] Start: 05-24-2024 Telephone encounter Katelynn Dias y WORD PROCESSING OPERATOR.CAREER PLACEMENT SPECIALIST Work Phone: OB/Gynecology Comment on above: Results Start: 05-23-2024 End: 05-23-2024 ambulatory KATELYNN GUILLE Facility:[facility] Start: 05-23-2024 End: 05-23-2024 Patient encounter procedure Katelynn Campo WORD PROCESSING OPERATOR.CAREER PLACEMENT SPECIALIST Work Phone: OB/Gynecology Comment on above: Abnormal uterine ble eding (Primary Dx); Screening for cervical cancer Start: 01-01-2024 End: 01-01-2024 Subsequent hospital visit by physician [facility] Work Phone: Radiology Comment on above: Acute cough [R05.1] Start: 01-01-2024 End: 01-01-2024 [facility] Facility:[facility] Start: 01-01-2024 End: 01-01-2024 Patient encounter procedure Yamilka Tom WORD PROCESSING OPERATOR.CAREER PLACEMENT SPECIALIST Work Phone: [facility] Comment on above: Acute cough (Primary Dx); Mild intermittent asthma with acute exacerbation Start: 12-29-2023 End: 12-29-2023 [facility] Facility:[facility] Start: 12-29-2023 End: 12-29-2023 Patient encounter procedure Troy Santizo PA-C Work Phone: [facility] Comment on above: Asthma with acute ex acerbation, unspecified asthma severity, unspecified whether persistent (Primary Dx) Procedures Date Procedure Procedure Detail Performing Clinician Start: 01-01-2024 Radiologic exam chest 2 views Yamilka Tom APRN.CNP Work Phone: Start: 05-27-2019 Electrocardiogram Plan of Treatment Date Care Activity Detail Author Start: 05-23-2027 Screening for malign ant neoplasm of cervix Cervical Cancer Screening [facility] Start: 05-23-2025 GC (Gonorrhea) Scree ximena () GC (Gonorrhea) Screening () [facility] Start: 05-23-2025 Screening for Chlamy gabriel trachomatis Chlamydia Screening () [facility] Start: 06-12-2024 Covid-19 Vaccine ( season) Covid-19 Vaccine () [facility] Start: 06-12-2024 Covid-19 Vaccine () Covid-19 Vaccine () [facility] Start: 06-12-2024 Influenza vaccination Influenza Vacc ine (#1) [facility] Start: 06-07-2024 End: 06-07-2024 ambulatory 06/07/2024 8:30 AM EDT Procedure OB/Gynecology [address] [place] [address] Abnormal uterine bleeding [N93.9] OB/Gynecology Comment on above: Abnormal uterine ble eding [N93.9] Start: 05-23-2024 End: 08-22-2024 Choriogonadotropin.beta subunit [Units/volume] in Serum or Plasma [facility] Work Phone: Comment on above: Expected: 05/23/2024 , Expires: 08/22/2024 Start: 05-23-2024 End: 08-22-2024 Hemoglobin A1c in Blood [facility] Comment on above: Expected: 05/23/2024 , Expires: 08/22/2024 Start: 05-23-2024 End: 08-22-2024 Thyrotropin [Units/volume] in Serum or Plasma [facility] Comment on above: Expected: 05/23/2024 , Expires: 08/22/2024 Start: 05-23-2024 End: 05-23-2025 US Pelvis PELVIC US [facility] Anc Imaging Routine Abnormal uterine bleeding Expected: 05/23/2024, Expires: 05/23/2025 [facility] Comment on above: Expected: 05/23/2024 , Expires: 05/23/2025 Start: 10-12-2023 Depression Assessment Depression Ass essment [facility] Start: 07-08-2023 Urine microalbumin profile DTaP,Tdap,Td Vaccine (7 - Td or Tdap) [facility] Start: 06-12-2023 Covid-19 Vaccine () Covid-19 Vaccine () [facility] Start: 06-12-2023 Influenza vaccination Influenza Vacc ine (#1) [facility] Start: 2022 Screening for malign ant neoplasm of cervix [facility] Start: 2019 Annual PCP Team [employer] rocio Disease Visit Annual PCP Team Chronic Disease Visit [facility] Start: 2019 Anxiety Screening Anxiety Screening [facility] Start: 2019 Depression Screening Depression Scre ening [facility] Start: 2019 GC (Gonorrhea) Scree ximena () GC (Gonorrhea) Screening () [facility] Start: 2019 Hepatitis C screening Hepatitis C Sc reening [facility] Start: 2019 HIV screening HIV Screening [facility] Start: 2019 Screening for Chlamy gabriel trachomatis Chlamydia Screening () [facility] Start: 2019 Spirometry Spirometry [facility] Start: 2017 Meningococcal B Vacc ine: Consider Based On Risk (1 of 2 - Patient Seeks Protection) Meningococcal B Vaccine: Consider Based On Risk (1 of 2 - Patient Seeks Protection) [facility] Start: 2016 HPV Vaccine (1 - 3-d ose series) HPV Vaccine (1 - 3-dose series) [facility] Start: 2015 Peds To Adult Transi tion Annual Assessment Peds To Adult Transition Annual Assessment [facility] Start: 2013 Peds To Adult Transi tion Initial Discussion Peds To Adult Transition Initial Discussion [facility] BACTERIAL VAGINOSIS NAAT BACTERI AL VAGINOSIS NAAT Lab Routine Abnormal uterine bleeding 05/23/2024 2:50 PM EDT [facility] DC/TRICHOMONAS NAAT DC /TRICHOMONAS NAAT Lab Routine Abnormal uterine bleeding 05/23/2024 2:50 PM EDT [facility] Chlamydia trachomatis+Neisseria gonorrhoeae DNA [Presence] in Unspecified specimen by SISI with probe detection GONORRHEA/CHLAMYDIA NAAT Lab Routine Abnormal uterine bleeding 05/23/2024 2:50 PM EDT [facility] PAP TEST PAP TEST Lab Rou shaji Abnormal uterine bleeding Screening for cervical cancer 05/23/2024 2:34 PM EDT [facility] Immunizations Immunization Date Immunization Notes Care Provider Fa brock 07-08-2013 influenza virus vacc ine, unspecified formulation Troy Santizo PA-C Work Phone: [facility] Payers Date Payer Category Payer Unknown [employer] PPO OOS [id number] 2023-Present [phone] [address] [place] [address] PPO [id number] 2023 Unknown [id number] Social History Date Type Detail Facility Start: 12-29-2023 Tobacco smoking status NHIS Never sm oked tobacco [facility] Start: 12-29-2023 Tobacco use and exposure Smoke less tobacco non-user [facility] Start: 12-29-2023 End: 11-06-2024 Alcohol intake Lifetime non-drinker (finding) [facility] Start: 05-27-2019 End: 09-18-2020 History of Social function [facility] Start: 05-27-2019 End: 09-18-2020 Alcohol Use Disorder Identification Test - Consumption [AUDIT-C] [facility] How often to you hav e a drink containing alcohol? Never [facility] Average Number of Drinks Not on file [facility] Start: 2001 Sex Assigned At Not on file [facility] Clinical Notes 12-29-2023 to 11-06-2024 Delia Rodriguez APRN.CAREER PLACEMENT SPECIALIST - 11/06/2024 11:34 AM ESTTelephone Encounter - Destiny Bautista RN - 05/24/2024 11:00 AM EDTTelephone Encounter - Destiny Bautista RN - 05/24/2024 11:00 AM EDT Note Date & Type Note Facility 11-06-2024 Note HNO ID: [id number] Author: DELIA RODRIGUEZ APRN.KELLI Service: ? Author Type: Nurse Practitioner Type: Progress Notes Filed: 11/06/2024 11:41 Note Text: This note was created using ActualSunriter. Subjective Mallika Espino is a 24 year old female. HPI For the last 2 -3 weeks pt has had sore throat cough headache occasional vomiting and, sinus congestion. She notes episodic fevers. Review of Systems As above Objective BP 110/68 Pulse 100 Temp 37.3 ?C (99.2 ?F) (Tympanic) Resp 18 Wt 73.2 kg (161 lb 6 oz) LMP 12/29/2023 (Exact Date) SpO2 99% Physical Exam Vitals and nursing note reviewed. Constitutional: General: She is not in acute distress. Appearance: Normal appearance. She is not ill-appearing. HENT: Head: Normocephalic. Mouth/Throat: Mouth: Mucous membranes are moist. Eyes: Conjunctiva/sclera: Conjunctivae normal. Cardiovascular: Rate and Rhythm: Normal rate and regular rhythm. Pulmonary: Effort: Pulmonary effort is normal. Breath sounds: Normal breath sounds. Musculoskeletal: General: Normal range of motion. Cervical back: Normal range of motion. Skin: General: Skin is warm and dry. Neurological: General: No focal deficit present. Mental Status: She is alert. Psychiatric: Mood and Affect: Mood normal. Behavior: Behavior normal. Assessment and Plan ASSESSMENT/PLAN: 1. Lower respiratory infection - ICD9: 519.8, ICD10: J22 With several weeks of slowly worsening symptoms I am concerned for possible pneumonia. Patient started on medications as noted below. We did discuss viral testing which patient declines at this time. She will follow-up with PCP. - BENZONATATE 100 MG CAPSULE - DOXYCYCLINE MONOHYDRATE 100 MG CAPSULE - ALBUTEROL SULFATE HFA 90 MCG/ACTUATION AEROSOL INHALER Delia Rodriguez APRN.KELLI [facility] 11-06-2024 History of Presen t illness Narrative This note was created using ActualSunriter. Subjective Mallika Espino is a 24 year old female. HPI For the last 2 -3 weeks pt has had sore throat cough headache occasional vomiting and, sinus congestion. She notes episodic fevers. Review of Systems As above Objective BP 110/68 Pulse 100 Temp 37.3 C (99.2 F) (Tympanic) Resp 18 Wt 73.2 kg (161 lb 6 oz) LMP 12/29/2023 (Exact Date) SpO2 99% Physical Exam Vitals and nursing note reviewed. Constitutional: General: She is not in acute distress. Appearance: Normal appearance. She is not ill-appearing. HENT: Head: Normocephalic. Mouth/Throat: Mouth: Mucous membranes are moist. Eyes: Conjunctiva/sclera: Conjunctivae normal. Cardiovascular: Rate and Rhythm: Normal rate and regular rhythm. Pulmonary: Effort: Pulmonary effort is normal. Breath sounds: Normal breath sounds. Musculoskeletal: General: Normal range of motion. Cervical back: Normal range of motion. Skin: General: Skin is warm and dry. Neurological: General: No focal deficit present. Mental Status: She is alert. Psychiatric: Mood and Affect: Mood normal. Behavior: Behavior normal. Assessment and Plan ASSESSMENT/PLAN: 1. Lower respiratory infection - ICD9: 519.8, ICD10: J22 With several weeks of slowly worsening symptoms I am concerned for possible pneumonia. Patient started on medications as noted below. We did discuss viral testing which patient declines at this time. She will follow-up with PCP. - BENZONATATE 100 MG CAPSULE - DOXYCYCLINE MONOHYDRATE 100 MG CAPSULE - ALBUTEROL SULFATE HFA 90 MCG/ACTUATION AEROSOL INHALER Delia Rodriguez APRN.KELLI documented in this encounter [facility] 05-24-2024 Telephone encount er Note Patient notified. Voiced understanding. Destiny Bautista RN [facility] 05-24-2024 Miscellaneous Notes Formattin g of this note might be different from the original. Patient notified. Voiced understanding. Destiny Bautista RN Please notify patient: You tested positive for bacterial vaginosis. This is an imbalance of your normal bacteria. Your partner does not need treated. I will send a prescription for Flagyl 500mg by mouth twice a day for 7 days. 1) No alcohol during treatment and for 72 hours after last dose. 2) No intercourse during treatment. 3) Probiotic by mouth once daily for 30 days or as needed. Please let me know if you have any questions. Katelynn Campo APRN.KELLI documented in this encounter [facility] 05-24-2024 Telephone encount er Note Please notify patient: You tested positive for bacterial vaginosis. This is an imbalance of your normal bacteria. Your partner does not need treated. I will send a prescription for Flagyl 500mg by mouth twice a day for 7 days. 1) No alcohol during treatment and for 72 hours after last dose. 2) No intercourse during treatment. 3) Probiotic by mouth once daily for 30 days or as needed. Please let me know if you have any questions. Katelynn Campo APRN.KELLI [facility] 05-23-2024 Note HNO ID: [id number] Author: KATELYNN CAMPO APRN.CNP Service: ? Author Type: Nurse Practitioner Type: Progress Notes Filed: 05/23/2024 14:48 Note Text: Java Enterprise Architect offered: Patient declines. Mallika Espino is a 24 year old female who presents for problem visit Heavy menses for 14 days. HPI: Patient is here for heavy menses, the bleeding started 05/10/2024 and has not stopped bleeding since. She changes out a super sized tampon every 1-2 hours. Experiencing some pain on the right side. Pain scale at a 4 and consistent. She describes it like a sharp throbbing pain. mother had endometriosis. OB History No obstetric history on file. Construction Manager History LMP: 12/29/2023 (Exact Date), Having periods Age at Menarche: Age at First : Age at Menopause: Construction Manager History Comments: Sexual Activity: No sexual activity data on record; No partner data on record Contraception: No contraception data on record PAST MEDICAL HISTORY No date: Psychiatric disorder PAST SURGICAL HISTORY No date: TONSILLECTOMY HX No family history on file. Social History Tobacco Use Smoking status: Never Smokeless tobacco: Never Substance Use Topics Alcohol use: Never Drug use: Never Current Outpatient Medications Medication Sig fluticasone (FLONASE) 50 mcg/actuation nasal spray Use 2 Sprays in each nostril once daily. Rinse mouth after use. albuterol (PROVENTIL) 2.5 mg /3 mL (0.083 %) nebulizer solution Use 3 mL via nebulizer every 4 hours as needed for wheezing/shortness of breath. Use over 5-15minutes. cetirizine (ZYRTEC) 10 mg tablet Take 1 tablet by mouth once daily as needed. albuterol HFA (PROAIR HFA) 90 mcg/actuation inhaler Inhale 2 Puffs as instructed. No current facility-administered medications for this visit. Allergies As of Date: 05/23/2024 Allergen Noted Reaction LEXAPRO [ESCITALOPRAM] 07/20/2020 Rash Fully Assessed 01/01/2024 REVIEW OF SYSTEMS Abdomen: No bloating, early satiety, indigestion, or increased flatulence. No abdominal pain, nausea, vomiting, diarrhea, or constipation. Bladder: No dysuria, gross hematuria, urinary frequency, urinary urgency, or incontinence. Breast: No breast lumps, nipple d/c, overlying skin changes, redness or skin retraction. Expanded ROS: SOFTWARE TESTING SPECIALIST: Positive for abnormal vaginal bleeding Allergies and current medication updated:Yes EXAM: LMP 12/29/2023 GENERAL: pleasant, female in no apparent distress HEENT: Normocephalic, atraumatic, mucus membranes moist, and no lesions CHEST: Normal inspiratory effort PELVIC: external genitalia normal, normal Bartholin's glands, urethra, [place]'s glands, no vulvar lesions, no cervical lesions, good vaginal support, physiologic discharge present, no blood noted, normal appearing perineal body and perianal region BIMANUAL: uterus normal size, shape and consistency, no adnexal masses + mild tenderness to right adnexa with palpation NEURO: alert and oriented x3,exam grossly non-focal EXTREMITIES: normal ASSESSMENT AND PLAN: 1. Abnormal uterine bleeding - ICD9: 626.9, ICD10: N93.9 (primary diagnosis) - One time occurrence - Labs and ultrasound ordered - To go to ER if using pad/tampon hourly, dizziness, chest pain, or shortness of breath - RTO after completed to discuss contraception options as patient would like to start Katelynn Campo APRN.CNP Medical Decision Making: Problems: Low: Acute, uncomplicated illness or injury Data: Unique test(s) ordered: 3+ Risk: Low: Low risk from testing/treatment Medical Decision Making Level: 3 - Low [facility] 05-23-2024 History of Presen t illness Narrative Java Enterprise Architect offered: Patient declines. Mallika Espino is a 24 year old female who presents for problem visit Heavy menses for 14 days. HPI: Patient is here for heavy menses, the bleeding started 05/10/2024 and has not stopped bleeding since. She changes out a super sized tampon every 1-2 hours. Experiencing some pain on the right side. Pain scale at a 4 and consistent. She describes it like a sharp throbbing pain. mother had endometriosis. OB History No obstetric history on file. Construction Manager History LMP: 12/29/2023 (Exact Date), Having periods Age at Menarche: Age at First : Age at Menopause: Construction Manager History Comments: Sexual Activity: No sexual activity data on record; No partner data on record Contraception: No contraception data on record PAST MEDICAL HISTORY No date: Psychiatric disorder PAST SURGICAL HISTORY No date: TONSILLECTOMY HX No family history on file. Social History Tobacco Use Smoking status: Never Smokeless tobacco: Never Substance Use Topics Alcohol use: Never Drug use: Never Current Outpatient Medications Medication Sig fluticasone (FLONASE) 50 mcg/actuation nasal spray Use 2 Sprays in each nostril once daily. Rinse mouth after use. albuterol (PROVENTIL) 2.5 mg /3 mL (0.083 %) nebulizer solution Use 3 mL via nebulizer every 4 hours as needed for wheezing/shortness of breath. Use over 5-15minutes. cetirizine (ZYRTEC) 10 mg tablet Take 1 tablet by mouth once daily as needed. albuterol HFA (PROAIR HFA) 90 mcg/actuation inhaler Inhale 2 Puffs as instructed. No current facility-administered medications for this visit. Allergies As of Date: 05/23/2024 Allergen Noted Reaction LEXAPRO [ESCITALOPRAM] 07/20/2020 Rash Fully Assessed 01/01/2024 REVIEW OF SYSTEMS Abdomen: No bloating, early satiety, indigestion, or increased flatulence. No abdominal pain, nausea, vomiting, diarrhea, or constipation. Bladder: No dysuria, gross hematuria, urinary frequency, urinary urgency, or incontinence. Breast: No breast lumps, nipple d/c, overlying skin changes, redness or skin retraction. Expanded ROS: SOFTWARE TESTING SPECIALIST: Positive for abnormal vaginal bleeding Allergies and current medication updated:Yes EXAM: LMP 12/29/2023 GENERAL: pleasant, female in no apparent distress HEENT: Normocephalic, atraumatic, mucus membranes moist, and no lesions CHEST: Normal inspiratory effort PELVIC: external genitalia normal, normal Bartholin's glands, urethra, [place]'s glands, no vulvar lesions, no cervical lesions, good vaginal support, physiologic discharge present, no blood noted, normal appearing perineal body and perianal region BIMANUAL: uterus normal size, shape and consistency, no adnexal masses + mild tenderness to right adnexa with palpation NEURO: alert and oriented x3,exam grossly non-focal EXTREMITIES: normal ASSESSMENT AND PLAN: 1. Abnormal uterine bleeding - ICD9: 626.9, ICD10: N93.9 (primary diagnosis) - One time occurrence - Labs and ultrasound ordered - To go to ER if using pad/tampon hourly, dizziness, chest pain, or shortness of breath - RTO after completed to discuss contraception options as patient would like to start Katelynn Campo APRN.CNP Medical Decision Making: Problems: Low: Acute, uncomplicated illness or injury Data: Unique test(s) ordered: 3+ Risk: Low: Low risk from testing/treatment Medical Decision Making Level: 3 - Low documented in this encounter [facility] 01-01-2024 Nurse Note 2.5 solution aerosol treatment given per provider's orders. Prior to treatment O2 sat is 98. Treatment completed. O2 sat is 100. Tolerated well. Sapphire Monten[place]ro LPN documented in this encounter [facility] 01-01-2024 Note HNO ID: [id number] Author: YAMILKA TOM APRN.CAREER PLACEMENT SPECIALIST Service: ? Author Type: Nurse Practitioner Type: Progress Notes Filed: 01/01/2024 17:37 Note Text: This note was created using NoteWriter. Subjective Mallika Espino is a 23 year old female. 23 year old female with PMH of asthma on albuterol inhaler PRN presents today with acute onset cough for four days. She was seen in the medical center three days ago where she was diagnosed with acute asthma exacerbation started on oral prednisone and refilled albuterol inhaler. Since then, she is feeling significantly worse. Pertinent positives include shortness of breath, wheezing, productive cough with green sputum, fatigue, body aches, chills, nausea, sore throat, decreased appetite and dizziness although she attributes this to her POTS. Pertinent negatives include vomiting, diarrhea, rhinorrhea, nasal congestion, ear pain, and eye irritation. Symptoms are worse at night. She has been using her albuterol nebulizer q6h and her albuterol inhaler 3 times a day as well as taking the oral prednisone. The history is provided by the patient. Cough This is a new problem. The current episode started more than 2 days ago. The problem occurs constantly. The problem has been rapidly worsening. The cough is Productive of purulent sputum. There has been no fever. Associated symptoms include chills, sore throat, myalgias, shortness of breath and wheezing. Pertinent negatives include no chest pain, no sweats, no ear congestion, no ear pain, no headaches, no rhinorrhea and no eye redness. Treatments tried: oral prednisone, albuterol inhaler and albuterol nebulizer. The treatment provided no relief. She is a smoker (occassionally vapes, has not vaped in 2 weeks). Her past medical history is significant for bronchitis, pneumonia and asthma. PAST MEDICAL HISTORY Diagnosis Date Psychiatric disorder PAST SURGICAL HISTORY Procedure Laterality Date TONSILLECTOMY HX ALLERGIES Lexapro [Escitalopram] MEDICATIONS fluticasone (FLONASE) 50 mcg/actuation nasal spray Use 2 Sprays in each nostril once daily. Rinse mouth after use. predniSONE (DELTASONE) 10 mg tablet Take 4 tabs daily for 3 days, then 2 tabs daily for 3 days, then 1 tab daily for 3 days with food. doxycycline (VIBRA-TABS) 100 mg tablet Take 1 tablet by mouth two times a day for 7 days. predniSONE (DELTASONE) 20 mg tablet Take 2 tablets by mouth once daily for 5 days. albuterol HFA (PROAIR HFA) 90 mcg/actuation inhaler Inhale 2 Puffs as instructed every 6 hours as needed. albuterol (PROVENTIL) 2.5 mg /3 mL (0.083 %) nebulizer solution Use 3 mL via nebulizer every 4 hours as needed for wheezing/shortness of breath. Use over 5-15minutes. albuterol HFA (PROAIR HFA) 90 mcg/actuation inhaler Inhale 2 Puffs as instructed every 4 hours as needed. (Patient not taking: Reported on 12/29/2023) triamcinolone (KENALOG) 0.025 % cream Apply 1 application to affected area twice daily. (Patient not taking: Reported on 02/23/2021 ) topiramate (TOPAMAX ORAL) Take by mouth. (Patient not taking: Reported on 02/23/2021 ) cetirizine (ZYRTEC) 10 mg tablet Take 1 tablet by mouth once daily as needed. (Patient not taking: Reported on 02/23/2021 ) Olopatadine (PATADAY) 0.2 % drop Use 1 Drop in both eyes once daily as needed. (Patient not taking: Reported on 02/23/2021 ) sertraline (ZOLOFT) 50 mg tablet Take 50 mg by mouth once daily. (Patient not taking: Reported on 02/23/2021 ) mupirocin (BACTROBAN) 2 % ointment Apply 1 application to affected area three times daily. Location: left index finger (Patient not taking: Reported on 02/15/2019 ) FLUOXETINE HCL (PROZAC ORAL) Take by mouth. (Patient not taking: Reported on 02/23/2021 ) albuterol HFA (PROAIR HFA) 90 mcg/actuation inhaler Inhale 2 Puffs as instructed. (Patient not taking: Reported on 02/23/2021 ) No family history on file. Social History Tobacco Use Smoking status: Never Smokeless tobacco: Never Substance Use Topics Alcohol use: Never Drug use: Never Review of Systems Constitutional: Positive for activity change, appetite change, chills and fatigue. Negative for fever. HENT: Positive for sore throat. Negative for ear discharge, ear pain and rhinorrhea. Eyes: Negative for pain, discharge, redness and itching. Respiratory: Positive for cough, chest tightness, shortness of breath and wheezing. Cardiovascular: Negative for chest pain. Gastrointestinal: Positive for nausea. Negative for abdominal pain, diarrhea and vomiting. Musculoskeletal: Positive for myalgias. Negative for gait problem. Skin: Negative for color change and rash. Neurological: Positive for dizziness. Negative for light-headedness and headaches. Objective BP 120/71 Pulse 67 Temp 36.1 ?C (97 ?F) Resp 26 Wt 74.1 kg (163 lb 5.8 oz) LMP 12/29/2023 (Exact Date) SpO2 98% Physical Exam Vitals reviewed. Constitutional: General: She i (more content not included)... [facility] 01-01-2024 History of Presen t illness Narrative This note was created using YourTeamOnlineter. Subjective Mallika Espino is a 23 year old female. 23 year old female with PMH of asthma on albuterol inhaler PRN presents today with acute onset cough for four days. She was seen in [facility] three days ago where she was diagnosed with acute asthma exacerbation started on oral prednisone and refilled albuterol inhaler. Since then, she is feeling significantly worse. Pertinent positives include shortness of breath, wheezing, productive cough with green sputum, fatigue, body aches, chills, nausea, sore throat, decreased appetite and dizziness although she attributes this to her POTS. Pertinent negatives include vomiting, diarrhea, rhinorrhea, nasal congestion, ear pain, and eye irritation. Symptoms are worse at night. She has been using her albuterol nebulizer q6h and her albuterol inhaler 3 times a day as well as taking the oral prednisone. The history is provided by the patient. Cough This is a new problem. The current episode started more than 2 days ago. The problem occurs constantly. The problem has been rapidly worsening. The cough is Productive of purulent sputum. There has been no fever. Associated symptoms include chills, sore throat, myalgias, shortness of breath and wheezing. Pertinent negatives include no chest pain, no sweats, no ear congestion, no ear pain, no headaches, no rhinorrhea and no eye redness. Treatments tried: oral prednisone, albuterol inhaler and albuterol nebulizer. The treatment provided no relief. She is a smoker (occassionally vapes, has not vaped in 2 weeks). Her past medical history is significant for bronchitis, pneumonia and asthma. PAST MEDICAL HISTORY Diagnosis Date Psychiatric disorder PAST SURGICAL HISTORY Procedure Laterality Date TONSILLECTOMY HX ALLERGIES Lexapro [Escitalopram] MEDICATIONS fluticasone (FLONASE) 50 mcg/actuation nasal spray Use 2 Sprays in each nostril once daily. Rinse mouth after use. predniSONE (DELTASONE) 10 mg tablet Take 4 tabs daily for 3 days, then 2 tabs daily for 3 days, then 1 tab daily for 3 days with food. doxycycline (VIBRA-TABS) 100 mg tablet Take 1 tablet by mouth two times a day for 7 days. predniSONE (DELTASONE) 20 mg tablet Take 2 tablets by mouth once daily for 5 days. albuterol HFA (PROAIR HFA) 90 mcg/actuation inhaler Inhale 2 Puffs as instructed every 6 hours as needed. albuterol (PROVENTIL) 2.5 mg /3 mL (0.083 %) nebulizer solution Use 3 mL via nebulizer every 4 hours as needed for wheezing/shortness of breath. Use over 5-15minutes. albuterol HFA (PROAIR HFA) 90 mcg/actuation inhaler Inhale 2 Puffs as instructed every 4 hours as needed. (Patient not taking: Reported on 12/29/2023) triamcinolone (KENALOG) 0.025 % cream Apply 1 application to affected area twice daily. (Patient not taking: Reported on 02/23/2021 ) topiramate (TOPAMAX ORAL) Take by mouth. (Patient not taking: Reported on 02/23/2021 ) cetirizine (ZYRTEC) 10 mg tablet Take 1 tablet by mouth once daily as needed. (Patient not taking: Reported on 02/23/2021 ) Olopatadine (PATADAY) 0.2 % drop Use 1 Drop in both eyes once daily as needed. (Patient not taking: Reported on 02/23/2021 ) sertraline (ZOLOFT) 50 mg tablet Take 50 mg by mouth once daily. (Patient not taking: Reported on 02/23/2021 ) mupirocin (BACTROBAN) 2 % ointment Apply 1 application to affected area three times daily. Location: left index finger (Patient not taking: Reported on 02/15/2019 ) FLUOXETINE HCL (PROZAC ORAL) Take by mouth. (Patient not taking: Reported on 02/23/2021 ) albuterol HFA (PROAIR HFA) 90 mcg/actuation inhaler Inhale 2 Puffs as instructed. (Patient not taking: Reported on 02/23/2021 ) No family history on file. Social History Tobacco Use Smoking status: Never Smokeless tobacco: Never Substance Use Topics Alcohol use: Never Drug use: Never Review of Systems Constitutional: Positive for activity change, appetite change, chills and fatigue. Negative for fever. HENT: Positive for sore throat. Negative for ear discharge, ear pain and rhinorrhea. Eyes: Negative for pain, discharge, redness and itching. Respiratory: Positive for cough, chest tightness, shortness of breath and wheezing. Cardiovascular: Negative for chest pain. Gastrointestinal: Positive for nausea. Negative for abdominal pain, diarrhea and vomiting. Musculoskeletal: Positive for myalgias. Negative for gait problem. Skin: Negative for color change and rash. Neurological: Positive for dizziness. Negative for light-headedness and headaches. Objective BP 120/71 Pulse 67 Temp 36.1 C (97 F) Resp 26 Wt 74.1 kg (163 lb 5.8 oz) LMP 12/29/2023 (Exact Date) SpO2 98% Physical Exam Vitals reviewed. Constitutional: General: She is awake. She is not in acute distress. Appearance: Normal appearance. She is normal weight. She is not ill-appearing, toxic-appearing or diaphoretic. HENT: Head: Normocephalic. Right Ear: Ear canal and external ear normal. No decreased hearing noted. No laceration, drainage, swelling or tenderness. There is impacted cerumen. Left Ear: Ear canal and external ear normal. No decreased hearing noted. No laceration, drainage, swelling or tenderness. There is impacted cerumen. Nose: Nose normal. No nasal deformity, septal deviation, signs of injury, laceration, nasal tenderness, mucosal edema, congestion or rhinorrhea. Right Nostril: No foreign body, epistaxis, septal hematoma or occlusion. Left Nostril: No foreign body, epistaxis, septal hematoma or occlusion. Right Turbinates: Swollen. Not enlarged or pale. Left Turbinates: Swollen. Not enlarged or pale. Right Sinus: No maxillary sinus tenderness or frontal sinus tenderness. Left Sinus: No maxillary sinus tenderness or frontal sinus tenderness. Mouth/Throat: Lips: [place]. No lesions. Mouth: Mucous membranes are moist. No injury, lacerations, oral lesions or angioedema. Tongue: No lesions. Palate: No mass and lesions. Pharynx: Oropharynx is clear. Uvula midline. No pharyngeal swelling, oropharyngeal exudate, posterior oropharyngeal erythema or uvula swelling. Tonsils: No tonsillar exudate or tonsillar abscesses. 0 on the right. 0 on the left. Eyes: General: Lids are normal. No allergic shiner, visual field deficit or scleral icterus. Right eye: No foreign body, discharge or hordeolum. Left eye: No foreign body, discharge or hordeolum. Extraocular Movements: Extraocular movements intact. Conjunctiva/sclera: Conjunctivae normal. Right eye: Right conjunctiva is not injected. No chemosis, exudate or hemorrhage. Left eye: Left conjunctiva is not injected. No chemosis, exudate or hemorrhage. Pupils: Pupils are equal, round, and reactive to light. Cardiovascular: Rate and Rhythm: Normal rate and regular rhythm. Heart sounds: Normal heart sounds, S1 normal and S2 normal. Heart sounds not distant. No murmur heard. No friction rub. No gallop. No S3 or S4 sounds. Pulmonary: Effort: Pulmonary effort is normal. No tachypnea, bradypnea, accessory muscle usage, prolonged expiration, respiratory distress or retractions. Breath sounds: No stridor or decreased air movement. Examination of the right-upper field reveals wheezing. Examination of the left-upper field reveals wheezing. Examination of the right-middle field reveals wheezing and rhonchi. Examination of the right-lower field reveals wheezing and rhonchi. Examination of the left-lower field reveals wheezing and rhonchi. Wheezing and rhonchi present. No decreased breath sounds or rales. Chest: Chest wall: No tenderness. Abdominal: General: Abdomen is flat. Bowel sounds are normal. Palpations: Abdomen is soft. Tenderness: There is no abdominal tenderness. There is no guarding or rebound. Musculoskeletal: General: Normal range of motion. Cervical back: Normal range of motion and neck supple. No edema, erythema, rigidity, torticollis or crepitus. No pain with movement. Normal range of motion. Lymphadenopathy: Head: Right side of head: Submental adenopathy present. No submandibular, tonsillar, preauricular, posterior auricular or occipital adenopathy. Left side of head: Submental adenopathy present. No submandibular, tonsillar, preauricular, posterior auricular or occipital adenopathy. Cervical: No cervical adenopathy. Skin: General: Skin is warm and dry. Capillary Refill: Capillary refill takes less than 2 seconds. Findings: No rash. Neurological: General: No focal deficit present. Mental Status: She is alert and oriented to person, place, and time. Mental status is at baseline. Motor: No weakness. Coordination: Coordination normal. Gait: Gait normal. Psychiatric: Mood and Affect: Mood normal. Behavior: Behavior normal. Behavior is cooperative. Thought Content: Thought content normal. Judgment: Judgment normal. Assessment and Plan ASSESSMENT/PLAN: 1. Acute cough - ICD9: 786.2, ICD10: R05.1 (primary diagnosis) - Acute onset productive cough with green sputum for four days. Also reports wheezing, fatigue, body aches, chills and decreased appetite. - Was seen in [facility] care three days ago and diagnosed with an asthma exacerbation, started on oral prednisone burst and albuterol inhaler. Has since gotten worse. - History of pneumonia - Vital signs stable, not in acute distress - Before breathing treatment: expiratory wheezes in all lung nuñez; inspiratory wheezes in RUL; rhonchi in HODA and LLL - After breathing treatment: rhonchi in HODA and LLL; expiratory wheezes in HODA, LLL, and RLL - XR CHEST 2V FRONTAL/LAT- No consolidation. No lung mass. No pleural effusion. No pneumothorax. - Suspect asthma exacerbation with pneumonia - IPRATROPIUM 0.5 MG-ALBUTEROL 3 MG (2.5 MG BASE)/3 ML NEBULIZATION SOLN in office - FLUTICASONE PROPIONATE 50 MCG/ACTUATION NASAL SPRAY,SUSPENSION - PREDNISONE 10 MG TABLET - DOXYCYCLINE HYCLATE 100 MG TABLET - Follow-up with PCP ADRIAN 2. Mild intermittent asthma with acute exacerbation - ICD9: 493.92, ICD10: J45.21 - Mild intermittent asthma acute excacerbation without status - In office inhalation treatment with Albuterol 2 puffs PRN - Exacerbation treatment of prednisone taper - Avoidance of triggers recommended - Asthma education: Reviewed asthma signs, symptoms and monitoring and Instruction on inhalation device/technique - Follow up in 1 week, sooner should any other issues arise. - FLUTICASONE PROPIONATE 50 MCG/ACTUATION NASAL SPRAY,SUSPENSION - PREDNISONE 10 MG TABLET - DOXYCYCLINE HYCLATE 100 MG TABLET Calli Antunez TEACHING PROVIDER (Physician/PA/WORD PROCESSING OPERATOR) NOTE OF PERSONAL INVOLVEMENT IN CARE: I have personally seen and examined the patient and performed the medical decision-making components. I have reviewed the Advanced Practice Registered Nurse (WORD PROCESSING OPERATOR) Student's documentation and verified the findings in the note as written. Any additions or changes are noted in bold/italics. Signature: Yamilka Tom Date: 01/01/2024 Time: 4:54 PM documented in this encounter [facility] 01-01-2024 History of Presen t illness Narrative Radiology Service Progress Note PATIENT NAME: Mallika Espino DATE OF SERVICE: January 01, 2024 TIME: 3:11 PM PATIENT IDENTITY VERIFICATION COMPLETED USING TWO (2) IDENTIFIERS: Name and Date of confirmed by patient verbally. FALL SCREENING: Has the patient had 2 falls in the last year or 1 fall with injury or currently using an Ambulatory Assistive Device (Walker, Cane, Wheelchair, Crutches, etc.)? No PATIENT GENDER DATA: Female. status: : No status: NO. PATIENT RELEVANT IMPLANT DATA REVIEWED: Not Applicable PATIENT PRESENTS WITH AN IMPLANTABLE OR ATTACHED BRIM STITCHER: No RADIOLOGY DEPARTMENT: General X-ray: Exam(s) Completed: Chest X-Ray PERIPHERAL IV DATA: Not applicable SIGNED BY: RT Yuridia(R) January 01, 2024 3:11 PM documented in this encounter [facility] 01-01-2024 Note HNO ID: [id number] Author: JIMMY NIXON RT(Colleen) Service: Radiology Author Type: Technologist Type: Progress Notes Filed: 01/01/2024 15:19 Note Text: Radiology Service Progress Note PATIENT NAME: Mallika Espino DATE OF SERVICE: January 01, 2024 TIME: 3:11 PM PATIENT IDENTITY VERIFICATION COMPLETED USING TWO (2) IDENTIFIERS: Name and Date of confirmed by patient verbally. FALL SCREENING: Has the patient had 2 falls in the last year or 1 fall with injury or currently using an Ambulatory Assistive Device (Walker, Cane, Wheelchair, Crutches, etc.)? No PATIENT GENDER DATA: Female. status: : No status: NO. PATIENT RELEVANT IMPLANT DATA REVIEWED: Not Applicable PATIENT PRESENTS WITH AN IMPLANTABLE OR ATTACHED BRIM STITCHER: No RADIOLOGY DEPARTMENT: General X-ray: Exam(s) Completed: Chest X-Ray PERIPHERAL IV DATA: Not applicable SIGNED BY: RT Yuridia(Colleen) January 01, 2024 3:11 PM [facility] 12-29-2023 Note HNO ID: [id number] Author: TROY SANTIZO PA-C Service: ? Author Type: Physician Plug Assembler Type: Progress Notes Filed: 12/29/2023 10:51 Note Text: This note was created using ActualSunriter. Subjective Mallika Espino is a 23 year old female. HPI Presents with a chief complaint of cough and wheeze since last night. She has a history of asthma. She has been out of her albuterol over the past few weeks. She has not seen PCP in about 2-1/2 years. She states she is aged out of [facility] and does not have an adult provider. No fever. Her chest has been tight. She feels like her allergies are flared up as well. She does have Zyrtec but has not been taking that. No fever. No body aches or chills. No vomiting or diarrhea. Review of Systems Constitutional: Negative. HENT: Positive for congestion and rhinorrhea. Negative for ear pain and sore throat. Respiratory: Positive for cough, chest tightness, shortness of breath and wheezing. Cardiovascular: Negative. Gastrointestinal: Negative. Genitourinary: Negative. Musculoskeletal: Negative. All other systems reviewed and are negative. PAST MEDICAL HISTORY Diagnosis Date Psychiatric disorder Current Outpatient Medications Medication Sig Dispense Refill predniSONE (DELTASONE) 20 mg tablet Take 2 tablets by mouth once daily for 5 days. 10 tablet 0 albuterol HFA (PROAIR HFA) 90 mcg/actuation inhaler Inhale 2 Puffs as instructed every 6 hours as needed. 1 Each 0 albuterol (PROVENTIL) 2.5 mg /3 mL (0.083 %) nebulizer solution Use 3 mL via nebulizer every 4 hours as needed for wheezing/shortness of breath. Use over 5-15minutes. 75 mL 0 albuterol HFA (PROAIR HFA) 90 mcg/actuation inhaler Inhale 2 Puffs as instructed every 4 hours as needed. (Patient not taking: Reported on 12/29/2023) 1 Each 0 triamcinolone (KENALOG) 0.025 % cream Apply 1 application to affected area twice daily. (Patient not taking: Reported on 02/23/2021 ) 30 g 0 topiramate (TOPAMAX ORAL) Take by mouth. (Patient not taking: Reported on 02/23/2021 ) cetirizine (ZYRTEC) 10 mg tablet Take 1 tablet by mouth once daily as needed. (Patient not taking: Reported on 02/23/2021 ) 30 tablet 2 fluticasone (FLONASE) 50 mcg/actuation nasal spray Use 2 Sprays in each nostril once daily. Rinse mouth after use. (Patient not taking: Reported on 02/23/2021 ) 1 Bottle 1 Olopatadine (PATADAY) 0.2 % drop Use 1 Drop in both eyes once daily as needed. (Patient not taking: Reported on 02/23/2021 ) 1 Bottle 0 sertraline (ZOLOFT) 50 mg tablet Take 50 mg by mouth once daily. (Patient not taking: Reported on 02/23/2021 ) mupirocin (BACTROBAN) 2 % ointment Apply 1 application to affected area three times daily. Location: left index finger (Patient not taking: Reported on 02/15/2019 ) 1 Tube 0 FLUOXETINE HCL (PROZAC ORAL) Take by mouth. (Patient not taking: Reported on 02/23/2021 ) albuterol HFA (PROAIR HFA) 90 mcg/actuation inhaler Inhale 2 Puffs as instructed. (Patient not taking: Reported on 02/23/2021 ) No current facility-administered medications for this visit. PAST SURGICAL HISTORY Procedure Laterality Date TONSILLECTOMY HX No family history on file. Social History Tobacco Use Smoking status: Never Smokeless tobacco: Never Substance Use Topics Alcohol use: Never Drug use: Never Objective BP 112/76 Pulse 89 Temp 36.4 ?C (97.6 ?F) Resp 18 Wt 74 kg (163 lb 2.3 oz) LMP 12/29/2023 (Exact Date) SpO2 100% Physical Exam Vitals reviewed. Constitutional: Appearance: Normal appearance. HENT: Head: Normocephalic and atraumatic. Right Ear: Tympanic membrane, ear canal and external ear normal. Left Ear: Tympanic membrane, ear canal and external ear normal. Nose: Congestion present. Mouth/Throat: Mouth: Mucous membranes are moist. Pharynx: Oropharynx is clear. Cardiovascular: Rate and Rhythm: Normal rate and regular rhythm. Heart sounds: Normal heart sounds. Pulmonary: Effort: Pulmonary effort is normal. Breath sounds: Normal breath sounds. Musculoskeletal: Cervical back: Neck supple. Lymphadenopathy: Cervical: No cervical adenopathy. Skin: General: Skin is warm and dry. Neurological: Mental Status: She is alert. Assessment and Plan ASSESSMENT/PLAN: 1. Asthma with acute exacerbation, unspecified asthma severity, unspecified whether persistent - ICD9: 493.92, ICD10: J45.901 -Will treat with prednisone and refilled her albuterol inhaler and nebulizer solution. Recommended starting her Zyrtec as well. I did recommend she establish with a PCP as well. Patient agreeable with plan. If worsening be seen again. Troy Santizo PA-C [facility] 12-29-2023 History of Presen t illness Narrative This note was created using NoteWriter. Subjective Mallika Espino is a 23 year old female. HPI Presents with a chief complaint of cough and wheeze since last night. She has a history of asthma. She has been out of her albuterol over the past few weeks. She has not seen PCP in about 2-1/2 years. She states she is aged out of [facility] and does not have an adult provider. No fever. Her chest has been tight. She feels like her allergies are flared up as well. She does have Zyrtec but has not been taking that. No fever. No body aches or chills. No vomiting or diarrhea. Review of Systems Constitutional: Negative. HENT: Positive for congestion and rhinorrhea. Negative for ear pain and sore throat. Respiratory: Positive for cough, chest tightness, shortness of breath and wheezing. Cardiovascular: Negative. Gastrointestinal: Negative. Genitourinary: Negative. Musculoskeletal: Negative. All other systems reviewed and are negative. PAST MEDICAL HISTORY Diagnosis Date Psychiatric disorder Current Outpatient Medications Medication Sig Dispense Refill predniSONE (DELTASONE) 20 mg tablet Take 2 tablets by mouth once daily for 5 days. 10 tablet 0 albuterol HFA (PROAIR HFA) 90 mcg/actuation inhaler Inhale 2 Puffs as instructed every 6 hours as needed. 1 Each 0 albuterol (PROVENTIL) 2.5 mg /3 mL (0.083 %) nebulizer solution Use 3 mL via nebulizer every 4 hours as needed for wheezing/shortness of breath. Use over 5-15minutes. 75 mL 0 albuterol HFA (PROAIR HFA) 90 mcg/actuation inhaler Inhale 2 Puffs as instructed every 4 hours as needed. (Patient not taking: Reported on 12/29/2023) 1 Each 0 triamcinolone (KENALOG) 0.025 % cream Apply 1 application to affected area twice daily. (Patient not taking: Reported on 02/23/2021 ) 30 g 0 topiramate (TOPAMAX ORAL) Take by mouth. (Patient not taking: Reported on 02/23/2021 ) cetirizine (ZYRTEC) 10 mg tablet Take 1 tablet by mouth once daily as needed. (Patient not taking: Reported on 02/23/2021 ) 30 tablet 2 fluticasone (FLONASE) 50 mcg/actuation nasal spray Use 2 Sprays in each nostril once daily. Rinse mouth after use. (Patient not taking: Reported on 02/23/2021 ) 1 Bottle 1 Olopatadine (PATADAY) 0.2 % drop Use 1 Drop in both eyes once daily as needed. (Patient not taking: Reported on 02/23/2021 ) 1 Bottle 0 sertraline (ZOLOFT) 50 mg tablet Take 50 mg by mouth once daily. (Patient not taking: Reported on 02/23/2021 ) mupirocin (BACTROBAN) 2 % ointment Apply 1 application to affected area three times daily. Location: left index finger (Patient not taking: Reported on 02/15/2019 ) 1 Tube 0 FLUOXETINE HCL (PROZAC ORAL) Take by mouth. (Patient not taking: Reported on 02/23/2021 ) albuterol HFA (PROAIR HFA) 90 mcg/actuation inhaler Inhale 2 Puffs as instructed. (Patient not taking: Reported on 02/23/2021 ) No current facility-administered medications for this visit. PAST SURGICAL HISTORY Procedure Laterality Date TONSILLECTOMY HX No family history on file. Social History Tobacco Use Smoking status: Never Smokeless tobacco: Never Substance Use Topics Alcohol use: Never Drug use: Never Objective BP 112/76 Pulse 89 Temp 36.4 C (97.6 F) Resp 18 Wt 74 kg (163 lb 2.3 oz) LMP 12/29/2023 (Exact Date) SpO2 100% Physical Exam Vitals reviewed. Constitutional: Appearance: Normal appearance. HENT: Head: Normocephalic and atraumatic. Right Ear: Tympanic membrane, ear canal and external ear normal. Left Ear: Tympanic membrane, ear canal and external ear normal. Nose: Congestion present. Mouth/Throat: Mouth: Mucous membranes are moist. Pharynx: Oropharynx is clear. Cardiovascular: Rate and Rhythm: Normal rate and regular rhythm. Heart sounds: Normal heart sounds. Pulmonary: Effort: Pulmonary effort is normal. Breath sounds: Normal breath sounds. Musculoskeletal: Cervical back: Neck supple. Lymphadenopathy: Cervical: No cervical adenopathy. Skin: General: Skin is warm and dry. Neurological: Mental Status: She is alert. Assessment and Plan ASSESSMENT/PLAN: 1. Asthma with acute exacerbation, unspecified asthma severity, unspecified whether persistent - ICD9: 493.92, ICD10: J45.901 -Will treat with prednisone and refilled her albuterol inhaler and nebulizer solution. Recommended starting her Zyrtec as well. I did recommend she establish with a PCP as well. Patient agreeable with plan. If worsening be seen again. Troy Santizo PA-C documented in this encounter [facility] Evaluation note Diagnosis Asthma with acute exacerbation, unspecified asthma severity, unspecified whether persistent- Primary [facility] Acute cough- Primary Mild intermittent asthma with acute exacerbation Unspecified asthma, with exacerbation [facility] Diagnosis Abnormal uterine bleeding- Primary Unspecified disorder of menstruation and other abnormal bleeding from female genital tract Screening for cervical cancer Screening for malignant neoplasm of the cervix [facility] Diagnosis Bacterial vaginosis- Primary Vaginitis and vulvovaginitis, unspecified [facility] Acute cough [facility] Diagnosis Lower respiratory infection- Primary Other diseases of respiratory system, not elsewhere classified [facility] Diagnostic Procedure Only (Routine) - Open Specialty Diagnoses / Procedures Referred By Yazmin gordon Referred To Contact [facility] Diagnoses Abnormal uterine bleeding Procedures PELVIC US WHI US PELVIC NONOBSTETRIC REAL-TIME IMAGE Katelynn Mcdaniel APRN.CNP [address] [place] [address] [place] [address] Referral ID Status Reason Start Date Expiration Date V isits Requested Visits Authorized [id number] Open Auto-Generate d Referral 05/23/2024 05/23/2025 1 1 [facility] Summary Purpose Family History No Family History Records FoundNo Family History Records FoundNo Family History Records FoundNo Family History Records Found Advance Directives No Advanced Directives Records FoundNo Advanced Directives Records FoundNo Advanced Directives Records FoundNo Advanced Directives Records Found Additional Source Comments INFORMATION SOURCE (unrecogn ized section and content) DATE CREATED AUTHOR 05/28/2019 [facility] DATE CREATED AUTHOR AUTHOR'S ORGANIZ ATION 06/16/2021 [facility] DATE CREATED AUTHOR AUTHOR'S ORGANIZ ATION 03/05/2022 [facility] DATE CREATED AUTHOR AUTHOR'S ORGANIZ ATION 11/06/2024 [facility] Source Comments (unrecognize d section and content) In the event this informatio n is protected by the Federal Confidentiality of Alcohol and Drug Abuse Patient Records regulations: The Federal rules restrict any use of the information to criminally investigate or prosecute any alcohol or drug abuse patient.[facility] the event this information is protected by the Federal Confidentiality of Alcohol and Drug Abuse Patient Records regulations: The Federal rules restrict any use of the information to criminally investigate or prosecute any alcohol or drug abuse patient.[facility] the event this information is protected by the Federal Confidentiality of Alcohol and Drug Abuse Patient Records regulations: The Federal rules restrict any use of the information to criminally investigate or prosecute any alcohol or drug abuse patient.[facility] the event this information is protected by the Federal Confidentiality of Alcohol and Drug Abuse Patient Records regulations: The Federal rules restrict any use of the information to criminally investigate or prosecute any alcohol or drug abuse patient.[facility] the event this information is protected by the Federal Confidentiality of Alcohol and Drug Abuse Patient Records regulations: The Federal rules restrict any use of the information to criminally investigate or prosecute any alcohol or drug abuse patient.[facility] the event this information is protected by the Federal Confidentiality of Alcohol and Drug Abuse Patient Records regulations: The Federal rules restrict any use of the information to criminally investigate or prosecute any alcohol or drug abuse patient.[facility] Reason for Visit (unrecogniz ed section and content) Reason Comments Cough Chest congestion, wh eeze,SOB x 1 day Reason Comments Cough Chest congestion, wh eezing, SOB x5 days Reason Comments problem visit Heavy menses Reason Comments Results Reason Comments Cough Cough, ST, RUSSELL, vomit ing and sinus congestion x 3 weeks Inactive Administered Medications - up to 3 most recent administrations Administered Medications (un recognized section and content) Medication Order MAR Action Action Date Dose Rate Site ipratropium-albuterol 3 mL nebulizer solution (DUONEB) 3 mL, INHALATION, ONCE, 1 dose, On Thu01/01/24 at 1530, PROTECT FROM LIGHT. The unit-dose vial should remain stored in the protective foil pouch until time of use. Given 01/01/2024 3:28 PM EDT 3 mL FOR RECORDS PERTAINING TO PATIENTS WHO ARE OR HAVE BEEN ENROLLED IN A CHEMICAL DEPENDENCY/SUBSTANCEABUSE PROGRAM, SOME INFORMATION MAY BE OMITTED. This clinical summary was aggregated from multiple sources. Caution should be exercised in using it in the provision of clinical care. This summary normalizes information from multiple sources, and as a consequence, information in this document may materially change the coding, format and clinical context of patient data. In addition, data may be omitted in some cases. CLINICAL DECISIONS SHOULD BE BASED ON THE PRIMARY CLINICAL RECORDS. [employer] [facility]. provides no warranty or guarantee of the accuracy or completeness of information in this document.
== END 2025-05-15 23:05 | disposition home or self-care (01) ==
PROVIDERS: Emergency Provider Emergency Medicine; Referring Provider Emergency Medicine; Visit Provider Emergency Medicine
DX: S61.011A Laceration without foreign body of right thumb without damage to nail, initial encounter (principal); F41.9 Anxiety disorder, unspecified; W26.0XXA Contact with knife, initial encounter; Y93.G1 Activity, food preparation and clean up; Z79.899 Other long term (current) drug therapy; Z23 Encounter for immunization
CPT/HCPCS: 12001; 90471; 90715; 99282